=== PATIENT | male | born 1965 | race Hispanic/Latino ===

== ENCOUNTER 2017-12-30 08:04 | Inpatient (IN) | payer BC ==
--- NOTE | 2017-12-30 08:30 | ED PDOC ---
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 had mild tongue bite but otherwise no head injury and has been drowsy since. no sob/chest pain/abdomen pain/limb pain/dysuria. 12/30/17 08:27 Past Medical History - Provider Review Nursing Documentation Reviewed: Yes - Travel History Have you recently traveled outside US w/in the past 3 mons?: No If Yes, travel location?: [place] - Infectious Disease Hx of Infectious Diseases: None - Cardiac Hx Hypertension: Yes Other/Comment: IN unkown - Pulmonary Hx Respiratory Disorders: No - Neurological Hx Seizures: Yes Other/Comment: cva unknown - Psychiatric Hx Substance Use: No - Anesthesia Hx Anesthesia Reactions: No Family/Social History - Physician Review Nursing Documentation Reviewed: Yes Family/Social History: No Known Family HX Smoking Status: Unknown If Ever Smoked Hx Alcohol Use: Yes Frequency of alcohol use: Socially Hx Substance Use: No Allergies/Home Meds Allergies/Adverse Reactions: Allergies Penicillins Allergy (Verified 12/30/17 08:18) RASH lorazepam [From Ativan] Adverse Reaction (Verified 12/30/17 08:18) FATIGUE Home Medications: Home Meds Medication Instructions Recorded Confirmed Carvedilol [Coreg] 12.5 mg PO DAILY 12/30/17 12/30/17 Digoxin [Lanoxin] 0.25 mg PO DAILY 12/30/17 12/30/17 Folic Acid [Folic Acid] 1 gm PO DAILY 12/30/17 12/30/17 Magnesium Sulfate [Magnesium 250 mg PO DAILY 12/30/17 12/30/17 Sulfate] Pantoprazole Sodium [Protonix] 40 mg PO DAILY 12/30/17 12/30/17 Sodium Chloride [Sodium Chloride 2 gm PO TID 12/30/17 12/30/17 Tab] Spironolactone [Aldactone] 50 mg PO DAILY 12/30/17 12/30/17 Suvorexant [Belsomra] 10 mg PO HS 12/30/17 12/30/17 traZODone [Desyrel] 100 mg PO HS 12/30/17 12/30/17 Review of Systems - Review of Systems Constitutional: Normal Eyes: Normal ENT: Normal Respiratory: Normal Cardiovascular: Orthopnea Gastrointestinal: Normal Genitourinary Male: Normal Musculoskeletal: Normal Skin: Normal Neurological: Normal, Seizure Endocrine: Normal Hemo/Lymphatic: Normal Psychiatric: Normal Physical Exam Vital Signs Reviewed: Yes Vital Signs Temp Pulse Resp BP Pulse Ox 12/30/17 12:25 98 F 133 H 22 115/81 100 12/30/17 11:51 97 F L 142 H 19 122/75 99 12/30/17 09:59 98 F 139 H 20 108/72 98 12/30/17 08:21 98.0 F 133 H 16 107/76 95 Temperature: Afebrile Blood Pressure: Hypertensive Pulse: Tachycardic Respiratory Rate: Normal Appearance: Positive for: Well-Appearing, Non-Toxic, Comfortable Pain Distress: None Mental Status: Positive for: Lethargic - Systems Exam Head: Present: Atraumatic, Normocephalic Pupils: Present: PERRL, Other (left slighly enlarged pupil vs left b/l reactive) Extroacular Muscles: Present: EOMI Conjunctiva: Present: Normal Ears: Present: Normal Mouth: Present: Moist Mucous Membranes Pharnyx: Present: Normal Nose (External): Present: Atraumatic Nose (Internal): Present: Normal Inspection Neck: Present: Normal Range of Motion, Other (no ctl spinal or paraspinal tenderness) Respiratory/Chest: Present: Clear to Auscultation, Good Air Exchange Cardiovascular: Present: Regular Rate and Rhythm Abdomen: No: Tenderness, Distention, Normal Bowel Sounds, Peritoneal Signs, Rebound, Guarding, McBurney's Point Tender, Rovsing's Sign Present, Hernias, Feeding Tubes, Ostomy Tubes, Mass/Organomegaly, Scars, Other Back: Present: Normal Inspection Upper Extremity: Present: Normal Inspection Lower Extremity: Present: Normal Inspection Neurological: Present: Other (lethargy) Skin: Present: Warm, Normal Color Psychiatric: Present: Lethargic Medical Decision Making ED Course and Treatment: 52yoM, w hx of EF 25%, HTN, SIADH on replacement which states pt isn't the best with compliance, drinks 18 mcbride lites per day - alcohol withdrawal seizure 8yrs ago, CAD?/[place], CVA?, with longstanding left pupil enlargement vs right and now [place] by EMS from [place], has been drinking alcohol about 8-9 beers per day, and now having noted seizure generalized last night and since had x 8 with last 230am, sodium 119 and improved to 125, hb 12, potassium 3.1, anion gap 26, glucose 118, with valium given and then phenytoin 1gm/drip, thiamine 200mg iv/protonix 40mg/5% dextrose/0.9nacl/2gm magnesium. had mild tongue bite but otherwise no head injury and has been drowsy since. no sob/ chest pain/abdomen pain/limb pain/dysuria. ECG: sinus tachycardia wbc 9 hb 11 plts 337 CXR with atelectasis/infiltrate. granuloma. IV levaquin/vancomycin, ivf hydation bundle. 12/30/17 09:56 CT head: no acut intracranial with white matter changes. 12/30/17 09:58 BIPAP as pt sat 80s. 12/30/17 10:13 UA moderate blood/protein. 12/30/17 10:41 patient on bipap 97% - 100% o2sat. opens eyes, moving extremities. 12/30/17 10:45 Na 119 lactic acid 3.1 code sepsis called. IV levaquin/vancomycin, ivf hydation bundle na 75cc/hr due to seizure related to hyponatremia, pt stated EF 25% thus will hydrate gently. 12/30/17 11:28 K 4.4 etoh less than 10 12/30/17 11:56 pt recurrent lethargy, and having additional subtle seizures in the ED. will give keppra iv d/w Dr. West who stated will accept, ICU, neurolgy Jose White who was paged, nephrology Esteban Wells. d/w Dr. West, Dr. Grady and who agreed and will intubate for protection. Dr. Grady accepted to the ICU. 12/30/17 11:57 d/w Dr. Grady ICU who will evaluate patient. 12/30/17 12:36 procedure: patient consented from , etomidate/suchynyl coholine, glidescope visualized cords, ett 7.5 placed, yellow capnography, b/l bs, sat 98%. versed gtt and d/w who stated pt has fatigue but no allergic type symptoms with benzo's use. Reassessment Condition: Re-examined, Improved - Lab Interpretations Lab Results: 12/30/17 09:17 12/30/17 10:25 Lab Results 12/30/17 10:25: Troponin I 0.02 12/30/17 10:25: Sodium 120 L, Chloride 84 L, Potassium 4.4, Carbon Dioxide 25, Anion Gap 15, BUN < 2 L, Creatinine 0.4 L, Est GFR ( Amer) > 60, Est GFR (Non-Af Amer) > 60, Random Glucose 154 H, Calcium 7.3 L, Total Bilirubin 1.0, AST 103 H, ALT 24, Alkaline Phosphatase 176 H, Total Protein 6.6, Albumin 3.0, Globulin 3.5, Albumin/Globulin Ratio 0.9 L 12/30/17 10:25: APTT 35.9 12/30/17 10:25: pO2 69 H, VBG pH 7.29 L, VBG pCO2 60.0, VBG HCO3 28.9 H, VBG Total CO2 30.7 H, VBG O2 Sat (Calc) 94.2 H, VBG Base Excess 0.9, VBG Potassium 4.7, Sodium 119.0 L*, Chloride 83.0 L, Glucose 164 H, Lactate 3.1 H, FiO2 21.0, Venous Blood Potassium 4.7 12/30/17 10:25: Alcohol, Quantitative < 10 12/30/17 10:10: Urine Opiates Screen Negative, Urine Methadone Screen Negative, Ur Barbiturates Screen Negative, Ur Phencyclidine Scrn Negative, Ur Amphetamines Screen Negative, U Benzodiazepines Scrn Negative, U Oth Cocaine Metabols Negative, U Cannabinoids Screen Negative 12/30/17 09:41: Urine Color Light yellow, Urine Appearance Slight-cloudy, Urine pH 6.5, Ur Specific Golden 1.010, Urine Protein 30 H, Urine Glucose (UA) Negative, Urine Ketones Negative, Urine Blood Moderate H, Urine Nitrate Negative , Urine Bilirubin Negative, Urine Urobilinogen 0.2, Ur Leukocyte Esterase Negative, Urine RBC 0 - 2, Urine WBC 0 - 2, Ur Epithelial Cells None 12/30/17 09:17: WBC 9.0, RBC 3.11 L, Hgb 11.3 L, Hct 30.9 L, MCV 99.4, MCH 36.3 H, MCHC 36.6, RDW 15.8 H, Plt Count 337, MPV 9.1, Gran % 81.2 H, Lymph % (Auto) 5.2 L, Cherry % (Auto) 13.5 H, Eos % (Auto) 0.0 L, Baso % (Auto) 0.1, Gran # 7.31 H, Lymph # (Auto) 0.5 L, Cherry # (Auto) 1.2 H, Eos # (Auto) 0.0, Baso # (Auto) 0.01 I have reviewed the lab results: Yes - RAD Interpretation Radiology Orders: 12/30/17 08:26 HEAD W/O CONTRAST [CT] Stat CHEST PORTABLE [RAD] Stat 12/30/17 12:23 CHEST PORTABLE [RAD] Stat Head Of History: Radiologist (see mdm) - EKG Interpretation Interpreted by ED Physician: Yes (sinus tachycardia) Type: 12 lead EKG - Medication Orders Current Medication Orders: Folic Acid 1 mg/ Thiamine HCl 100 mg/ Multivitamins/Vitamin C 10 ml/ Dextrose 1 ,011.2 mls @ 100 mls/hr IV .Q10H7M SHERRIE Levofloxacin/Dextrose (Levaquin 750mg) 750 mg in 150 mls @ 100 mls/hr IVPB DAILY SHERRIE PRN Reason: Protocol Midazolam 100 mg/100ml in NS (Midazolam 100 Mg/100ml In Ns) 100 mg in 100 mls @ 1 mls/hr IV .Q24H PRN; Protocol; 1 MG/HR PRN Reason: Agitation Discontinued Medications Etomidate (Amidate) 20 mg IVP STAT STA Stop: 12/30/17 12:31 Sodium Chloride (Sodium Chloride 0.9%) 1,000 mls @ 100 mls/hr IV .Q10H SHERRIE Last Admin: 12/30/17 10:41 Dose: 100 mls/hr eMAR Start Stop Document 12/30/17 10:41 GMI (Rec: 12/30/17 10:42 [id number]) Intravenous Solution Start Date 12/30/17 Start Time 09:45 Vancomycin HCl (Vancomycin 1gm) 1 gm in 250 mls @ 167 mls/hr IVPB STAT STA PRN Reason: Protocol Stop: 12/30/17 11:10 Last Admin: 12/30/17 11:57 Dose: 167 mls/hr eMAR Start Stop Document 12/30/17 11:57 GMI (Rec: 12/30/17 11:58 [facility]MI [id number]) Intravenous Solution Start Date 12/30/17 Start Time 11:58 End Date 12/30/17 Levetiracetam 1,000 mg/ Sodium (Chloride) 110 mls @ 440 mls/hr IV ONCE ONE Stop: 12/30/17 12:08 Levofloxacin/Dextrose (Levaquin 750mg) 750 mg IVPB STAT STA PRN Reason: Protocol Stop: 12/30/17 09:42 Last Admin: 12/30/17 10:45 Dose: 750 mg eMAR Start Stop Document 12/30/17 10:45 GMI (Rec: 12/30/17 10:46 [facility]MI [id number]) Intravenous Solution Start Date 12/30/17 Start Time 10:00 Succinylcholine Chloride (Quelicin) 100 mg IV STAT STA Stop: 12/30/17 12:31 Disposition/Present on Arrival - Present on Arrival Any Indicators Present on Arrival: No History of DVT/PE: No History of Uncontrolled Diabetes: No Urinary Catheter: No History of Decub. Ulcer: No History Surgical Site Infection Following: None - Disposition Have Diagnosis and Disposition been Completed?: Yes Diagnosis: Pneumonia, Seizure, Hyponatremia Disposition: HOSPITALIZED Disposition Time: 12:40 Patient Plan: ICU Patient Problems: Current Active Problems Problem Status Onset Pneumonia Acute Seizure Acute Hyponatremia Acute Condition: CRITICAL Forms: [employer] ([place])
[2017-12-30 09:22] LABS: BASO # 0.01 K/mm3 (0.0-2.0); BASO % 0.1 % (0.0-3.0); GRAN # 7.31 (1.4-6.5); GRAN % 81.2 % (50.0-68.0); HEMOGLOBIN 11.3 g/dL (14.0-18.0); LYMPH # 0.5 (1.2-3.4); LYMPH % 5.2 % (22.0-35.0); MEAN CELL VOLUME 99.4 fl (80.0-105.0); MEAN CORPUSCULAR HEMOGLOBIN 36.3 pg (25.0-35.0); MEAN CORPUSCULAR HGB CONC 36.6 g/dl (31.0-37.0); MEAN PLATELET VOLUME 9.1 fl (7.0-11.0); MONO # 1.2 (0.1-0.6); MONO % 13.5 % (1.0-6.0); RBC 3.11 10^6/uL (3.5-6.1); RED CELL DISTRIBUTION WIDTH 15.8 % (11.5-14.5)
--- NOTE | 2017-12-30 09:25 | RAD ---
HISTORY: 52 yoM, seizure COMPARISON: No prior. FINDINGS: Note that the left lung apex is partially obscured by overlying mandible and facial soft tissue artifact. LUNGS: Bibasilar opacities may represent areas of atelectasis and or developing infiltrates. . Small calcified granuloma right lung apex. PLEURA: No significant pleural effusion identified, no pneumothorax apparent. CARDIOVASCULAR: Heart size is of borderline/mildly enlarged. OSSEOUS STRUCTURES: No significant abnormalities. VISUALIZED UPPER ABDOMEN: Normal. OTHER FINDINGS: Bilateral posterior fixation hardware seen overlying the lower cervical upper thoracic spine IMPRESSION: Bibasilar opacities may represent atelectasis and/or infiltrates.
[2017-12-30] MEDS ORDERED: Vancomycin 1gm in NS 250ml 1 GM/250 ML BAG IVPB STA (09:41)
[2017-12-30] MEDS ORDERED: levoFLOXacin 750 mg in D5W 150 ML BAG IVPB STA (09:41)
[2017-12-30] MEDS ORDERED: Sodium Chloride 0.9% 1,000 ML IV SCH (09:45)
--- NOTE | 2017-12-30 09:53 | CT ---
PROCEDURE: CT HEAD WITHOUT CONTRAST. HISTORY: 52yoM, with multiple seizures COMPARISON: None available. TECHNIQUE: Axial computed tomography images were obtained through the head/brain without intravenous contrast. Radiation dose: Total exam DLP = 987.08 mGy-cm. This CT exam was performed using one or more of the following dose reduction techniques: Automated exposure control, adjustment of the mA and/or kV according to patient size, and/or use of iterative reconstruction technique. FINDINGS: HEMORRHAGE: No acute parenchymal, subarachnoid nor extra-axial hemorrhage. BRAIN: Mild -moderate diffuse confluent chronic white matter ischemic changes seen extending peripherally into the deep and subcortical white matter both cerebral hemispheres. . In addition, more discrete chronic appearing superior basal ganglia/coronal radiata junction infarct also present. There may also be a few small faint small chronic left basal ganglia lacunar type infarcts as well. No obvious parenchymal nor extra-axial mass or collection seen on this noncontrast study. Moderate generalized volume loss. Vascular calcifications both carotid siphons and vertebral arteries. VENTRICLES: No obstructive hydrocephalus. CALVARIUM: Calvarium appears intact. PARANASAL SINUSES: Unremarkable as visualized. No significant inflammatory changes. MASTOID AIR CELLS: Unremarkable as visualized. No inflammatory changes. OTHER FINDINGS: None. IMPRESSION: No acute intracranial hemorrhage. Moderate chronic white matter ischemic changes as above.There may also be a few small faint small chronic left basal ganglia lacunar type infarcts as well.
[2017-12-30 09:54] LABS: PH,URINE 6.5 (4.7-8.0); URINE BILIRUBIN NEGATIVE (NEGATIVE); URINE BLOOD MODERATE (NEGATIVE); URINE GLUCOSE (UA) NEGATIVE (NEGATIVE); URINE LEUKOCYTE ESTERASE NEGATIVE Leu/uL (NEGATIVE); URINE PROTEIN 30 mg/dL (<30 mg/dL); URINE UROBILINOGEN 0.2 E.U./dL (<1 E.U./dL)
[2017-12-30 09:59] LABS: URINE APPEARANCE SLIGHT-CLOUDY (CLEAR); URINE COLOR LIGHT YELLOW (YELLOW)
[2017-12-30 10:29] LABS: URINE RBC 0 - 2 /hpf (0-2); URINE WBC 0 - 2 /hpf (0-6)
[2017-12-30 10:40] LABS: VENOUS BLOOD GAS BASE EXCESS 0.9 mmol/L (0.0-2.0); VENOUS BLOOD GAS PO2 69 mm/Hg (30-55); VENOUS BLOOD PH 7.29 (7.32-7.43)
[2017-12-30 11:10] LABS: CALCIUM 7.3 mg/dL (8.4-10.5); GFR AFRICAN-AMERICAN > 60; GFR NON-AFRICAN AMERICAN > 60
[2017-12-30 11:11] LABS: ALB/GLOB RATIO 0.9 (1.1-1.8); ALT/SGPT 24 U/L (7-56); AST/SGOT 103 U/L (17-59); BLOOD UREA NITROGEN < 2 mg/dL (7-21)
[2017-12-30 11:12] LABS: BARBITURATES, UR NEGATIVE (NEGATIVE); BENZODIAZEPINES, UR NEGATIVE (NEGATIVE)
[2017-12-30 11:13] LABS: OPIATES, UR NEGATIVE (NEGATIVE); PHENCYCLIDINE, UR NEGATIVE (NEGATIVE)
[2017-12-30] MEDS ORDERED: levETIRAcetam 1,000 MG in Sodium Chloride 0.9% 100 ML IV ONE (11:54)
[2017-12-30] MEDS ORDERED: Folic Acid 1 MG, Thiamine 100 MG, Multivitamin (MVI) 10 ML in Dextrose 5% In Water 1,00... IV SCH (12:00)
[2017-12-30] MEDS ORDERED: Etomidate 20 mg/10ml Inj IV ONE (12:13)
[2017-12-30] MEDS ORDERED: Succinylcholine 200 mg/10 ml Inj IV ONE (12:13)
[2017-12-30] MEDS ORDERED: Etomidate 20 mg/10ml Inj IVP STA (12:30)
[2017-12-30] MEDS ORDERED: Succinylcholine 200 mg/10 ml Inj IV STA (12:30)
--- NOTE | 2017-12-30 12:39 | RAD ---
HISTORY: Intubated COMPARISON: Comparison made with prior chest radiograph 12/30/2017 at 922 hours FINDINGS: Interval placement ETT, the tip of which lies approximately 6.4 cm above flor. LUNGS: Bibasilar opacities right greater than left which may represent atelectasis. Developing infiltrates could be excluded with followup radiographs. . PLEURA: No significant pleural effusion identified, no pneumothorax apparent. CARDIOVASCULAR: Normal. OSSEOUS STRUCTURES: No change. VISUALIZED UPPER ABDOMEN: Normal. OTHER FINDINGS: None. IMPRESSION: Interval placement ETT as above. Otherwise, no significant interval change in the appearance of what probably represents mild bibasilar atelectasis
--- NOTE | 2017-12-30 13:07 | CARD ---
APPROVED REPORT EKG Measurement Heart [id number] <Conclusion> Sinus tachycardia Possible Left atrial enlargement Rightward axis Inferior infarct, age undetermined Anterior infarct, age undetermined Abnormal ECG
[2017-12-30] MEDS ORDERED: Dexmedetomidine 400mcg/100mL 400 MCG/100 ML BOTTLE IV PRN (13:31)
[2017-12-30 13:55] LABS: VENOUS BLOOD GAS BASE EXCESS 4.7 mmol/L (0.0-2.0); VENOUS BLOOD GAS PO2 84 mm/Hg (30-55); VENOUS BLOOD PH 7.45 (7.32-7.43)
[2017-12-30 13:59] LABS: ARTERIAL BLOOD GAS HCO3 26.5 mmol/L (21-28); ARTERIAL BLOOD GAS O2 CAPACITY 14.8 mL/dl (16-24); ARTERIAL BLOOD GAS O2 CONTENT 14.8 ML/dl (15-23); ARTERIAL BLOOD GAS O2 SAT 100.1 % (95-98); ARTERIAL BLOOD GAS PCO2 39 mm/Hg (35-45); ARTERIAL BLOOD GAS PH 7.44 (7.35-7.45); ARTERIAL BLOOD GAS TCO2 27.7 mmol.L (22-28)
[2017-12-30 14:02] LABS: ALB/GLOB RATIO 0.9 (1.1-1.8); ALT/SGPT 27 U/L (7-56); AST/SGOT 83 U/L (17-59); BLOOD UREA NITROGEN < 2 mg/dL (7-21); GFR AFRICAN-AMERICAN > 60; GFR NON-AFRICAN AMERICAN > 60
[2017-12-30] MEDS ORDERED: Multivitamin (MVI) 10 ML, Thiamine 100 MG, Folic Acid 1 MG in Sodium Chloride 0.9% 1,00... IV ONE ×2 (14:04→17:10)
[2017-12-30 14:13] LABS: BASO # 0.01 K/mm3 (0.0-2.0); BASO % 0.1 % (0.0-3.0); GRAN # 9.02 (1.4-6.5); GRAN % 87.1 % (50.0-68.0); LYMPH # 0.4 (1.2-3.4); LYMPH % 3.9 % (22.0-35.0); MEAN CELL VOLUME 100.6 fl (80.0-105.0); MEAN CORPUSCULAR HEMOGLOBIN 35.5 pg (25.0-35.0); MEAN CORPUSCULAR HGB CONC 35.3 g/dl (31.0-37.0); MEAN PLATELET VOLUME 8.6 fl (7.0-11.0); MONO # 0.9 (0.1-0.6); MONO % 8.9 % (1.0-6.0); PLATELET COUNT 276 10^3/uL (120.0-450.0); RED CELL DISTRIBUTION WIDTH 15.7 % (11.5-14.5); WHITE BLOOD COUNT 10.4 10^3/ul (4.5-11.0)
[2017-12-30] MEDS ORDERED: Metoprolol 1 mg/ml Inj IVP STA (14:23)
[2017-12-30 14:42] LABS: LYMPHOCYTE 5 % (22.0-35.0); MONOCYTE 7 % (1.0-6.0); NEUTROPHIL 88 % (50.0-70.0)
[2017-12-30] MEDS: levoFLOXacin 500 mg in D5W 500 MG/100 ML BAG IVPB SCH (17:07)
[2017-12-30] MEDS: Vancomycin 1gm in NS 250ml 1 GM/250 ML BAG IVPB SCH (17:27)
[2017-12-30] MEDS ORDERED: Sodium Chloride 0.9% 500 ML IV STA (17:29)
[2017-12-30] MEDS: Meropenem IV 1 gm in NS 50 ML IVPB SCH ×2 (17:38→21:15)
[2017-12-30] MEDS: levETIRAcetam 500mg IVPB 500 MG/100 ML BAG IV SCH (21:15)
--- NOTE | 2017-12-30 21:23 | CON ---
DATE: 12/30/2017 HAIR OR BEAUTY SALON ASSISTANT NOTE REQUESTING PHYSICIAN: Julian West DO CHIEF COMPLAINT: Patient had multiple seizures, DTs, hyponatremia. HISTORY OF PRESENT ILLNESS: Mr. Chopra is a 52-year-old male that [place] cruise [place], noted to have been drinking over the week and started having seizures approximately 24 hours ago. The patient has had approximately 10 seizures. At this time, he is admitted to the intensive care unit and is intubated with FiO2 of 100%. Patient has felt that maybe related DTs are occurring and Precedex as well as banana bag has been started. May be a component of pneumonia and sepsis with ID consult called and antibiotics started. Patient is noted to be tachycardic at this time. He has a past history of alcohol abuse and DTs in the past. The patient had been drinking during his vacation on the cruise and has a history of alcohol withdrawal seizures approximately 8 years ago. He has a past history of coronary artery disease, myocardial infarction as well as CVA and a cervical neck fusion several months ago. Also, the patient has a history of SIADH and he presents with hyponatremia. PAST MEDICAL HISTORY: As above. ALLERGIES: HE HAS ALLERGIES TO PENICILLIN AND ATIVAN. MEDICATIONS: Can be evaluated as per the nurse's intake form. SOCIAL HISTORY: Patient has a past history of drug abuse. He is a present EtOH abuser and not sure if he has a history of smoking. FAMILY HISTORY: Noncontributory. REVIEW OF SYSTEMS: Unable to assess because the patient is intubated on the ventilator. PHYSICAL EXAMINATION: VITAL SIGNS: His temperature is 98, his pulse is 135, respirations are 20, and his BP is 134/87. SKIN: Warm and dry. HEENT: Head: Atraumatic, normocephalic. Eyes: Reactive to light. Ear, Nose, and Throat: Seemed to be within normal limits. NECK: Supple. No JVD. No thyroid enlargement. No lymph nodes. HEART: Regular rate and rhythm. Normal S1, S2, but tachycardic. LUNGS: His lungs reveal mild rhonchi bilaterally. ABDOMEN: Soft. Decreased bowel sounds. No organomegaly noted. GENITALIA AND RECTAL: Deferred. MUSCULOSKELETAL: No joint deformities. EXTREMITIES: Reveal no edema. NEUROLOGICAL: Patient is moving all extremities at this time. LABORATORY DATA: Reveal a white count of 9, hemoglobin of 11.3, hematocrit 30.9 with platelets of 337,000. His PTT is 35.9. VBG prior to intubation revealed a pH of 7.29, pO2 of 69, pCO2 of 60. Patient's sodium is 120, potassium 4.4, chloride 84 with a CO2 of 25, BUN of less than 2 and a creatinine of 0.4, glucose of 157, and mild elevation in his AST and alkaline phosphatase. Patient's lactate is 3.1. As far as the patient's chest x-ray, chest x-ray reveals that there is probable bibasilar atelectasis with possible infiltrates. CT of the head reveals no acute intracranial hemorrhage, moderate chronic white matter ischemic changes, small chronic left basal ganglia lacunar-type infarct as well. IMPRESSION: As far as my impression is concerned, this patient has lower lobe pneumonia/atelectasis. He has respiratory failure requiring ventilator support. Patient has ethyl alcohol seizures, multiple over the last 24 hours with altered mental status. 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 Patient is tachycardic as well. He has a past history of coronary artery disease, myocardial infarction, cerebrovascular accident, hypertension, and C4 to T1 spinal fusion. PLAN: As far as our plan, patient is on the ventilator and we will decrease the FiO2 as tolerated. Patient is getting banana bag and Precedex. We will continue with the antibiotics as per ID. Note, consults have been called with ID, Renal, and Neurology. The patient has gotten Keppra and the antibiotics so far is vancomycin and Levaquin. We will follow his electrolytes closely and correct as needed. Patient is scheduled for arterial blood gas and we will continue to treat aggressively along with the other consultants and the primary care doctor. Rodolfo Echavarria MD
[2017-12-30 21:55] LABS: INR 1.34 (0.93-1.08); PROTHROMBIN TIME 15.4 SECONDS (9.4-12.5)
[2017-12-30 22:02] LABS: ALB/GLOB RATIO 0.9 (1.1-1.8); ALBUMIN 2.6 g/dL (3.0-4.8); ALT/SGPT 34 U/L (7-56); AST/SGOT 62 U/L (17-59); BLOOD UREA NITROGEN < 2 mg/dL (7-21); CALCIUM 6.8 mg/dL (8.4-10.5); GFR AFRICAN-AMERICAN > 60; GFR NON-AFRICAN AMERICAN > 60
[2017-12-30] MEDS ORDERED: NOREPINEPHRINE BIT/0.9 % NACL 4 MG/250 ML BAG IV PRN (23:18)
--- NOTE | 2017-12-30 23:29 | HP ---
DATE OF EXAM: 12/30/2017 HISTORY OF PRESENT ILLNESS: I saw Tino in the emergency room. I was called down by the ER doctor. He comes from the cruise ship. He is not doing well. He is having seizures on the cruise ship. He normally drinks 18 beers a day. He only drank 8 or 9 yesterday. It could be alcohol withdrawal. He is out of it now and BiPAP in the bed. He is also seizing right in front of me. We are going to put him on a Keppra drip and try to get him to the Intensive Care Unit and will probably need to be intubated because he is on BiPAP right now. He is a 52-year-old male with his , who is a nurse practitioner, states he is an alcoholic who drinks 18 beers a day. He has been drinking this way for 8 years. She cannot get him to stop. PAST MEDICAL HISTORY: He has a past medical history of CAD, [place], CVA. He had a longstanding left pupil enlargement from old stroke. He is having seizures since this morning. They are from [place], [place]. He was given Valium and Dilantin on the cruise ship. He had mild tongue biting. Otherwise, no head injury. He is very drowsy, not waking up at this time. He is actively seizing in front of me. He was just in [place]. He has a history of hypertension, myocardial infarction, seizures, CVA. FAMILY HISTORY: No known family history. SOCIAL HISTORY: He is an alcoholic. Drinks daily. No apparent substance abuse. Not sure if he has ever smoked. ALLERGIES: PENICILLIN AND ATIVAN. MEDICATIONS: He is currently on Coreg, Lanoxin, folic acid, magnesium sulfate, Protonix, sodium chloride. He has low sodium chronically. Aldactone, Belsomra, Desyrel. REVIEW OF SYSTEMS: Difficult to get any kind of review of systems. He is unresponsive in the bed in the ER. states that he has not really woken up for about 10 hours now. PHYSICAL EXAMINATION: VITAL SIGNS: He has a 97 temperature, 142 pulse, 19 respiratory rate, 122/75 blood pressure, 99% O2 sat on oxygen. GENERAL: He is lethargic. He is out of bed, unresponsive. HEENT: Head is atraumatic, normocephalic. Left enlarged pupil secondary to old stroke. No apparent trauma to the head that I could tell. He said he beat his tongue on the cruise ship. HEART: Regular rate and tachy. LUNGS: Decreased breath sounds. Poor inspiration, on BiPAP. ABDOMEN: Soft. Positive bowel sounds. No apparent guarding or rebound. EXTREMITIES: No edema. SKIN: For what I could tell is intact. Warm and dry. LABORATORY DATA: He has a negative urine drug screen. Alcohol less than 10, this could be alcohol withdrawal. Urine has moderate blood, negative. He has 120 sodium, 4.4 potassium, BUN less than 2, creatinine 0.4, GFR is greater than 60, sugar is 154, calcium is 7.3. Total bili is 1, AST is 103, ALT is 45, alk phos 176, total protein 6.6. He might need to be on 3% saline. Blood gas showed 119 sodium. White count is 9, hemoglobin 11.3, hematocrit 30.9, platelets of 337. Chest x-ray showed possible pneumonia and head CT showed chronic strokes in the past. He will have consults with renal, neuro, high school assistant principal, gravity prospecting operator, and veterinary technician instructor. He is in serious condition and he is to go to the intensive care unit. Probably, he will be intubated shortly. He has seizures, active; alcohol withdrawal; infiltrates; low sodium. Julian West DO
[2017-12-31] MEDS: Midazolam 100 mg/100ml in NS 100 MG/100 ML SOL IV PRN ×2 (00:44→16:03)
[2017-12-31] MEDS ORDERED: Magnesium Sulfate 2 GM in Sodium Chloride 0.9% 100 ML IVPB ONE ×2 (02:11→03:00)
--- NOTE | 2017-12-31 02:15 | PCM.PROC ---
Procedures Attestation:: I certify that I have explained the specified Operation(s) or Procedure(s), risks, benefits and reasonable alternatives to the Patient and/or other person responsible. The opportunity was given to ask questions and all questions answered - Central Line Placement Right Internal Jugular Triple Lumen Catheter Aseptic technique was employed throughout the procedure: Hand Hygiene done prior to procedure, Full sterile barriers (mask, hair cover, sterile gown, sterile gloves), Full body sterile drape, Chloraprep Antiseptic: 30 second prep for IJ or SC sites CVP Time Out Performed: Yes Pt. Placed on Pulse Ox Monitor: Yes Central Line Prep: Chlorhexidine-Alcohol Combination Ultrasound Used for Placement: Yes Central Line Lumen Inserted: triple Central Line Length: 16 cm Post Procedure: Sutured in Place, Good Blood Return, All Ports Aspirated, Flushed, Capped, Sterile Dressing Applied Secured by: Suture Post procedure dressing: Chlorhexidine disc (Biopatch) Post Procedure X-Ray: Yes Patient Tolerated Procedure: Well Immediate Complications: None
[2017-12-31 02:17] LABS: VENOUS BLOOD GAS BASE EXCESS 5.8 mmol/L (0.0-2.0); VENOUS BLOOD GAS PO2 40 mm/Hg (30-55); VENOUS BLOOD PH 7.43 (7.32-7.43)
[2017-12-31] MEDS ORDERED: MULTIVITAMIN IV SCH (03:15)
[2017-12-31] MEDS ORDERED: [UNRECOGNIZED DRUG - OTHER] IV SCH (03:15)
[2017-12-31] MEDS ORDERED: FOLIC ACID IV SCH (03:15)
[2017-12-31] MEDS ORDERED: THIAMINE IV SCH (03:15)
--- NOTE | 2017-12-31 04:43 | CON ---
DATE: 12/30/2017 The patient was seen in the emergency room earlier. CHIEF COMPLAINT: Respiratory failure times one day. HISTORY OF PRESENT ILLNESS: This is a 52-year-old male with a history of SIADH, on replacement who is an alcoholic, significant alcohol use and history of withdrawal seizures, questionable coronary artery disease and myocardial infarction, cerebrovascular accident, brought in from the cruise ship and drinking significant amount of alcohol on the ship. Noted to have seizures and was given Valium and with a history of hypertension and seizures. The patient was seen in the emergency room, unable to communicate and intubated on a ventilator. Infectious Disease consultation requested. PAST MEDICAL HISTORY: Significant for alcoholism, hypertension, pancreatitis, kidney stones, chronic obstructive lung disease. PAST SURGICAL HISTORY: Significant for cardiac catheterization. ALLERGIES: THE PATIENT IS ALLERGIC TO PENICILLIN AND LORAZEPAM. MEDICATIONS AT HOME: Reveals the patient is on Aldactone, Protonix, Lanoxin, Coreg, magnesium, folic acid, sodium chloride tablets, Belsomra, Desyrel. PHYSICAL EXAMINATION GENERAL: The patient is in bed, intubated on a ventilator. VITAL SIGNS: Temperature of 98, blood pressure is 123/70, respiratory rate of 22, heart rate of 119. HEENT: Unremarkable. NECK: Supple. LUNGS: Have decreased breath sounds. HEART: Normal S1, S2. ABDOMEN: Soft, nontender. LABORATORY DATA: Reveals a white count of 9, hemoglobin of 11, platelets of 337. The patient has 88% polys and coag is 35 and oxygenation is reviewed. Blood gases are reviewed. BUN of 2, creatinine of 0.4. AST is 103, alkaline phosphatase is 173. Sodium is 120. Urinalysis is noted, 0-2 wbc's. The patient had a chest x-ray read by Dr. Calvin Amaro, atelectasis, can exclude infiltrates, placement of a G-tube. The patient also had a CAT scan of the head. No acute hemorrhage in earlier x-ray. Chest x-ray dated 03/30 are basilar infiltrates may represent atelectasis or developing infiltrates, also read by Dr. Calvin Amaro. EKG is noted, QTc of 442. Review of orders revealed blood cultures, urine cultures have been ordered. MRSA screen has been ordered. We will order sputum cultures. We will order an HIV because of his age of 52 and the hepatitis profile. We will also order a procalcitonin and we will start the patient on vancomycin, meropenem, although HE IS ALLERGIC TO PENICILLIN AND LEVAQUIN. We will also order a urine for Legionella antigen and we will make further recommendations pending pancultures, initial workup and clinical response. We will give each antibiotic first dose now to assure adequate antibiotic coverage for today pending blood cultures, urine cultures, sputum cultures, serology, imaging results and we will follow closely with you. Kumar Garvin MD
[2017-12-31 04:44] LABS: MEAN CELL VOLUME 101.3 fl (80.0-105.0); MEAN CORPUSCULAR HEMOGLOBIN 35.7 pg (25.0-35.0); MEAN CORPUSCULAR HGB CONC 35.2 g/dl (31.0-37.0); MEAN PLATELET VOLUME 8.8 fl (7.0-11.0); RBC 2.3 10^6/uL (3.5-6.1); WHITE BLOOD COUNT 8.3 10^3/ul (4.5-11.0)
[2017-12-31 04:54] LABS: INR 1.26 (0.93-1.08); PARTIAL THROMBOPLASTIN TIME 38.1 Seconds (25.1-36.5); PROTHROMBIN TIME 14.4 SECONDS (9.4-12.5)
[2017-12-31] MEDS: Meropenem IV 1 gm in NS 50 ML IVPB SCH ×3 (05:14→23:19)
[2017-12-31 05:29] LABS: ALB/GLOB RATIO 0.8 (1.1-1.8); ALBUMIN 2.2 g/dL (3.0-4.8); ALT/SGPT 23 U/L (7-56); AST/SGOT 48 U/L (17-59); BLOOD UREA NITROGEN 2 mg/dL (7-21); CALCIUM 7.1 mg/dL (8.4-10.5); GFR AFRICAN-AMERICAN > 60; GFR NON-AFRICAN AMERICAN > 60
[2017-12-31 05:43] LABS: HEMOGLOBIN 8.2 g/dL (14.0-18.0)
[2017-12-31] MEDS: Vancomycin 1gm in NS 250ml 1 GM/250 ML BAG IVPB SCH (06:02)
--- NOTE | 2017-12-31 06:32 | CP.PCM.PCO ---
Additional Comments - Additional Comments Additional Comments: Overnight Events: -SBP ranging in 80s yesterday evening -Intermittent seizure-like activity noted by RN -Therefore, Versed drip started as a result (and Precedex discontinued) -After starting Versed drip, seizure-like activity appears to have resolved -To avoid hypotension as side effect of Versed, low-dose Levophed drip also started -As a result, TLC (RIJ) placed (without any complications) -Also, on AM labs, Hgb=8.2 (down from 11.0 yesterday) -No overt bleeding noted -Therefore, stat repeat CBC ordered (result pending) -Will sign-out above events to daytime boxing and pressing supervisor (Dr. Echavarria)
[2017-12-31 06:59] LABS: ARTERIAL BLOOD GAS HCO3 27.9 mmol/L (21-28); ARTERIAL BLOOD GAS HEMOGLOBIN 7.9 g/dL (11.7-17.4); ARTERIAL BLOOD GAS O2 CONTENT 10.9 ML/dl (15-23); ARTERIAL BLOOD GAS O2 SAT 99.1 % (95-98); ARTERIAL BLOOD GAS PCO2 35 mm/Hg (35-45); ARTERIAL BLOOD GAS PH 7.51 (7.35-7.45)
[2017-12-31 07:15] LABS: HEMOGLOBIN 8.1 g/dL (14.0-18.0); MEAN CELL VOLUME 101.3 fl (80.0-105.0); MEAN CORPUSCULAR HEMOGLOBIN 35.7 pg (25.0-35.0); MEAN CORPUSCULAR HGB CONC 35.2 g/dl (31.0-37.0); MEAN PLATELET VOLUME 8.6 fl (7.0-11.0); RBC 2.27 10^6/uL (3.5-6.1); RED CELL DISTRIBUTION WIDTH 16.2 % (11.5-14.5); WHITE BLOOD COUNT 7.9 10^3/ul (4.5-11.0)
[2017-12-31] MEDS: levoFLOXacin 500 mg in D5W 500 MG/100 ML BAG IVPB SCH (09:03)
[2017-12-31] MEDS: levETIRAcetam 500mg IVPB 500 MG/100 ML BAG IV SCH ×2 (09:06→21:47)
[2017-12-31] MEDS: Multivitamin (MVI) 10 ML, Folic Acid 1 MG, Thiamine 100 MG in Sodium Chloride 0.9% 1,00... IV SCH (09:07)
[2017-12-31] MEDS ORDERED: Sodium Chloride 3% 500 ML IV SCH (09:30)
--- NOTE | 2017-12-31 09:34 | RAD ---
HISTORY: Status post TLC placement. COMPARISON: No prior. FINDINGS: Interval placement right IJ triple-lumen catheter with tip in the SVC. Status post TLC placement. No change in situ endotracheal tube the tip of which lies approximately 5.6 cm above flor. LUNGS: Mild bibasilar atelectasis and/or infiltrate right lung base. Minimal atelectasis left lung base PLEURA: No significant pleural effusion identified, no pneumothorax apparent. CARDIOVASCULAR: Normal. OSSEOUS STRUCTURES: No change multilevel posterior fixation hardware lower cervical/ upper thoracic spine VISUALIZED UPPER ABDOMEN: Normal. OTHER FINDINGS: None. IMPRESSION: Support lines and tubes as above Mild bibasilar atelectasis and/or infiltrate right lung base. Minimal atelectasis left lung base
--- NOTE | 2017-12-31 09:58 | RAD ---
HISTORY: Intubation COMPARISON: Comparison made with prior study 12/30/2017 at 2316 hours FINDINGS: In situ ETT, tip of which lies approximately 4.0 cm above flor. . No change right IJ triple-lumen catheter tip in the SVC. LUNGS: Mild central pulmonary vascular congestive changes with what appears represent early bilateral lower lobe alveolar-type infiltrates. PLEURA: No significant pleural effusion identified, no pneumothorax apparent. CARDIOVASCULAR: Cardiac silhouette unchanged OSSEOUS STRUCTURES: Posterior fixation hardware lower cervical upper thoracic region remains unchanged VISUALIZED UPPER ABDOMEN: Normal. OTHER FINDINGS: None. IMPRESSION: Support lines and tubes as above. Mild central pulmonary vascular congestive changes with what appears represent early bilateral lower lobe alveolar-type infiltrates.
[2017-12-31] MEDS ORDERED: levoFLOXacin 750 mg in D5W 750 MG/150 ML BAG IVPB SCH (10:00)
[2017-12-31] MEDS ORDERED: levETIRAcetam 1,000 MG in Sodium Chloride 0.9% 100 ML IV STA (11:30)
--- NOTE | 2017-12-31 11:37 | PN ---
DATE: 12/31/2017 SUBJECTIVE: The patient is in bed. No acute distress. Nontoxic; however, remains intubated on the ventilator. Appears comfortable. Was seen very early this morning. PHYSICAL EXAMINATION: VITAL SIGNS: Temperature is 99.6, blood pressure is 84/50, respiratory rate on the vent, heart rate of 116. HEENT: Examination of HEENT is ET tube in place. NECK: Supple. LUNGS: Have decreased breath sounds. HEART: Normal S1 and S2. ABDOMEN: Soft, nontender. No rebound. No guarding. LABORATORY DATA: Laboratory examination reveals a white count of 7.9, hemoglobin of 8 and the patient has 87% granulocytes and 3% lymphocytes. Coagulation is INR is 1.26. Blood gases are reviewed. The patient's sodium is 123 with a BUN of 2, creatinine of 0.4 and random glucose is 145 and procalcitonin 0.23 with normal alk phos at this point and normal LFTs. Urinalysis is unremarkable. Toxicology is noted and HIV is nonreactive. Microbiology reveals the blood cultures are negative. Urine cultures are negative. Imaging reveals the patient's chest x-ray from today read by Dr. Calvin Amaro, vascular congestion, early alveolar-type infiltrates cannot be excluded. Dr. Rueda's report is reviewed. ASSESSMENT AND PLAN: A 52-year-old male with a history of syndrome of inappropriate antidiuretic hormone, which is on replacement, alcoholic, significant alcohol use and withdrawal seizures and coronary artery disease, myocardial infarction, cerebrovascular accident. Brought in from the cruise ship after having significant alcohol consumption. The patient with seizures and history of hypertension and seizures and kidney stones and chronic obstructive lung disease, history of pancreatitis, now with respiratory failure, intubated on the ventilator with systemic inflammatory response syndrome with negative blood cultures, negative urine cultures, negative procalcitonin. Currently on Levaquin and meropenem, vancomycin. The patient is afebrile. Dr. Echavarria's consultation from yesterday is reviewed and he feels the patient has lower lobe atelectasis/pneumonia, alcoholic seizures, syndrome of inappropriate antidiuretic hormone, antidiuretic hormone with the negative blood cultures. We will discontinue the vancomycin. Urine Legionella antigen is pending. We will continue Levaquin and we will also add acyclovir. We will discuss with Neurology regarding need for spinal tap as the patient continues to have seizures. Kumar Garvin MD
[2017-12-31 12:01] LABS: BLOOD UREA NITROGEN 3 mg/dL (7-21); CALCIUM 7.3 mg/dL (8.4-10.5); GFR AFRICAN-AMERICAN > 60; GFR NON-AFRICAN AMERICAN > 60
[2017-12-31] MEDS: Propofol 10 mg/ml 1,000 MG/100 ML VIAL IV PRN (12:18)
--- NOTE | 2017-12-31 12:26 | PN ---
DATE: 12/31/2017 PHOTO CHECKER AND ASSEMBLER NOTE LOCATION: [facility]. SUBJECTIVE: The patient is on ventilator, FiO2 of 30%, oxygenating well. He continues to require Levophed to support his blood pressure and is on Versed for sedation. The patient also continues to have left arm twitching, occasionally question whether these are episodes of seizure or the fact that he is having DTs. Patient has been given Ativan, which helps with the left arm tremors. Chart does state that THE PATIENT IS ALLERGIC TO ATIVAN, but in talking with his , HE IS NOT ALLERGIC TO ATIVAN and he has not had any adverse effects since we have been giving it here in the hospital. PHYSICAL EXAMINATION: VITAL SIGNS: Patient's temperature is 99.6, his pulse is 116, BP is 105/50 and respirations are 20 and O2 saturation is 100%. HEENT: Head is atraumatic, normocephalic. Eyes: Reactive to light. Ear, nose, and throat: Seemed to be within normal limits. NECK: Supple. No JVD. No thyroid enlargement. No lymph nodes. HEART: Has regular rate and rhythm. Normal S1, S2, but tachycardic. LUNGS: Reveal good breath sounds bilaterally. ABDOMEN: Soft. Decreased bowel sounds. GENITALIA: Deferred. RECTAL: Deferred. MUSCULOSKELETAL: No joint deformities. EXTREMITIES: Reveal no edema. NEUROLOGICAL: He is sedated on the ventilator. LABORATORY DATA: As far as his laboratories, his sodium is 123, potassium 3.3, chloride 89, CO2 of 29 with a BUN of 2, creatinine of 0.4 and a glucose of 145. His white blood count is 7.9, hemoglobin is 8.1, hematocrit 23 with platelets of 250,000. Arterial blood gas reveals a pH of 7.51, pCO2 of 35, pO2 of 122. Chest x-ray is pending. IMPRESSION: As far as my impression, patient has lower lobe pneumonia and atelectasis with respiratory failure requiring ventilator support. He has ethyl alcohol seizures, and history of alcohol abuse and seems to be in DTs at this time. Patient has hyponatremia with a history of syndrome of inappropriate antidiuretic hormone secretion and at this time is tachycardic with hypotension that requires Levophed. The patient has a history of coronary artery disease, myocardial infarction, cerebrovascular accident, hypertension, and C4-T1 spinal fusion. PLAN: As far as our plan, we will continue with ventilator support and decrease the FiO2 as tolerated. The patient is getting Levophed to support his blood pressure and is on Versed for sedation. It is noted that laboratories were repeated to evaluate his hemoglobin and it is noted that is 8.1 at this time. Patient is getting periodic Ativan for seizures and Keppra. He is being followed with chest x-ray and arterial blood gas. He is on antibiotics of vanco and Levaquin and we will continue to treat aggressively along with the other consultants and the primary care doctor. Rodolfo Echavarria MD
--- NOTE | 2017-12-31 14:18 | CP.PCM.CON ---
History of Present Illness - History of Present Illness History of Present Illness: renal consult note 52 yr old currently intubated and sedated on pressor, and anti seizure meds is admitted after having seziure on cruise. hx is obtained from . pateint has long standing hx of alcohol dependence, htn, siadh on salt tabs daily heavy drinker is admitted after having seizure on ship. he has been drinking beer daily on [place] ship last admission was in october 2017 in [place], when the sodium was 132 on dc. one episode of hx of seizure 8 years ago when he was in alcohol withdrawl. f/h; negative for kidney disease social hx; lives in [place], drinks alcohol 8-10 beer daily medical hx: alcohol dep, htn complete ros is unable to obtain as intubated pe: vitals reviewed intubated sedated heent normal op moist ett + s1s2 present, tachycardia no resp distress, vent dep no edema abd soft non distended skin normal ao times 0 psy unable to assess A&P: acute on chronic hyponatremia/alcohol dependence/seizure disorder/acute resp failure sodium on admission was 120 and now 123, still having active seizure i have ordered urine studies and urine osm and serum osm recommend 3% saline @ 10 cc per hour with no bolus monitor BMP q6 monitor I&Os vent and pressor support per icu d/w marble cutter Past Patient History - Infectious Disease Hx of Infectious Diseases: None - Past Social History Smoking Status: Current Some Days Smoker - CARDIAC Hx Cardiac Disorders: Yes Hx Angina: Yes Hx Cardia Arrhythmia: Yes Hx Circulatory Problems: No Hx Congestive Heart Failure: Yes Hx Heart Murmur: No Hx Heart Transplant: No Hx Hypercholesterolemia: No Hx Hypertension: Yes Hx Internal Defibrillator: No Hx Mitral Valve Prolapse: No Hx Pacemaker: No Hx Peripheral Edema: No Hx Peripheral Vascular Disease: No Other/Comment: Echo - 25 % Ef - PULMONARY Hx Respiratory Disorders: Yes Hx Asthma: No Hx Bronchitis: No Hx Chronic Obstructive Pulmonary Disease (COPD): Yes Hx Emphysema: No Hx Pneumonia: No Hx Respiratory Aspiration: No Hx Respiratory Tract Infection: No Hx Sleep Apnea: No Hx Tuberculosis: No - NEUROLOGICAL Hx Neurological Disorder: Yes Hx Alzheimer's Disease: No HX Cerebrovascular Accident: Yes Hx Dementia: No Hx Dizziness: No Hx Meningitis: No Hx Migraine: No Hx Parkinson's Disease: No Hx Seizures: Yes Hx Transient Ischemic Attacks (TIA): No - HEENT Hx HEENT Problems: No - RENAL Hx Chronic Kidney Disease: No Hx Dialysis: No Hx Kidney Stones: Yes Hx Neurogenic Bladder: No Hx Pyelonephritis: No Hx Renal (Kidney) Cancer: No Hx Renal Failure: No Other/Comment: SIADH - ENDOCRINE/METABOLIC Hx Endocrine Disorders: No - HEMATOLOGICAL/ONCOLOGICAL Hx Blood Disorders: No - INTEGUMENTARY Hx Dermatological Problems: No - MUSCULOSKELETAL/RHEUMATOLOGICAL Hx Falls: No - GASTROINTESTINAL Hx Gastrointestinal Disorders: No Hx Colostomy: No Hx Crohn's Disease: No Hx Diverticulitis: No Hx Gall Bladder Disease: No Hx Gastroesophageal Reflux: No Hx Ileostomy: No Hx Liver Failure: No Hx Pancreatitis: Yes HX Swallowing Problems: Yes Hx Ulcer: No - GENITOURINARY/GYNECOLOGICAL Hx Genitourinary Disorders: No Hx Hematuria: No Hx Incontinence: No Hx Prostate Problems: No Hx Sexually Transmitted Disorders: No Hx Urinary Tract Infection: No - PSYCHIATRIC Hx Substance Use: Yes - SURGICAL HISTORY Hx Surgeries: Yes Hx Cardiac Catheterization: Yes Hx Coronary Stent: No Other/Comment: Orthoscopic sx on knee. Right arm SX. Cervical fusion - ANESTHESIA Hx Anesthesia Reactions: No Meds Allergies/Adverse Reactions: Allergies Allergy/AdvReac Type Severity Reaction Status Date / Time Penicillins Allergy RASH Verified 12/30/17 08:18 - Medications Medications: Current Medications Digoxin (Lanoxin) 0.25 mg IVP 1400 SHERRIE Midazolam 100 mg/100ml in NS (Midazolam 100 Mg/100ml In Ns) 100 mg in 100 mls @ 1 mls/hr IV .Q24H PRN; Protocol; 1 MG/HR PRN Reason: Agitation Last Titration: 12/31/17 02:30 Dose: 5 mg/hr, 5 mls/hr Levetiracetam (Keppra 500mg Ivpb) 500 mg in 100 mls @ 400 mls/hr IV Q12 SHERRIE Last Admin: 12/31/17 09:06 Dose: 400 mls/hr Levofloxacin/Dextrose (Levaquin 500mg) 500 mg in 100 mls @ 100 mls/hr IVPB DAILY SHERRIE PRN Reason: Protocol Stop: 01/08/18 16:33 Last Admin: 12/31/17 09:03 Dose: 100 mls/hr Meropenem (Merrem Iv 1 Gm Premix) 50 mls @ 100 mls/hr IVPB Q8 SHERRIE PRN Reason: Protocol Stop: 01/07/18 16:34 Last Admin: 12/31/17 05:14 Dose: 100 mls/hr NOREPINEPHRINE BIT/0.9 % NACL (Levophed 4 Mg/ 250 Ml Ns Premixed) 4 mg in 250 mls @ 15 mls/hr IV .[id number] PRN; Protocol; 4 MCG/MIN PRN Reason: TITRATE PER MD ORDER Last Titration: 12/31/17 06:45 Dose: 4 mcg/min, 15 mls/hr Multivitamins/Vitamin C 10 ml/Folic Acid 1 mg/ Thiamine HCl 100 mg/ Sodium Chloride 1,011.2 mls @ 50 mls/hr IV .[id number] [facility] Last Admin: 12/31/17 09:07 Dose: 50 mls/hr Sodium Chloride (Hypertonic Saline 3%) 500 mls @ 10 mls/hr IV .Q24H [facility] Stop: 12/31/17 23:00 Last Admin: 12/31/17 10:30 Dose: 10 mls/hr Acyclovir 750 mg/ Sodium (Chloride) 100 mls @ 100 mls/hr IV Q8 SHERRIE PRN Reason: Protocol Stop: 01/09/18 11:01 Last Admin: 12/31/17 12:23 Dose: 100 mls/hr Propofol (Diprivan) 1,000 mg in 100 mls @ 1.56 mls/hr IV .Q24H PRN; Protocol; 5 MCG/KG/MIN PRN Reason: TITRATE PER MD ORDER Last Admin: 12/31/17 12:18 Dose: 5 mcg/kg/min, 1.56 mls/hr Lorazepam (Ativan) 2 mg IVP Q6H PRN; Protocol PRN Reason: Anxiety Last Admin: 12/31/17 08:59 Dose: 2 mg Pantoprazole Sodium (Protonix Inj) 40 mg IVP DAILY [facility] Last Admin: 12/31/17 09:08 Dose: 40 mg Results - Vital Signs Recent Vital Signs: Last Vital Signs Temp 99.6 F 12/31/17 04:00 Pulse 116 H 12/31/17 06:00 Resp 106 H 12/30/17 23:49 BP 84/54 L 12/31/17 03:00 Pulse Ox 100 12/31/17 03:00 - Labs Result Diagrams: 12/31/17 07:00 12/31/17 10:30 Labs: Laboratory Results - last 24 hr 12/30/17 12/30/17 12/30/17 14:00 14:00 16:40 WBC 10.4 RBC 3.10 L Hgb 11.0 L Hct 31.2 L MCV 100.6 MCH 35.5 H MCHC 35.3 RDW 15.7 H Plt Count 276 MPV 8.6 Gran % 87.1 H Lymph % (Auto) 3.9 L [place] % (Auto) 8.9 H Eos % (Auto) 0.0 L Baso % (Auto) 0.1 Gran # 9.02 H Lymph # (Auto) 0.4 L [place] # (Auto) 0.9 H Eos # (Auto) 0.0 Baso # (Auto) 0.01 Neutrophils % (Manual) 88 H Lymphocytes % (Manual) 5 L Monocytes % (Manual) 7 H PT INR APTT pCO2 pO2 HCO3 ABG pH ABG Total CO2 ABG O2 Saturation ABG O2 Content ABG Base Excess ABG Hemoglobin ABG Carboxyhemoglobin POC ABG HHb (Measured) ABG Methemoglobin ABG O2 Capacity VBG pH VBG pCO2 VBG HCO3 VBG Total CO2 VBG O2 Sat (Calc) VBG Base Excess VBG Potassium Hgb O2 Saturation Glucose Lactate FiO2 Sodium Potassium Chloride Carbon Dioxide Anion Gap BUN Creatinine Est GFR ( Amer) Est GFR (Non-Af Amer) Random Glucose Serum Osmolality Calcium Phosphorus Magnesium Total Bilirubin AST ALT Alkaline Phosphatase Total Protein Albumin Globulin Albumin/Globulin Ratio Procalcitonin 0.23 Venous Blood Potassium Digoxin < 0.4 L HIV 1&2 Ag/Ab, 4th Gen 12/30/17 12/30/17 12/30/17 16:59 21:30 21:30 WBC RBC Hgb Hct MCV MCH MCHC RDW Plt Count MPV Gran % Lymph % (Auto) [place] % (Auto) Eos % (Auto) Baso % (Auto) Gran # Lymph # (Auto) [place] # (Auto) Eos # (Auto) Baso # (Auto) Neutrophils % (Manual) Lymphocytes % (Manual) Monocytes % (Manual) PT 15.4 H INR 1.34 H APTT pCO2 pO2 HCO3 ABG pH ABG Total CO2 ABG O2 Saturation ABG O2 Content ABG Base Excess ABG Hemoglobin ABG Carboxyhemoglobin POC ABG HHb (Measured) ABG Methemoglobin ABG O2 Capacity VBG pH VBG pCO2 VBG HCO3 VBG Total CO2 VBG O2 Sat (Calc) VBG Base Excess VBG Potassium Hgb O2 Saturation Glucose Lactate FiO2 Sodium 122 L Potassium 3.4 L Chloride 85 L Carbon Dioxide 27 Anion Gap 14 BUN < 2 L Creatinine 0.4 L Est GFR ( Amer) > 60 Est GFR (Non-Af Amer) > 60 Random Glucose 148 H Serum Osmolality Calcium 6.8 L* Phosphorus Magnesium Total Bilirubin 1.0 AST 62 H D ALT 34 Alkaline Phosphatase 121 Total Protein 5.5 L Albumin 2.6 L Globulin 2.9 Albumin/Globulin Ratio 0.9 L Procalcitonin Venous Blood Potassium Digoxin HIV 1&2 Ag/Ab, 4th Gen Nonreactive 12/30/17 12/30/17 12/31/17 22:00 22:00 02:00 WBC RBC Hgb Hct MCV MCH MCHC RDW Plt Count MPV Gran % Lymph % (Auto) [place] % (Auto) Eos % (Auto) Baso % (Auto) Gran # Lymph # (Auto) [place] # (Auto) Eos # (Auto) Baso # (Auto) Neutrophils % (Manual) Lymphocytes % (Manual) Monocytes % (Manual) PT INR APTT 37.3 H pCO2 pO2 40 HCO3 ABG pH ABG Total CO2 ABG O2 Saturation ABG O2 Content ABG Base Excess ABG Hemoglobin ABG Carboxyhemoglobin POC ABG HHb (Measured) ABG Methemoglobin ABG O2 Capacity VBG pH 7.43 VBG pCO2 47.0 VBG HCO3 31.2 H VBG Total CO2 32.6 H VBG O2 Sat (Calc) 80.1 H VBG Base Excess 5.8 H VBG Potassium 3.2 L Hgb O2 Saturation Glucose 162 H Lactate 1.5 FiO2 21.0 Sodium 123.0 L Potassium Chloride 91.0 L Carbon Dioxide Anion Gap BUN Creatinine Est GFR ( Amer) Est GFR (Non-Af Amer) Random Glucose Serum Osmolality Calcium Phosphorus Magnesium 1.1 L Total Bilirubin AST ALT Alkaline Phosphatase Total Protein Albumin Globulin Albumin/Globulin Ratio Procalcitonin Venous Blood Potassium 3.2 L Digoxin HIV 1&2 Ag/Ab, 4th Gen 12/31/17 12/31/17 12/31/17 04:00 04:20 04:26 WBC 8.3 D RBC 2.30 L Hgb 8.2 L D Hct 23.3 L MCV 101.3 MCH 35.7 H MCHC 35.2 RDW 16.0 H Plt Count 252 MPV 8.8 Gran % Lymph % (Auto) [place] % (Auto) Eos % (Auto) Baso % (Auto) Gran # Lymph # (Auto) [place] # (Auto) Eos # (Auto) Baso # (Auto) Neutrophils % (Manual) Lymphocytes % (Manual) Monocytes % (Manual) PT 14.4 H INR 1.26 H APTT 38.1 H pCO2 pO2 HCO3 ABG pH ABG Total CO2 ABG O2 Saturation ABG O2 Content ABG Base Excess ABG Hemoglobin ABG Carboxyhemoglobin POC ABG HHb (Measured) ABG Methemoglobin ABG O2 Capacity VBG pH VBG pCO2 VBG HCO3 VBG Total CO2 VBG O2 Sat (Calc) VBG Base Excess VBG Potassium Hgb O2 Saturation Glucose Lactate FiO2 Sodium 123 L Potassium 3.3 L Chloride 89 L Carbon Dioxide 29 Anion Gap 8 L BUN 2 L Creatinine 0.4 L Est GFR ( Amer) > 60 Est GFR (Non-Af Amer) > 60 Random Glucose 145 H Serum Osmolality Calcium 7.1 L Phosphorus Magnesium 2.0 Total Bilirubin 0.7 AST 48 ALT 23 Alkaline Phosphatase 111 Total Protein 4.9 L Albumin 2.2 L Globulin 2.8 Albumin/Globulin Ratio 0.8 L Procalcitonin Venous Blood Potassium Digoxin HIV 1&2 Ag/Ab, 4th Gen 12/31/17 12/31/17 12/31/17 06:50 07:00 10:30 WBC 7.9 RBC 2.27 L Hgb 8.1 L Hct 23.0 L MCV 101.3 MCH 35.7 H MCHC 35.2 RDW 16.2 H Plt Count 250 MPV 8.6 Gran % Lymph % (Auto) [place] % (Auto) Eos % (Auto) Baso % (Auto) Gran # Lymph # (Auto) [place] # (Auto) Eos # (Auto) Baso # (Auto) Neutrophils % (Manual) Lymphocytes % (Manual) Monocytes % (Manual) PT INR APTT pCO2 35 pO2 122.0 H HCO3 27.9 ABG pH 7.51 H ABG Total CO2 29.0 H ABG O2 Saturation 99.1 H ABG O2 Content 10.9 L ABG Base Excess 4.6 H ABG Hemoglobin 7.9 L ABG Carboxyhemoglobin 1.6 H POC ABG HHb (Measured) 0.9 ABG Methemoglobin 1.3 ABG O2 Capacity 11.0 L VBG pH VBG pCO2 VBG HCO3 VBG Total CO2 VBG O2 Sat (Calc) VBG Base Excess VBG Potassium Hgb O2 Saturation 96.2 Glucose Lactate FiO2 35.0 Sodium 125 L Potassium 3.4 L Chloride 90 L Carbon Dioxide 28 Anion Gap 10 BUN 3 L Creatinine 0.4 L Est GFR ( Amer) > 60 Est GFR (Non-Af Amer) > 60 Random Glucose 133 H Serum Osmolality Calcium 7.3 L Phosphorus 2.5 Magnesium Total Bilirubin AST ALT Alkaline Phosphatase Total Protein Albumin Globulin Albumin/Globulin Ratio Procalcitonin Venous Blood Potassium Digoxin HIV 1&2 Ag/Ab, 4th Gen 12/31/17 10:30 WBC RBC Hgb Hct MCV MCH MCHC RDW Plt Count MPV Gran % Lymph % (Auto) [place] % (Auto) Eos % (Auto) Baso % (Auto) Gran # Lymph # (Auto) [place] # (Auto) Eos # (Auto) Baso # (Auto) Neutrophils % (Manual) Lymphocytes % (Manual) Monocytes % (Manual) PT INR APTT pCO2 pO2 HCO3 ABG pH ABG Total CO2 ABG O2 Saturation ABG O2 Content ABG Base Excess ABG Hemoglobin ABG Carboxyhemoglobin POC ABG HHb (Measured) ABG Methemoglobin ABG O2 Capacity VBG pH VBG pCO2 VBG HCO3 VBG Total CO2 VBG O2 Sat (Calc) VBG Base Excess VBG Potassium Hgb O2 Saturation Glucose Lactate FiO2 Sodium Potassium Chloride Carbon Dioxide Anion Gap BUN Creatinine Est GFR ( Amer) Est GFR (Non-Af Amer) Random Glucose Serum Osmolality 256 L Calcium Phosphorus Magnesium Total Bilirubin AST ALT Alkaline Phosphatase Total Protein Albumin Globulin Albumin/Globulin Ratio Procalcitonin Venous Blood Potassium Digoxin HIV 1&2 Ag/Ab, 4th Gen
[2017-12-31] MEDS: Digoxin 500 mcg/2ml (0.5 mg/2ml) Inj IVP SCH (14:19)
--- NOTE | 2017-12-31 15:10 | PN ---
DATE: 12/31/2017 SUBJECTIVE: I saw Tino in the intensive care unit. He is on ventilator. He is intubated. He is very very critically ill. He has many problems. PHYSICAL EXAMINATION: GENERAL: He is not alert. He is sedated. VITAL SIGNS: He has a 99.6 temp, 116 pulse, 100% O2 sat on mechanical ventilator, 84/54 blood pressure. HEART: Regular rate. LUNGS: Decreased breath sounds. EXTREMITIES: No edema. MEDICATIONS: He is on Ativan, 3% normal saline, Keppra 500 IV every 12 hours, Levaquin, Levophed, Merrem IV, banana bag, Protonix, vancomycin IV. LABORATORY DATA: He has 7.9 white count, 8.2 hemoglobin, which drops in to 7, I will transfuse him, 23 hematocrit, 250 platelets. He had a sodium of 119, sodium is up to 123 right now, his lactate was 3.1, then it went to 3.5. He has a 123 sodium, slowly coming up, potassium is low at 3.3, he needs potassium, BUN is 2, creatinine 0.4, GFR is greater than 60, sugar is 145, he is on coverage, calcium is up to 7.1, magnesium 2, total bili is 0.7, AST is 48, ALT is 23, alkaline phosphatase is 111, now improved, total protein is 4.9. Toxicology was okay. Digoxin level is low, has been HIV is nonreactive. ASSESSMENT AND PLAN: He has multiple doctors seeing him at this time for multiple problems on the cruise ship. He has got Renal for his hyponatremia. Neurology for his persistent seizing. Pulmonary for the ventilator. Infectious Disease for his most probable infection. Cardiology for his congestive heart failure picture. He had a chest x-ray done today and it shows mild central pulmonary vascular congestion changes, fairly bilateral lower lobe infiltrates. We put him on intravenous antibiotics already. He is seizing, alcohol withdrawal. He is an alcoholic, hyponatremia, probable diabetes with elevated blood sugars and we will replace his potassium. Check his labs tomorrow. We will continue rest of treatment and care. He is a very critically ill young man. Julian West DO MTDD
[2017-12-31 15:37] LABS: BLOOD UREA NITROGEN 3 mg/dL (7-21); CALCIUM 7.4 mg/dL (8.4-10.5); GFR AFRICAN-AMERICAN > 60; GFR NON-AFRICAN AMERICAN > 60
[2017-12-31 16:05] LABS: OSMOLALITY,URINE 354 mosm/kg (300-1000)
[2017-12-31 20:24] LABS: BLOOD UREA NITROGEN 4 mg/dL (7-21); CALCIUM 7.4 mg/dL (8.4-10.5); GFR AFRICAN-AMERICAN > 60; GFR NON-AFRICAN AMERICAN > 60
[2017-12-31] MEDS ORDERED: Digoxin 500 mcg/2ml (0.5 mg/2ml) Inj IVP ONE (20:53)
[2018-01-01 00:23] LABS: BLOOD UREA NITROGEN 4 mg/dL (7-21); CALCIUM 7.5 mg/dL (8.4-10.5); GFR AFRICAN-AMERICAN > 60; GFR NON-AFRICAN AMERICAN > 60
--- NOTE | 2018-01-01 01:00 | CON ---
DATE: 12/31/2017 LOCATION: Patient in CCU 129, bed 7. This consult is being done on behalf of Dr. Bassett whom I am covering. REASON FOR CONSULTATION: Rapid heart rate, respiratory failure, seizures, history of cardiomyopathy, alcohol abuse. HISTORY OF PRESENT ILLNESS: Patient is a 52-year-old male, known case of alcohol abuse. He was told to have weak heart. He was put on digoxin with other medications, but patient stopped. The and , both were on cruise, where he drank heavy also. He usually drinks 9 cans of 16 ounce of each beer every day. Patient did not take his medicines for the last few days because he is a very poorly compliant patient and does not want to take medications. His medications were digoxin 0.25 daily, Aldactone 25 daily, Coreg 3.125 b.i.d., but he stopped all the 3 medications on his own. There is no history of chest pain or earlier shortness of breath or palpitation. Patient was on [place], started getting seizure, was taken to the [facility] and treatment was started. Then, when the ship came to [place], patient was transferred to [facility], where patient found to be in respiratory distress and patient needed intubation. Consult has been thus called because of sinus tachycardia, 140 to 150 per minute. As per his , patient has history of cardiomyopathy. His EKG is abnormal, suggesting inferior and anteroseptal SD. states that they were told before that EKG is abnormal. There is a question of scar on the EKG. PAST MEDICAL HISTORY: Positive for alcohol abuse, cardiomyopathy, seizures. He had one seizure 8 years ago while he was drinking with withdrawal. Patient has, in the past, history of hypertension, but later on he was told blood pressure is normal, history of pancreatitis, COPD. There is also history of CVA in the past. Patient is also known to have inappropriate ADH and patient often gets low sodium according to that. PERSONAL HISTORY: Denies smoking, but drinks heavy. Takes 9 cans of beer a day of 16 ounces each. Prior to getting seizures on the ship, patient did not have any cardiac complaints, chest pain, shortness of breath, or palpitation on exertion. ALLERGIES: PATIENT IS ALLERGIC TO PENICILLIN AND LORAZEPAM. MEDICATIONS: Patient was on digoxin 0.25 daily, Aldactone 25 daily, Coreg 3.125 b.i.d. FAMILY HISTORY: Not significant. PHYSICAL EXAMINATION: HEENT: Head: Normocephalic. Eyes: Pupils normal. Conjunctivae slightly pale. NECK: JVP low. Carotids equal. THORAX: AP diameter normal. LUNGS: No rales. CARDIOVASCULAR: S1 and S2. Rate around 110 per minute. ABDOMEN: Soft. No tenderness. No organomegaly. Bowel sound normal. EXTREMITIES: No clubbing. No cyanosis. LABORATORY DATA: WBC 7.9, hemoglobin 8.1, hematocrit 23, and platelets 250. Sodium on admission was 122, now it is 125; potassium is 3.4; BUN 3; creatinine 0.4; random sugar 256; calcium 6.8, but albumin is also low 2.2. Patient's EKG showed sinus tachycardia with Q in II, III, aVF suggestive of old inferior wall SD. Q in V1 to V4 suggestive of old anteroseptal SD. Chest x-ray showed basal infiltrates, more prominent on the right base. DIAGNOSES: Seizure disorder; heavy alcohol abuse; cardiomyopathy, probably nonischemic; history of chronic obstructive pulmonary disease; respiratory failure; respiratory infection, probably aspiration, probably pneumonia. PLAN: Yesterday, we gave Lopressor 5 mg IV to control the heart rate, with which heart rate came down from 150 to 110 to 106. We will digitalize the patient. He was possibly on digoxin. Patient on respirator, so we will not be able to give Coreg at this point. Patient is on Ativan IV. Patient is also on Keppra 500 mg IV every12 hour. Patient is on Protonix 40 IV daily, sodium chloride IV solution for low sodium, acyclovir 750 mg IV every 8 hours. Patient is on propofol, potassium 20 mEq IV piggyback has been already given. Patient is also on norepinephrine and meropenem IV every 8 hour, magnesium sulfate IV 2 g has been already ordered. We will repeat labs in the morning. We will follow with you. Denzel Berrios MD ZHEN
[2018-01-01 04:23] LABS: MEAN CELL VOLUME 103.2 fl (80.0-105.0); MEAN CORPUSCULAR HGB CONC 34.9 g/dl (31.0-37.0); MEAN PLATELET VOLUME 8.4 fl (7.0-11.0); RBC 2.22 10^6/uL (3.5-6.1); RED CELL DISTRIBUTION WIDTH 16.7 % (11.5-14.5); WHITE BLOOD COUNT 6.6 10^3/ul (4.5-11.0)
[2018-01-01 04:36] LABS: ALB/GLOB RATIO 0.8 (1.1-1.8); ALBUMIN 2.2 g/dL (3.0-4.8); ALT/SGPT 30 U/L (7-56); AST/SGOT 62 U/L (17-59); BLOOD UREA NITROGEN 3 mg/dL (7-21); CALCIUM 7.6 mg/dL (8.4-10.5); GFR AFRICAN-AMERICAN > 60; GFR NON-AFRICAN AMERICAN > 60
[2018-01-01] MEDS ORDERED: Magnesium Sulfate 2 GM in Sodium Chloride 0.9% 100 ML IVPB ONE ×2 (04:41→10:30)
[2018-01-01] MEDS: Meropenem IV 1 gm in NS 50 ML IVPB SCH (05:50)
[2018-01-01 06:15] LABS: ARTERIAL BLOOD GAS HEMOGLOBIN 7.2 g/dL (11.7-17.4); ARTERIAL BLOOD GAS O2 CAPACITY 9.7 mL/dl (16-24); ARTERIAL BLOOD GAS O2 CONTENT 9.8 ML/dl (15-23); ARTERIAL BLOOD GAS O2 SAT 100.6 % (95-98); ARTERIAL BLOOD GAS PCO2 38 mm/Hg (35-45); ARTERIAL BLOOD GAS PH 7.49 (7.35-7.45); ARTERIAL BLOOD GAS TCO2 30.2 mmol.L (22-28)
[2018-01-01] MEDS: Midazolam 100 mg/100ml in NS 100 MG/100 ML SOL IV PRN (07:01)
[2018-01-01] MEDS: Propofol 10 mg/ml 1,000 MG/100 ML VIAL IV PRN (07:20)
[2018-01-01 08:23] LABS: HEPATITIS B SURFACE AG Negative (NEGATIVE)
[2018-01-01 08:29] LABS: HEPATITIS A IGM NEGATIVE (NEGATIVE); HEPATITIS B CORE AB NEGATIVE (NEGATIVE)
[2018-01-01 08:40] LABS: HEPATITIS C ANTIBODY NEGATIVE (NEGATIVE)
--- NOTE | 2018-01-01 09:40 | RAD ---
HISTORY: intubation COMPARISON: No prior. FINDINGS: In situ ETT, tip of which lies approximately 7 cm above flor. No change right IJ central venous line with tip in the SVC. Interval placement right sided subclavian line along with tip in the SVC LUNGS: No active pulmonary disease. PLEURA: No significant pleural effusion identified, no pneumothorax apparent. CARDIOVASCULAR: Normal. OSSEOUS STRUCTURES: No significant abnormalities. VISUALIZED UPPER ABDOMEN: Normal. OTHER FINDINGS: None. IMPRESSION: Support lines and tubes as above. No active disease.
[2018-01-01] MEDS: levETIRAcetam 500mg IVPB 500 MG/100 ML BAG IV SCH (09:41)
[2018-01-01] MEDS: Multivitamin (MVI) 10 ML, Folic Acid 1 MG, Thiamine 100 MG in Sodium Chloride 0.9% 1,00... IV SCH (09:43)
--- NOTE | 2018-01-01 10:22 | CP.CCUPN ---
<Hood Mathews - Last Filed: 01/01/18 11:49> CCU Subjective - Physician Review Subjective (Free Text): 01/01/18 11:49 Patient seen and examined at bedside in ICU. Remains sedated and intubated. Will stop sedation for sedation-vacation, then will attempt pressure-support trial to assess for viability to wean off ventilator. No active seizure like- activity appreciated at time of initial exam, but when on sedation vacation, started having diffuse twitching L>R, concerning for possible DTs vs seizure. CCU Objective - Vital Signs / Intake & Output Vital Signs (Last 4 hours): Vital Signs Temp Pulse Resp BP Pulse Ox 01/01/18 08:27 98 H 16 98 01/01/18 08:26 98 H 17 98 01/01/18 08:25 96 H 16 99 01/01/18 08:24 96 H 16 99 01/01/18 08:23 96 H 18 99 01/01/18 08:22 98 H 16 99 01/01/18 08:21 103 H 15 99 01/01/18 08:20 95 H 16 99 01/01/18 08:19 96 H 16 99 01/01/18 08:18 95 H 17 99 01/01/18 08:17 102 H 15 99 01/01/18 08:16 98 H 17 99 01/01/18 08:15 96 H 15 100 01/01/18 08:14 97 H 15 100 01/01/18 08:13 93 H 16 100 01/01/18 08:12 96 H 15 100 01/01/18 08:11 95 H 15 100 01/01/18 08:10 95 H 16 100 01/01/18 08:09 95 H 15 100 01/01/18 08:08 105 H 20 100 01/01/18 08:07 98 H 17 100 01/01/18 08:06 101 H 16 100 01/01/18 08:05 104 H 18 100 01/01/18 08:04 108 H 15 100 01/01/18 08:03 107 H 24 100 01/01/18 08:02 107 H 22 100 01/01/18 08:01 96 H 26 H 99 01/01/18 08:00 97.8 F 129/79 01/01/18 07:59 99 H 15 99 01/01/18 07:58 94 H 15 99 05/28/18 07:57 98 H 15 01/01/18 07:56 93 H 15 01/01/18 07:55 95 H 15 01/01/18 07:54 98 H 15 01/01/18 07:53 101 H 15 01/01/18 07:52 94 H 15 01/01/18 07:51 95 H 15 01/01/18 07:50 98 H 15 01/01/18 07:49 94 H 15 01/01/18 07:48 91 H 15 01/01/18 07:47 92 H 15 01/01/18 07:46 88 15 01/01/18 07:45 89 15 01/01/18 07:44 88 15 01/01/18 07:43 89 15 01/01/18 07:42 88 15 01/01/18 07:41 88 15 01/01/18 07:40 89 15 01/01/18 07:39 89 15 01/01/18 07:38 89 15 100 Intake and Output (Last 8hrs): Intake & Output 12/31/17 01/01/18 01/01/18 22:59 06:59 14:59 Intake Total 1915 1440 160 Output Total 600 1100 Balance 1315 340 160 Weight 52.305 kg Intake: IV 1915 840 160 Right Internal Jugular 1700 755 Oral 0 Other 600 Output: Urine 600 1100 Urethral (Terrell) 600 1100 Emesis 0 Other: # Bowel Movements 0 0 - Physical Exam Physical Exam Limitations: Positive for: Altered Mental Status Head: Positive for: Atraumatic, Normocephalic Pupils: Positive for: Other (left slighly enlarged pupil vs left b/l reactive). Negative for: Non-Reactive, Pinpoint Extroacular Muscles: Positive for: Other (not following commands to assess, but lateral movement and jerks of eyes (in time with global twitches)). Negative for: EOMI Conjunctiva: Positive for: Normal. Negative for: Injected, Icteric Mouth: Positive for: Moist Mucous Membranes, Other (ETT in place) Nose (External): Positive for: Atraumatic. Negative for: Abrasion, Laceration, Lesions Nose (Internal): Positive for: Normal Inspection, No Active Bleeding. Negative for: Epistaxis Neck: Positive for: Other (sedated/AMS, no appreciate spontaneous movement of neck appreciated, but passive ROM intact, no rigidity or abnormal barriers to movement appreciated) Respiratory/Chest: Positive for: Clear to Auscultation, Good Air Exchange, Other (on ventilator, then on pressure support, tolerating well). Negative for : Respiratory Distress, Accessory Muscle Use, Wheezes, Rales, Retracting, Rhonchi Cardiovascular: Positive for: Regular Rate and Rhythm, Normal S1, S2, Peripheal Pulses Present (+1-2 radial and dorsalis pedis bilaterally). Negative for: Murmurs, Irregular Rhythm, Tachycardic, Bradycardic Abdomen: Positive for: Normal Bowel Sounds, Other (unable to assess tenderness due to sedation/AMS, but no gross reaction or guarding on palpation). Negative for: Distention, Peritoneal Signs, Rebound, Feeding Tubes, Mass/Organomegaly Upper Extremity: Positive for: Normal Inspection, NORMAL PULSES, Other (unable to fully assess ROM due to restraints). Negative for: Cyanosis, Edema, Swelling , Erythema, Deformity Lower Extremity: Positive for: Normal Inspection, NORMAL PULSES. Negative for: Edema, Cyanosis, Tenderness, Swelling, Erythema, Deformity Neurological: Positive for: Other (sedated/AMS, minimal spontaneous movements appreciated, but gross twitches (L>R) appreciated intermittently). Negative for : GCS=15 (GCS 7 (E2 V1t M4)) Skin: Positive for: Warm, Dry, Normal Color. Negative for: Rashes Psychiatric: Positive for: Other (Sedated/AMS, intubated, so unable to assess) - Medications Active Medications: Active Medications Generic Name Dose Route Start Last Admin Trade Name Freq PRN Reason Stop Dose Admin Digoxin 0.25 mg 12/31/17 14:00 12/31/17 14:19 Lanoxin IVP 0.25 mg 1400 SHERRIE Administration Midazolam 100 mg/100ml in NS 100 mg in 100 mls @ 1 mls/hr 12/30/17 12:28 07:01 Midazolam 100 Mg/100ml In Ns IV 7 mg/hr .Q24H PRN 7 mls/hr Agitation Administration Protocol 1 MG/HR Levetiracetam 500 mg in 100 mls @ 400 mls/hr 12/30/17 22:00 05/28/18 09:41 Keppra 500mg Ivpb IV 400 mls/hr Q12 SHERRIE Administration NOREPINEPHRINE BIT/0.9 % NACL 4 mg in 250 mls @ 15 mls/hr 12/30/17 23:18 00:00 Levophed 4 Mg/ 250 Ml Ns Premixed IV 0 mcg/min .[id number] PRN 0 mls/hr TITRATE PER MD ORDER Titration Protocol 4 MCG/MIN Multivitamins/Vitamin C 10 ml/ 1,011.2 mls @ 50 mls/hr 12/31/17 03:17 09:43 Folic Acid 1 mg/ Thiamine HCl IV 50 mls/hr 100 mg/ Sodium Chloride .[id number] SHERRIE Administration Acyclovir 750 mg/ Sodium 100 mls @ 100 mls/hr 12/31/17 11:00 01/01/18 06:05 Chloride IV 01/09/18 11:01 100 mls/hr Q8 SHERRIE Administration Protocol Propofol 1,000 mg in 100 mls @ 1.56 mls/hr 12/31/17 11:53 01/01/18 07:20 Diprivan IV 5 mcg/kg/min .Q24H PRN 1.56 mls/hr TITRATE PER MD ORDER Administration Protocol 5 MCG/KG/MIN Potassium Chloride 10 meq in 100 mls @ 50 mls/hr 01/01/18 08:30 01/01/18 08: 34 Potassium Chloride 10 Meq/100 Ml IVPB 01/01/18 14:29 50 mls/hr Q2H SHERRIE Administration Sodium Chloride 1,000 mls @ 100 mls/hr 01/01/18 10:00 Sodium Chloride 0.9% IV .Q10H SHERRIE Lorazepam 2 mg 12/31/17 08:28 01/01/18 10:16 Ativan IVP 2 mg Q6H PRN Administration Anxiety Protocol Pantoprazole Sodium 40 mg 12/31/17 10:00 01/01/18 09:44 Protonix Inj IVP 40 mg DAILY SHERRIE Administration - Patient Studies Lab Studies: Microbiology Studies 12/30/17 18:20 Gram Stain - Final Sputum Induced Sputum Culture - Preliminary No growth. 12/30/17 13:05 MRSA Culture (Admit) - Final Naris MRSA NOT DETECTED Lab Studies 01/01/18 01/01/18 01/01/18 Range/Units 06:00 04:15 04:15 WBC 6.6 (4.5-11.0) 10^3/ul RBC 2.22 L (3.5-6.1) 10^6/uL Hgb 8.0 L (14.0-18.0) g/dL Hct 22.9 L (42.0-52.0) % MCV 103.2 (80.0-105.0) fl MCH 36.0 H (25.0-35.0) pg MCHC 34.9 (31.0-37.0) g/dl RDW 16.7 H (11.5-14.5) % Plt Count 247 (120.0-450.0) 10^3/uL MPV 8.4 (7.0-11.0) fl pCO2 38 (35-45) mm/Hg pO2 58.0 L (80-100) mm/Hg HCO3 29.0 H (21-28) mmol/L ABG pH 7.49 H (7.35-7.45) ABG Total CO2 30.2 H (22-28) mmol.L ABG O2 Saturation 100.6 H (95-98) % ABG O2 Content 9.8 L (15-23) ML/dl ABG Base Excess 5.2 H (-2.0-3.0) mmol/L ABG Hemoglobin 7.2 L (11.7-17.4) g/dL ABG Carboxyhemoglobin 3.7 H (0.5-1.5) % POC ABG HHb (Measured) -0.6 L (0-5) % ABG Methemoglobin 1.0 (0.0-3.0) % ABG O2 Capacity 9.7 L (16-24) mL/dl Hgb O2 Saturation 96.0 (95.0-98.0) % FiO2 35.0 % Sodium 132 (132-148) mmol/L Potassium 3.3 L (3.6-5.0) mmol/L Chloride 96 L (98-107) mmol/L Carbon Dioxide 30 (21-33) mmol/L Anion Gap 9 L (10-20) BUN 3 L (7-21) mg/dL Creatinine 0.5 L (0.8-1.5) mg/dl Est GFR ( Amer) > 60 Est GFR (Non-Af Amer) > 60 Random Glucose 87 (70-110) mg/dL Serum Osmolality (272-300) mosm/kg Calcium 7.6 L (8.4-10.5) mg/dL Phosphorus (2.5-4.5) mg/dL Magnesium 1.4 L (1.7-2.2) mg/dL Total Bilirubin 0.9 (0.2-1.3) mg/dL AST 62 H D (17-59) U/L ALT 30 (7-56) U/L Alkaline Phosphatase 160 H D (38-126) U/L Total Protein 4.9 L (5.8-8.3) g/dL Albumin 2.2 L (3.0-4.8) g/dL Globulin 2.7 gm/dL Albumin/Globulin Ratio 0.8 L (1.1-1.8) Urine Osmolality (300-1000) mosm/kg Ur Random Sodium meq/L Hepatitis A IgM Ab (NEGATIVE) Hep Bs Antigen (NEGATIVE) Hep B Core IgM Ab (NEGATIVE) Hepatitis C Antibody (NEGATIVE) Ur L.pneumophila Ag (NEGATIVE) 01/01/18 12/31/17 12/31/17 Range/Units 00:00 19:59 15:15 WBC (4.5-11.0) 10^3/ul RBC (3.5-6.1) 10^6/uL Hgb (14.0-18.0) g/dL Hct (42.0-52.0) % MCV (80.0-105.0) fl MCH (25.0-35.0) pg MCHC (31.0-37.0) g/dl RDW (11.5-14.5) % Plt Count (120.0-450.0) 10^3/uL MPV (7.0-11.0) fl pCO2 (35-45) mm/Hg pO2 (80-100) mm/Hg HCO3 (21-28) mmol/L ABG pH (7.35-7.45) ABG Total CO2 (22-28) mmol.L ABG O2 Saturation (95-98) % ABG O2 Content (15-23) ML/dl ABG Base Excess (-2.0-3.0) mmol/L ABG Hemoglobin (11.7-17.4) g/dL ABG Carboxyhemoglobin (0.5-1.5) % POC ABG HHb (Measured) (0-5) % ABG Methemoglobin (0.0-3.0) % ABG O2 Capacity (16-24) mL/dl Hgb O2 Saturation (95.0-98.0) % FiO2 % Sodium 130 L 128 L 127 L (132-148) mmol/L Potassium 3.1 L 3.4 L 3.2 L (3.6-5.0) mmol/L Chloride 95 L 93 L 92 L (98-107) mmol/L Carbon Dioxide 30 29 30 (21-33) mmol/L Anion Gap 8 L 10 9 L (10-20) BUN 4 L 4 L 3 L (7-21) mg/dL Creatinine 0.5 L 0.5 L 0.5 L (0.8-1.5) mg/dl Est GFR ( Amer) > 60 > 60 > 60 Est GFR (Non-Af Amer) > 60 > 60 > 60 Random Glucose 109 110 110 (70-110) mg/dL Serum Osmolality (272-300) mosm/kg Calcium 7.5 L 7.4 L 7.4 L (8.4-10.5) mg/dL Phosphorus (2.5-4.5) mg/dL Magnesium (1.7-2.2) mg/dL Total Bilirubin (0.2-1.3) mg/dL AST (17-59) U/L ALT (7-56) U/L Alkaline Phosphatase (38-126) U/L Total Protein (5.8-8.3) g/dL Albumin (3.0-4.8) g/dL Globulin gm/dL Albumin/Globulin Ratio (1.1-1.8) Urine Osmolality (300-1000) mosm/kg Ur Random Sodium meq/L Hepatitis A IgM Ab (NEGATIVE) Hep Bs Antigen (NEGATIVE) Hep B Core IgM Ab (NEGATIVE) Hepatitis C Antibody (NEGATIVE) Ur L.pneumophila Ag (NEGATIVE) 12/31/17 12/31/17 12/31/17 Range/Units 15:00 10:30 10:30 WBC (4.5-11.0) 10^3/ul RBC (3.5-6.1) 10^6/uL Hgb (14.0-18.0) g/dL Hct (42.0-52.0) % MCV (80.0-105.0) fl MCH (25.0-35.0) pg MCHC (31.0-37.0) g/dl RDW (11.5-14.5) % Plt Count (120.0-450.0) 10^3/uL MPV (7.0-11.0) fl pCO2 (35-45) mm/Hg pO2 (80-100) mm/Hg HCO3 (21-28) mmol/L ABG pH (7.35-7.45) ABG Total CO2 (22-28) mmol.L ABG O2 Saturation (95-98) % ABG O2 Content (15-23) ML/dl ABG Base Excess (-2.0-3.0) mmol/L ABG Hemoglobin (11.7-17.4) g/dL ABG Carboxyhemoglobin (0.5-1.5) % POC ABG HHb (Measured) (0-5) % ABG Methemoglobin (0.0-3.0) % ABG O2 Capacity (16-24) mL/dl Hgb O2 Saturation (95.0-98.0) % FiO2 % Sodium 125 L (132-148) mmol/L Potassium 3.4 L (3.6-5.0) mmol/L Chloride 90 L (98-107) mmol/L Carbon Dioxide 28 (21-33) mmol/L Anion Gap 10 (10-20) BUN 3 L (7-21) mg/dL Creatinine 0.4 L (0.8-1.5) mg/dl Est GFR ( Amer) > 60 Est GFR (Non-Af Amer) > 60 Random Glucose 133 H (70-110) mg/dL Serum Osmolality 256 L (272-300) mosm/kg Calcium 7.3 L (8.4-10.5) mg/dL Phosphorus 2.5 (2.5-4.5) mg/dL Magnesium (1.7-2.2) mg/dL Total Bilirubin (0.2-1.3) mg/dL AST (17-59) U/L ALT (7-56) U/L Alkaline Phosphatase (38-126) U/L Total Protein (5.8-8.3) g/dL Albumin (3.0-4.8) g/dL Globulin gm/dL Albumin/Globulin Ratio (1.1-1.8) Urine Osmolality 354 (300-1000) mosm/kg Ur Random Sodium 64 meq/L Hepatitis A IgM Ab (NEGATIVE) Hep Bs Antigen (NEGATIVE) Hep B Core IgM Ab (NEGATIVE) Hepatitis C Antibody (NEGATIVE) Ur L.pneumophila Ag (NEGATIVE) 12/30/17 12/30/17 Range/Units 18:20 16:40 WBC (4.5-11.0) 10^3/ul RBC (3.5-6.1) 10^6/uL Hgb (14.0-18.0) g/dL Hct (42.0-52.0) % MCV (80.0-105.0) fl MCH (25.0-35.0) pg MCHC (31.0-37.0) g/dl RDW (11.5-14.5) % Plt Count (120.0-450.0) 10^3/uL MPV (7.0-11.0) fl pCO2 (35-45) mm/Hg pO2 (80-100) mm/Hg HCO3 (21-28) mmol/L ABG pH (7.35-7.45) ABG Total CO2 (22-28) mmol.L ABG O2 Saturation (95-98) % ABG O2 Content (15-23) ML/dl ABG Base Excess (-2.0-3.0) mmol/L ABG Hemoglobin (11.7-17.4) g/dL ABG Carboxyhemoglobin (0.5-1.5) % POC ABG HHb (Measured) (0-5) % ABG Methemoglobin (0.0-3.0) % ABG O2 Capacity (16-24) mL/dl Hgb O2 Saturation (95.0-98.0) % FiO2 % Sodium (132-148) mmol/L Potassium (3.6-5.0) mmol/L Chloride (98-107) mmol/L Carbon Dioxide (21-33) mmol/L Anion Gap (10-20) BUN (7-21) mg/dL Creatinine (0.8-1.5) mg/dl Est GFR ( Amer) Est GFR (Non-Af Amer) Random Glucose (70-110) mg/dL Serum Osmolality (272-300) mosm/kg Calcium (8.4-10.5) mg/dL Phosphorus (2.5-4.5) mg/dL Magnesium (1.7-2.2) mg/dL Total Bilirubin (0.2-1.3) mg/dL AST (17-59) U/L ALT (7-56) U/L Alkaline Phosphatase (38-126) U/L Total Protein (5.8-8.3) g/dL Albumin (3.0-4.8) g/dL Globulin gm/dL Albumin/Globulin Ratio (1.1-1.8) Urine Osmolality (300-1000) mosm/kg Ur Random Sodium meq/L Hepatitis A IgM Ab Negative (NEGATIVE) Hep Bs Antigen Negative (NEGATIVE) Hep B Core IgM Ab Negative (NEGATIVE) Hepatitis C Antibody Negative (NEGATIVE) Ur L.pneumophila Ag Negative (NEGATIVE) Laboratory Results - last 24 hr 12/30/17 12/30/17 12/31/17 16:40 18:20 10:30 WBC RBC Hgb Hct MCV MCH MCHC RDW Plt Count MPV pCO2 pO2 HCO3 ABG pH ABG Total CO2 ABG O2 Saturation ABG O2 Content ABG Base Excess ABG Hemoglobin ABG Carboxyhemoglobin POC ABG HHb (Measured) ABG Methemoglobin ABG O2 Capacity Hgb O2 Saturation FiO2 Sodium 125 L Potassium 3.4 L Chloride 90 L Carbon Dioxide 28 Anion Gap 10 BUN 3 L Creatinine 0.4 L Est GFR ( Amer) > 60 Est GFR (Non-Af Amer) > 60 Random Glucose 133 H Serum Osmolality Calcium 7.3 L Phosphorus 2.5 Magnesium Total Bilirubin AST ALT Alkaline Phosphatase Total Protein Albumin Globulin Albumin/Globulin Ratio Urine Osmolality Ur Random Sodium Hepatitis A IgM Ab Negative Hep Bs Antigen Negative Hep B Core IgM Ab Negative Hepatitis C Antibody Negative Ur L.pneumophila Ag Negative 12/31/17 12/31/17 12/31/17 10:30 15:00 15:15 WBC RBC Hgb Hct MCV MCH MCHC RDW Plt Count MPV pCO2 pO2 HCO3 ABG pH ABG Total CO2 ABG O2 Saturation ABG O2 Content ABG Base Excess ABG Hemoglobin ABG Carboxyhemoglobin POC ABG HHb (Measured) ABG Methemoglobin ABG O2 Capacity Hgb O2 Saturation FiO2 Sodium 127 L Potassium 3.2 L Chloride 92 L Carbon Dioxide 30 Anion Gap 9 L BUN 3 L Creatinine 0.5 L Est GFR ( Amer) > 60 Est GFR (Non-Af Amer) > 60 Random Glucose 110 Serum Osmolality 256 L Calcium 7.4 L Phosphorus Magnesium Total Bilirubin AST ALT Alkaline Phosphatase Total Protein Albumin Globulin Albumin/Globulin Ratio Urine Osmolality 354 Ur Random Sodium 64 Hepatitis A IgM Ab Hep Bs Antigen Hep B Core IgM Ab Hepatitis C Antibody Ur L.pneumophila Ag 12/31/17 01/01/18 01/01/18 19:59 00:00 04:15 WBC RBC Hgb Hct MCV MCH MCHC RDW Plt Count MPV pCO2 pO2 HCO3 ABG pH ABG Total CO2 ABG O2 Saturation ABG O2 Content ABG Base Excess ABG Hemoglobin ABG Carboxyhemoglobin POC ABG HHb (Measured) ABG Methemoglobin ABG O2 Capacity Hgb O2 Saturation FiO2 Sodium 128 L 130 L 132 Potassium 3.4 L 3.1 L 3.3 L Chloride 93 L 95 L 96 L Carbon Dioxide 29 30 30 Anion Gap 10 8 L 9 L BUN 4 L 4 L 3 L Creatinine 0.5 L 0.5 L 0.5 L Est GFR ( Amer) > 60 > 60 > 60 Est GFR (Non-Af Amer) > 60 > 60 > 60 Random Glucose 110 109 87 Serum Osmolality Calcium 7.4 L 7.5 L 7.6 L Phosphorus Magnesium 1.4 L Total Bilirubin 0.9 AST 62 H D ALT 30 Alkaline Phosphatase 160 H D Total Protein 4.9 L Albumin 2.2 L Globulin 2.7 Albumin/Globulin Ratio 0.8 L Urine Osmolality Ur Random Sodium Hepatitis A IgM Ab Hep Bs Antigen Hep B Core IgM Ab Hepatitis C Antibody Ur L.pneumophila Ag 01/01/18 01/01/18 04:15 06:00 WBC 6.6 RBC 2.22 L Hgb 8.0 L Hct 22.9 L MCV 103.2 MCH 36.0 H MCHC 34.9 RDW 16.7 H Plt Count 247 MPV 8.4 pCO2 38 pO2 58.0 L HCO3 29.0 H ABG pH 7.49 H ABG Total CO2 30.2 H ABG O2 Saturation 100.6 H ABG O2 Content 9.8 L ABG Base Excess 5.2 H ABG Hemoglobin 7.2 L ABG Carboxyhemoglobin 3.7 H POC ABG HHb (Measured) -0.6 L ABG Methemoglobin 1.0 ABG O2 Capacity 9.7 L Hgb O2 Saturation 96.0 FiO2 35.0 Sodium Potassium Chloride Carbon Dioxide Anion Gap BUN Creatinine Est GFR ( Amer) Est GFR (Non-Af Amer) Random Glucose Serum Osmolality Calcium Phosphorus Magnesium Total Bilirubin AST ALT Alkaline Phosphatase Total Protein Albumin Globulin Albumin/Globulin Ratio Urine Osmolality Ur Random Sodium Hepatitis A IgM Ab Hep Bs Antigen Hep B Core IgM Ab Hepatitis C Antibody Ur L.pneumophila Ag Review of Systems - Review of Systems Systems not reviewed;Unavailable: Intubated Critical Care Progress Note - Nutrition Nutrition: Nutrition Category Date Time Status NPO Diet [DIET] Diets 12/30/17 Dinner Ordered Assessment/Plan - Assessment and Plan (Free Text) Assessment: This is a 52 yo M with 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 Patient was intubated for airway protection and sedated, and is now on sedation vacation and pressure support to assess viability of extubation today. Due to his frequent twitching after sedation withdrawal, concerning for DTs, he was started on Precedex drip and his Ativan was increased. Plan: Neuro: -previously sedation on Propofol/Versed, then on sedation vacation for pressure support trial, now started on Precedex drip -maintain normothermia -empircally covered with Acyclovir as per ID, ID to discuss with Neuro possibility of needing spinal tap -Neuro following, appreciate all recs; likely severe DTs from alcohol withdrawal , MRI brain ordered, increased Keppra to 750mg IV q12 -Ativan increased to 1q3 IV sherrie and 2q4 IV prn Cardio: -hx CAD and cardiomyopathy with EF 25% -cardiomyopathy likely 2/2 chronic alcohol abuse -Cardio following, appreciate all recs; started on digoxin, echo ordered, repleting Mag/K Pulm: -intubated and sedated, now on sedation vacation and pressure support trial (40% /5 PEEP/10 PS), tolerating well with SBI consistently < 50 -ABG this AM reviewed -CXR this AM reviewed, will advance ETT 3 cm -if tolerated PS and wakes up further from sedation, may be able to extubate, will monitor and f/u -continue PRN suction due to secretions -maintain SaO2 > 90% and paO2 > 60 -VAP bundle, aspiration precautions -Pulm following, appreciate all recs GI: -NPO due to intubation -Protonix for GI ppx Renal: -making good urine output -monitor and replete electrolytes as needed -Cr stable at 0.5 -Hx SIADH noncompliant with salt tab therapy; Na improved from 120 on admit to 132 this AM (over 48 hrs) -Nephro consulted, appreciate all recs Heme: -no signs of acute bleeding -no AC due to risk of bleed, SCDs for DVT ppx -Hgb stable at 8.0 (was 8.1) ID: -no leukocytosis and afebrile -empirically on acyclovir as per ID -as per ID, if continues to seize, will discuss with Neuro possibility of needing spinal tap Dispo: In ICU, intubated, on sedation vacation and pressure support trial to assess viability of possible extubation; started on Precedex and increased Keppra and Ativan for likely severe DTs vs seizure activity 2/2 alcohol abuse and withdrawal FEN: NPO; Banana Bag 50cc/hr, NS 100cc/hr, Mag/K supplements as needed Access: peripheral IVs, TLC Consults: Neuro, Cardio, ID, Nephro, Pulm Ppx: Protonix for GI, SCDs for DVT Patient seen, reviewed, and discussed with Attending, Dr. Riley <Steve Riley - Last Filed: 01/01/18 12:35> CCU Objective - Vital Signs / Intake & Output Vital Signs (Last 4 hours): Vital Signs Pulse Resp BP Pulse Ox 01/01/18 11:02 102 H 18 100 01/01/18 11:01 143/86 01/01/18 11:00 108 H 17 100 01/01/18 10:59 111 H 21 100 01/01/18 10:58 107 H 19 100 01/01/18 10:57 111 H 29 H 98 01/01/18 10:56 109 H 26 H 100 01/01/18 10:55 111 H 37 H 100 01/01/18 10:54 109 H 26 H 100 01/01/18 10:53 113 H 40 H 100 01/01/18 10:52 110 H 30 H 100 0518 10:51 111 H 27 H 99 05//18 10:50 111 H 46 H 99 05 10:49 114 H 31 H 99 01/01/18 10:48 111 H 22 98 01/01/18 10:47 116 H 14 97 01/01/18 10:46 114 H 90 L 01/01/18 10:45 106 H 21 89 L 01/01/18 10:44 101 H 21 91 L 01/01/18 10:43 102 H 24 94 L 01/01/18 10:42 105 H 25 H 95 01/01/18 10:41 103 H 17 94 L 01/01/18 10:40 104 H 20 94 L 01/01/18 10:39 104 H 22 95 01/01/18 10:38 102 H 19 94 L 01/01/18 10:37 108 H 27 H 92 L 01/01/18 10:36 104 H 22 95 01/01/18 10:35 107 H 17 96 01/01/18 10:34 110 H 20 96 01/01/18 10:33 107 H 27 H 97 01/01/18 10:32 104 H 22 98 01/01/18 10:31 106 H 21 99 01/01/18 10:30 99 H 25 H 100 0518 10:29 105 H 20 100 05 10:28 99 H 19 100 01/01/18 10:27 105 H 23 100 05 10:26 101 H 19 100 18 10:25 101 H 19 100 01/01/18 10:24 99 H 17 100 05 10:23 104 H 21 100 0518 10:22 103 H 22 100 0518 10:21 96 H 19 100 05/18 10:20 102 H 31 H 100 0518 10:19 112 H 18 100 0518 10:18 105 H 28 H 100 0518 10:17 103 H 36 H 100 0518 10:16 99 H 19 100 0518 10:15 105 H 16 100 0518 10:14 105 H 16 100 0518 10:13 103 H 18 100 Intake and Output (Last 8hrs): Intake & Output 12/31/17 01/01/18 01/01/18 22:59 06:59 14:59 Intake Total 1915 1440 160 Output Total 600 1100 Balance 1315 340 160 Weight 115 lb 5 oz Intake: IV 1915 840 160 Right Internal Jugular 1700 755 Oral 0 Other 600 Output: Urine 600 1100 Urethral (Terrell) 600 1100 Emesis 0 Other: # Bowel Movements 0 0 - Medications Active Medications: Active Medications Generic Name Dose Route Start Last Admin Trade Name Freq PRN Reason Stop Dose Admin Digoxin 0.25 mg 12/31/17 14:00 12/31/17 14:19 Lanoxin IVP 0.25 mg 1400 SHERRIE Administration Midazolam 100 mg/100ml in NS 100 mg in 100 mls @ 1 mls/hr 12/30/17 12:28 07:01 Midazolam 100 Mg/100ml In Ns IV 7 mg/hr .Q24H PRN 7 mls/hr Agitation Administration Protocol 1 MG/HR NOREPINEPHRINE BIT/0.9 % NACL 4 mg in 250 mls @ 15 mls/hr 12/30/17 23:18 00:00 Levophed 4 Mg/ 250 Ml Ns Premixed IV 0 mcg/min .[id number] PRN 0 mls/hr TITRATE PER MD ORDER Titration Protocol 4 MCG/MIN Multivitamins/Vitamin C 10 ml/ 1,011.2 mls @ 50 mls/hr 12/31/17 03:17 09:43 Folic Acid 1 mg/ Thiamine HCl IV 50 mls/hr 100 mg/ Sodium Chloride .[id number] SHERRIE Administration Acyclovir 750 mg/ Sodium 100 mls @ 100 mls/hr 12/31/17 11:00 01/01/18 06:05 Chloride IV 01/09/18 11:01 100 mls/hr Q8 SHERRIE Administration Protocol Propofol 1,000 mg in 100 mls @ 1.56 mls/hr 12/31/17 11:53 01/01/18 07:20 Diprivan IV 5 mcg/kg/min .Q24H PRN 1.56 mls/hr TITRATE PER MD ORDER Administration Protocol 5 MCG/KG/MIN Potassium Chloride 10 meq in 100 mls @ 50 mls/hr 01/01/18 08:30 01/01/18 10: 21 Potassium Chloride 10 Meq/100 Ml IVPB 01/01/18 14:29 50 mls/hr Q2H SHERRIE Administration Sodium Chloride 1,000 mls @ 100 mls/hr 01/01/18 10:00 01/01/18 10:31 Sodium Chloride 0.9% IV 100 mls/hr .Q10H SHERRIE Administration Dexmedetomidine HCl 400 mcg in 100 mls @ 2.615 mls/hr 01/01/18 11:24 11:41 Precedex 400mcg/100ml IV 0.2 mcg/kg/hr .Q24H PRN 2.615 mls/hr Delirium Tremens Administration Protocol 0.2 MCG/KG/HR Levetiracetam 750 mg/ Sodium 107.5 mls @ 460 mls/hr 01/01/18 22:00 Chloride IV Q12 SHERRIE Lorazepam 1 mg 01/01/18 11:30 01/01/18 11:43 Ativan IVP 1 mg Q3H SHERRIE Administration Protocol Lorazepam 2 mg 01/01/18 11:25 Ativan IVP Q4H PRN Anxiety Protocol Pantoprazole Sodium 40 mg 12/31/17 10:00 01/01/18 09:44 Protonix Inj IVP 40 mg DAILY SHERRIE Administration - Patient Studies Lab Studies: Microbiology Studies 12/30/17 18:20 Gram Stain - Final Sputum Induced Sputum Culture - Preliminary No growth. 12/30/17 13:05 MRSA Culture (Admit) - Final Naris MRSA NOT DETECTED Lab Studies 01/01/18 01/01/18 01/01/18 Range/Units 06:00 04:15 04:15 WBC 6.6 (4.5-11.0) 10^3/ul RBC 2.22 L (3.5-6.1) 10^6/uL Hgb 8.0 L (14.0-18.0) g/dL Hct 22.9 L (42.0-52.0) % MCV 103.2 (80.0-105.0) fl MCH 36.0 H (25.0-35.0) pg MCHC 34.9 (31.0-37.0) g/dl RDW 16.7 H (11.5-14.5) % Plt Count 247 (120.0-450.0) 10^3/uL MPV 8.4 (7.0-11.0) fl pCO2 38 (35-45) mm/Hg pO2 58.0 L (80-100) mm/Hg HCO3 29.0 H (21-28) mmol/L ABG pH 7.49 H (7.35-7.45) ABG Total CO2 30.2 H (22-28) mmol.L ABG O2 Saturation 100.6 H (95-98) % ABG O2 Content 9.8 L (15-23) ML/dl ABG Base Excess 5.2 H (-2.0-3.0) mmol/L ABG Hemoglobin 7.2 L (11.7-17.4) g/dL ABG Carboxyhemoglobin 3.7 H (0.5-1.5) % POC ABG HHb (Measured) -0.6 L (0-5) % ABG Methemoglobin 1.0 (0.0-3.0) % ABG O2 Capacity 9.7 L (16-24) mL/dl Hgb O2 Saturation 96.0 (95.0-98.0) % FiO2 35.0 % Sodium 132 (132-148) mmol/L Potassium 3.3 L (3.6-5.0) mmol/L Chloride 96 L (98-107) mmol/L Carbon Dioxide 30 (21-33) mmol/L Anion Gap 9 L (10-20) BUN 3 L (7-21) mg/dL Creatinine 0.5 L (0.8-1.5) mg/dl Est GFR ( Amer) > 60 Est GFR (Non-Af Amer) > 60 Random Glucose 87 (70-110) mg/dL Calcium 7.6 L (8.4-10.5) mg/dL Magnesium 1.4 L (1.7-2.2) mg/dL Total Bilirubin 0.9 (0.2-1.3) mg/dL AST 62 H D (17-59) U/L ALT 30 (7-56) U/L Alkaline Phosphatase 160 H D (38-126) U/L Total Protein 4.9 L (5.8-8.3) g/dL Albumin 2.2 L (3.0-4.8) g/dL Globulin 2.7 gm/dL Albumin/Globulin Ratio 0.8 L (1.1-1.8) Urine Osmolality (300-1000) mosm/kg Ur Random Sodium meq/L Hepatitis A IgM Ab (NEGATIVE) Hep Bs Antigen (NEGATIVE) Hep B Core IgM Ab (NEGATIVE) Hepatitis C Antibody (NEGATIVE) Ur L.pneumophila Ag (NEGATIVE) 01/01/18 12/31/17 12/31/17 Range/Units 00:00 19:59 15:15 WBC (4.5-11.0) 10^3/ul RBC (3.5-6.1) 10^6/uL Hgb (14.0-18.0) g/dL Hct (42.0-52.0) % MCV (80.0-105.0) fl MCH (25.0-35.0) pg MCHC (31.0-37.0) g/dl RDW (11.5-14.5) % Plt Count (120.0-450.0) 10^3/uL MPV (7.0-11.0) fl pCO2 (35-45) mm/Hg pO2 (80-100) mm/Hg HCO3 (21-28) mmol/L ABG pH (7.35-7.45) ABG Total CO2 (22-28) mmol.L ABG O2 Saturation (95-98) % ABG O2 Content (15-23) ML/dl ABG Base Excess (-2.0-3.0) mmol/L ABG Hemoglobin (11.7-17.4) g/dL ABG Carboxyhemoglobin (0.5-1.5) % POC ABG HHb (Measured) (0-5) % ABG Methemoglobin (0.0-3.0) % ABG O2 Capacity (16-24) mL/dl Hgb O2 Saturation (95.0-98.0) % FiO2 % Sodium 130 L 128 L 127 L (132-148) mmol/L Potassium 3.1 L 3.4 L 3.2 L (3.6-5.0) mmol/L Chloride 95 L 93 L 92 L (98-107) mmol/L Carbon Dioxide 30 29 30 (21-33) mmol/L Anion Gap 8 L 10 9 L (10-20) BUN 4 L 4 L 3 L (7-21) mg/dL Creatinine 0.5 L 0.5 L 0.5 L (0.8-1.5) mg/dl Est GFR ( Amer) > 60 > 60 > 60 Est GFR (Non-Af Amer) > 60 > 60 > 60 Random Glucose 109 110 110 (70-110) mg/dL Calcium 7.5 L 7.4 L 7.4 L (8.4-10.5) mg/dL Magnesium (1.7-2.2) mg/dL Total Bilirubin (0.2-1.3) mg/dL AST (17-59) U/L ALT (7-56) U/L Alkaline Phosphatase (38-126) U/L Total Protein (5.8-8.3) g/dL Albumin (3.0-4.8) g/dL Globulin gm/dL Albumin/Globulin Ratio (1.1-1.8) Urine Osmolality (300-1000) mosm/kg Ur Random Sodium meq/L Hepatitis A IgM Ab (NEGATIVE) Hep Bs Antigen (NEGATIVE) Hep B Core IgM Ab (NEGATIVE) Hepatitis C Antibody (NEGATIVE) Ur L.pneumophila Ag (NEGATIVE) 12/31/17 12/30/17 12/30/17 Range/Units 15:00 18:20 16:40 WBC (4.5-11.0) 10^3/ul RBC (3.5-6.1) 10^6/uL Hgb (14.0-18.0) g/dL Hct (42.0-52.0) % MCV (80.0-105.0) fl MCH (25.0-35.0) pg MCHC (31.0-37.0) g/dl RDW (11.5-14.5) % Plt Count (120.0-450.0) 10^3/uL MPV (7.0-11.0) fl pCO2 (35-45) mm/Hg pO2 (80-100) mm/Hg HCO3 (21-28) mmol/L ABG pH (7.35-7.45) ABG Total CO2 (22-28) mmol.L ABG O2 Saturation (95-98) % ABG O2 Content (15-23) ML/dl ABG Base Excess (-2.0-3.0) mmol/L ABG Hemoglobin (11.7-17.4) g/dL ABG Carboxyhemoglobin (0.5-1.5) % POC ABG HHb (Measured) (0-5) % ABG Methemoglobin (0.0-3.0) % ABG O2 Capacity (16-24) mL/dl Hgb O2 Saturation (95.0-98.0) % FiO2 % Sodium (132-148) mmol/L Potassium (3.6-5.0) mmol/L Chloride (98-107) mmol/L Carbon Dioxide (21-33) mmol/L Anion Gap (10-20) BUN (7-21) mg/dL Creatinine (0.8-1.5) mg/dl Est GFR ( Amer) Est GFR (Non-Af Amer) Random Glucose (70-110) mg/dL Calcium (8.4-10.5) mg/dL Magnesium (1.7-2.2) mg/dL Total Bilirubin (0.2-1.3) mg/dL AST (17-59) U/L ALT (7-56) U/L Alkaline Phosphatase (38-126) U/L Total Protein (5.8-8.3) g/dL Albumin (3.0-4.8) g/dL Globulin gm/dL Albumin/Globulin Ratio (1.1-1.8) Urine Osmolality 354 (300-1000) mosm/kg Ur Random Sodium 64 meq/L Hepatitis A IgM Ab Negative (NEGATIVE) Hep Bs Antigen Negative (NEGATIVE) Hep B Core IgM Ab Negative (NEGATIVE) Hepatitis C Antibody Negative (NEGATIVE) Ur L.pneumophila Ag Negative (NEGATIVE) Laboratory Results - last 24 hr 12/30/17 12/30/17 12/31/17 16:40 18:20 15:00 WBC RBC Hgb Hct MCV MCH MCHC RDW Plt Count MPV pCO2 pO2 HCO3 ABG pH ABG Total CO2 ABG O2 Saturation ABG O2 Content ABG Base Excess ABG Hemoglobin ABG Carboxyhemoglobin POC ABG HHb (Measured) ABG Methemoglobin ABG O2 Capacity Hgb O2 Saturation FiO2 Sodium Potassium Chloride Carbon Dioxide Anion Gap BUN Creatinine Est GFR ( Amer) Est GFR (Non-Af Amer) Random Glucose Calcium Magnesium Total Bilirubin AST ALT Alkaline Phosphatase Total Protein Albumin Globulin Albumin/Globulin Ratio Urine Osmolality 354 Ur Random Sodium 64 Hepatitis A IgM Ab Negative Hep Bs Antigen Negative Hep B Core IgM Ab Negative Hepatitis C Antibody Negative Ur L.pneumophila Ag Negative 12/31/17 12/31/17 01/01/18 15:15 19:59 00:00 WBC RBC Hgb Hct MCV MCH MCHC RDW Plt Count MPV pCO2 pO2 HCO3 ABG pH ABG Total CO2 ABG O2 Saturation ABG O2 Content ABG Base Excess ABG Hemoglobin ABG Carboxyhemoglobin POC ABG HHb (Measured) ABG Methemoglobin ABG O2 Capacity Hgb O2 Saturation FiO2 Sodium 127 L 128 L 130 L Potassium 3.2 L 3.4 L 3.1 L Chloride 92 L 93 L 95 L Carbon Dioxide 30 29 30 Anion Gap 9 L 10 8 L BUN 3 L 4 L 4 L Creatinine 0.5 L 0.5 L 0.5 L Est GFR ( Amer) > 60 > 60 > 60 Est GFR (Non-Af Amer) > 60 > 60 > 60 Random Glucose 110 110 109 Calcium 7.4 L 7.4 L 7.5 L Magnesium Total Bilirubin AST ALT Alkaline Phosphatase Total Protein Albumin Globulin Albumin/Globulin Ratio Urine Osmolality Ur Random Sodium Hepatitis A IgM Ab Hep Bs Antigen Hep B Core IgM Ab Hepatitis C Antibody Ur L.pneumophila Ag 01/01/18 01/01/18 01/01/18 04:15 04:15 06:00 WBC 6.6 RBC 2.22 L Hgb 8.0 L Hct 22.9 L MCV 103.2 MCH 36.0 H MCHC 34.9 RDW 16.7 H Plt Count 247 MPV 8.4 pCO2 38 pO2 58.0 L HCO3 29.0 H ABG pH 7.49 H ABG Total CO2 30.2 H ABG O2 Saturation 100.6 H ABG O2 Content 9.8 L ABG Base Excess 5.2 H ABG Hemoglobin 7.2 L ABG Carboxyhemoglobin 3.7 H POC ABG HHb (Measured) -0.6 L ABG Methemoglobin 1.0 ABG O2 Capacity 9.7 L Hgb O2 Saturation 96.0 FiO2 35.0 Sodium 132 Potassium 3.3 L Chloride 96 L Carbon Dioxide 30 Anion Gap 9 L BUN 3 L Creatinine 0.5 L Est GFR ( Amer) > 60 Est GFR (Non-Af Amer) > 60 Random Glucose 87 Calcium 7.6 L Magnesium 1.4 L Total Bilirubin 0.9 AST 62 H D ALT 30 Alkaline Phosphatase 160 H D Total Protein 4.9 L Albumin 2.2 L Globulin 2.7 Albumin/Globulin Ratio 0.8 L Urine Osmolality Ur Random Sodium Hepatitis A IgM Ab Hep Bs Antigen Hep B Core IgM Ab Hepatitis C Antibody Ur L.pneumophila Ag Critical Care Progress Note - Nutrition Nutrition: Nutrition Category Date Time Status NPO Diet [DIET] Diets 12/30/17 Dinner Ordered Assessment/Plan - Assessment and Plan (Free Text) Plan: Patient seen and examined, on rounds, with resident, agree with note with following additions/exceptions: Patient is 52yo male with 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 Pt is currently intubated, OFF propofol, started on precedex dirp, placed on Pressure support, P 5, doing well, RSBI 20-30. Patients mental status waxes and weanes, cannot fully follow commands. Neurology following. Seizure disorder DTs CAD EtOH abuse Hx of CVA AMS Recommend: - cont with vent support, low tidal vol ventilation, daily sedation vacation, patient not ready to be extubated 2/2 poor mental status - duonebs PRN - Antibiotics as per ID, may need spinal tap with mental status does not improve , will discuss with neurology - AEDs as per neurology - Precedex drip - consider MRI brain - monitor HH - monitor renal function - start NS 80cc/hr - Ativan PRN - if not extubated today, would start feeds - FS control - GI ppx, - DVT ppx, HSQ - Monitor in MICU Critical care time 35 minutes
[2018-01-01] MEDS: Sodium Chloride 0.9% 1,000 ML IV SCH ×2 (10:31→20:00)
[2018-01-01] MEDS ORDERED: Magnesium 2 gm/50 ml NS 2 GM/50 ML BAG IVPB ONE (10:34)
[2018-01-01] MEDS ORDERED: Dexmedetomidine 400mcg/100mL 400 MCG/100 ML BOTTLE IV PRN (11:24)
--- NOTE | 2018-01-01 11:30 | PN ---
DATE: 01/01/2018 CARDIOLOGY FOLLOWUP SUBJECTIVE: The patient remains on a ventilator, is off sedation and seems to have some focal twitching. PHYSICAL EXAMINATION: VITAL SIGNS: Stable, heart rate is in the 90s, sinus rhythm with frequent PVCs. NECK: Negative JVD. LUNGS: Decreased breath sounds. HEART: Reveals S1, S2. EXTREMITIES: Without edema. LABORATORY DATA: Potassium is 3.3, magnesium is 1.4. Hemoglobin is 8. IMPRESSION: 1. Seizures. 2. Alcoholism. 3. Hypomagnesemia. 4. Dilated cardiomyopathy. 5. Premature ventricular contractions. 6. Respiratory failure. PLAN: Given these findings, we will aggressively replace his magnesium and potassium. Echocardiogram has been ordered. We will make an attempt after neuro evaluation to extubate the patient. Hakeem Bassett MD
[2018-01-01] MEDS: Digoxin 500 mcg/2ml (0.5 mg/2ml) Inj IVP SCH (13:33)
[2018-01-01 13:39] VITALS: PULSE 92
--- NOTE | 2018-01-01 13:57 | CP.PCM.PN ---
Subjective - Date & Time of Evaluation Date of Evaluation: 01/01/18 Time of Evaluation: 13:57 - Subjective Subjective: no events overnight pe: vitals reviewed intubated sedated heent normal op moist ett + s1s2 present, tachycardia no resp distress, vent dep no edema abd soft non distended skin normal ao times 0 psy unable to assess A&P: acute on chronic hyponatremia/alcohol dependence/seizure disorder/acute resp failure sodium improved agree with stopping hypertonic saline monitor serum sodium levels vent and pressor support per icu Objective - Vital Signs/Intake and Output Vital Signs (last 24 hours): Temp Pulse Resp BP Pulse Ox 97.8 F 102 H 18 143/86 100 01/01/18 08:00 01/01/18 11:02 01/01/18 11:02 01/01/18 11:01 01/01/18 11:02 Intake and Output: 01/01/18 01/01/18 06:59 18:59 Intake Total 1440 162 Output Total 1100 Balance 340 162 - Medications Medications: Current Medications Digoxin (Lanoxin) 0.25 mg IVP 1400 SHERRIE Last Admin: 01/01/18 13:33 Dose: 0.25 mg Midazolam 100 mg/100ml in NS (Midazolam 100 Mg/100ml In Ns) 100 mg in 100 mls @ 1 mls/hr IV .Q24H PRN; Protocol; 1 MG/HR PRN Reason: Agitation Last Admin: 01/01/18 07:01 Dose: 7 mg/hr, 7 mls/hr NOREPINEPHRINE BIT/0.9 % NACL (Levophed 4 Mg/ 250 Ml Ns Premixed) 4 mg in 250 mls @ 15 mls/hr IV .[id number] PRN; Protocol; 4 MCG/MIN PRN Reason: TITRATE PER MD ORDER Last Titration: 01/01/18 00:00 Dose: 0 mcg/min, 0 mls/hr Multivitamins/Vitamin C 10 ml/Folic Acid 1 mg/ Thiamine HCl 100 mg/ Sodium Chloride 1,011.2 mls @ 50 mls/hr IV .[id number] [facility] Last Admin: 01/01/18 09:43 Dose: 50 mls/hr Acyclovir 750 mg/ Sodium (Chloride) 100 mls @ 100 mls/hr IV Q8 SHERRIE PRN Reason: Protocol Stop: 01/09/18 11:01 Last Admin: 01/01/18 06:05 Dose: 100 mls/hr Propofol (Diprivan) 1,000 mg in 100 mls @ 1.56 mls/hr IV .Q24H PRN; Protocol; 5 MCG/KG/MIN PRN Reason: TITRATE PER MD ORDER Last Titration: 01/01/18 08:00 Dose: 0 mcg/kg/min, 0 mls/hr Potassium Chloride (Potassium Chloride 10 Meq/100 Ml) 10 meq in 100 mls @ 50 mls/hr IVPB Q2H SHERRIE Stop: 01/01/18 14:29 Last Admin: 01/01/18 13:32 Dose: 50 mls/hr Sodium Chloride (Sodium Chloride 0.9%) 1,000 mls @ 100 mls/hr IV .Q10H SHERRIE Last Admin: 01/01/18 10:31 Dose: 100 mls/hr Dexmedetomidine HCl (Precedex 400mcg/100ml) 400 mcg in 100 mls @ 2.615 mls/hr IV .Q24H PRN; Protocol; 0.2 MCG/KG/HR PRN Reason: Delirium Tremens Last Admin: 01/01/18 11:41 Dose: 0.2 mcg/kg/hr, 2.615 mls/hr Levetiracetam 750 mg/ Sodium (Chloride) 107.5 mls @ 460 mls/hr IV Q12 SHERRIE Lorazepam (Ativan) 1 mg IVP Q3H SH[facility]RIE PRN Reason: Protocol Last Admin: 01/01/18 11:43 Dose: 1 mg Lorazepam (Ativan) 2 mg IVP Q4H PRN; Protocol PRN Reason: Anxiety Pantoprazole Sodium (Protonix Inj) 40 mg IVP DAILY [facility] Last Admin: 01/01/18 09:44 Dose: 40 mg - Labs Labs: 01/01/18 04:15 01/01/18 04:15 PT 14.4 SECONDS (9.4-12.5) H 12/31/17 04:26 INR 1.26 (0.93-1.08) H 12/31/17 04:26 APTT 38.1 Seconds (25.1-36.5) H 12/31/17 04:26
--- NOTE | 2018-01-01 14:31 | PN ---
DATE: 01/01/2018 PULMONARY PROGRESS NOTE SUBJECTIVE: The patient was seen and examined at bedside on the ventilator. His is present at the time of examination. He is currently on a CPAP mode for 1 hour, tolerating well. His current FiO2 is 40% and the respiratory rate on CPAP is 12. PHYSICAL EXAMINATION: VITAL SIGNS: His temperature is 97.8, pulse 102, respirations 22, pulse oximetry is 100% on CPAP, blood pressure is 140/86. HEENT: Examination of head, ears, nose, and throat; he is intubated orally. NECK: Supple with no jugular vein distentions. CARDIOVASCULAR: S1, S2. No S3. Regular. PULMONARY: Good bilateral air entry. No rhonchi and no wheezing. GASTROINTESTINAL: Soft, nontender. No organomegaly. EXTREMITIES: No pedal edema. SKIN: No acute skin rash. NEUROLOGIC: The patient continues to have clonic seizures. He is also tremulous. ADDITIONAL LABORATORY DATA: His arterial blood gas shows pH of 7.49, pCO2 of 29, and pO2 of 58 on 40% FiO2. Chemistries reveal reduced potassium at 3.3. His liver function tests have improved. WBC is 6.6 and hemoglobin of 8. ASSESSMENT: 1. Acute respiratory failure. 2. Possible delirium tremens. 3. Moderately severe anemia. 4. Respiratory alkalosis. 5. Improved pulmonary vascular congestion. PLAN: The patient is tolerating CPAP very well. He is much more awake and alert. I have discussed case with the zipper joiner. He would like the patient more awake and alert prior to extubation attempt, but in general he is making good progress. I also reviewed his chest x-ray that is almost clear. The pulmonary vascular congestion present yesterday is no longer present. Reji Mcconnell MD
--- NOTE | 2018-01-01 15:04 | PN ---
DATE: 01/01/2018 SUBJECTIVE: He is in the Intensive Care Unit, still on the ventilator. It is very possible the shakings he is having are DTs from being off of alcohol. That is what his said, she has seen them many times. MEDICATIONS: He is on acyclovir, Ativan, Diprivan, Keppra, Lanoxin, norepinephrine, midazolam, multivitamin, potassium, and Protonix. PHYSICAL EXAMINATION: VITAL SIGNS: He has a 16 respiratory rate, 98% O2 sat. He has a 97.8 temperature and 129/79 blood pressure. HEENT: His head is atraumatic, normocephalic. On the vent. HEART: Regular rate. LUNGS: Decreased breath sounds, but clear. ABDOMEN: Soft. EXTREMITIES: No edema, but he is twitching. It is not like it was before when DT, I agree with the . LABORATORY DATA: He has a 6.6 white count, 8 hemoglobin, 22.9 hematocrit with 247 platelets. 132 sodium; potassium 3.3, we are replacing the potassium; BUN 3; creatinine 0.5; GFR is greater than 60; sugar is 87; calcium is 7.6; magnesium 1.4; total bili is 0.9; AST is 62; ALT is 30; alk phos is 160; total protein is 4.9. ASSESSMENT AND PLAN: He is having a rough go at this time. His human immunodeficiency virus is negative. Legionella is negative. Hepatitis is negative. He is being seen by Cardiology, Infectious Disease, facility mechanic, spotlight operator. He is an alcoholic who comes in with withdrawal seizures, old cerebrovascular accident from the cruise ship. Now, he has acute respiratory distress, on ventilator and hopefully he will improve. Discussed with the at length. Julian West DO MTDD
--- NOTE | 2018-01-02 03:49 | CON ---
DATE: HISTORY OF PRESENT ILLNESS: This is a 52-year-old male with known history of and the patient came from cruise with rapid heart rate and seizure, and history of cardiomyopathy, and both were on a cruise, and , where he drank heavy drinks, 8 to 9 cans of beer daily, and last few days, he has been poorly complaint with the medications, and the patient was in the ship, started getting seizure, was taken to the hospital and transferred to [facility]. PAST MEDICAL HISTORY: Alcohol abuse, cardiomyopathy, seizures, and has also COPD, history of CVA. REVIEW OF SYSTEMS: , the patient still unresponsive. PHYSICAL EXAMINATION: On examination, pupils reactive, the patient is still unresponsive, not following any commands, under sedation. ASSESSMENT AND PLAN: The patient is on seizure medicine, Keppra 500 IV every 12, and at times the patient is tremulous, and no spontaneous movement, I think possibly because of sedation; the patient still intubated, and will follow up seizure precautions and further management after the results of all the above tests. Darío Blanchard MD
[2018-01-02 06:13] LABS: ARTERIAL BLOOD GAS HCO3 21.8 mmol/L (21-28); ARTERIAL BLOOD GAS O2 CAPACITY 11.4 mL/dl (16-24); ARTERIAL BLOOD GAS O2 CONTENT 11.4 ML/dl (15-23); ARTERIAL BLOOD GAS O2 SAT 99.9 % (95-98); ARTERIAL BLOOD GAS PCO2 30 mm/Hg (35-45); ARTERIAL BLOOD GAS PH 7.47 (7.35-7.45); ARTERIAL BLOOD GAS TCO2 22.7 mmol.L (22-28)
[2018-01-02] MEDS: Sodium Chloride 0.9% 1,000 ML IV SCH (06:14)
--- NOTE | 2018-01-02 06:18 | PN ---
DATE: 01/01/2018 SUBJECTIVE: The patient is in bed, in no acute distress, comfortable. He had multiple seizures yesterday. He remains intubated on a vent. As per nurse, the patient is intermittently responsive. The patient's is at the bedside. PHYSICAL EXAMINATION: VITAL SIGNS: Temperature is 98, blood pressure is 130/70, respiratory rate on a vent, heart rate of 107. HEENT: Unremarkable. ET tube is in place. NECK: Supple. LUNGS: Have decreased breath sounds. HEART: Normal S1 and S2. ABDOMEN: Soft, nontender. DATA: Laboratory examination reveals a white count of 6.7, hemoglobin of 8, platelets of 247. Chemistries are noted. The patient's procalcitonin is 0.23. Urinalysis is noted and serology HIV is negative. Urine for Legionella antigen is negative and blood cultures are negative. Nasal MRSA screen is negative. Urine cultures are negative. Review of the imaging reveals the patient's chest x-ray from yesterday, congestion and early bilateral lower lobe alveolar infiltrate. The patient is on meropenem, Levaquin and acyclovir. ASSESSMENT AND PLAN: This is a 52-year-old male whose states that they were on a cruise in the [employer] [place] and the patient was perfectly fine right up to the time when he had seizures. He had not been complaining of headaches. There was no change of mental status. There was no fever, no evidence of herpes encephalitis. Based on the history, the patient has had a long history of alcoholism, has had alcohol withdrawal seizures in the past and she states that on a cruise, she was forcing him to drink less, normally he drinks a lot more at home. At this point, the patient with respiratory failure, intubated on a ventilator with systemic inflammatory response syndrome and I doubt herpes encephalitis, has day #2 of acyclovir. Procalcitonin is negative and cultures are negative. We will discontinue Levaquin and meropenem and at this point, I do not feel he has an infectious process. We will speak to Dr. Blanchard. Continue the acyclovir for now. Although, herpes encephalitis is less likely based on the history that the gives. We will follow closely for development of nosocomial infections in this patient with alcoholic seizures related to alcoholism. Kumar Garvin MD [facility] # [id number]
[2018-01-02 06:51] LABS: BASO # 0.04 K/mm3 (0.0-2.0); BASO % 0.6 % (0.0-3.0); EOS % 0.6 % (1.5-5.0); GRAN # 4.18 (1.4-6.5); GRAN % 65.2 % (50.0-68.0); HEMOGLOBIN 8.3 g/dL (14.0-18.0); LYMPH # 1.5 (1.2-3.4); LYMPH % 23.6 % (22.0-35.0); MEAN CELL VOLUME 103.9 fl (80.0-105.0); MEAN CORPUSCULAR HEMOGLOBIN 35.6 pg (25.0-35.0); MEAN CORPUSCULAR HGB CONC 34.3 g/dl (31.0-37.0); MEAN PLATELET VOLUME 8.4 fl (7.0-11.0); MONO # 0.6 (0.1-0.6); RBC 2.33 10^6/uL (3.5-6.1); RED CELL DISTRIBUTION WIDTH 16.6 % (11.5-14.5); WHITE BLOOD COUNT 6.4 10^3/ul (4.5-11.0)
[2018-01-02 07:25] LABS: ALB/GLOB RATIO 0.8 (1.1-1.8); ALBUMIN 2.4 g/dL (3.0-4.8); ALT/SGPT 37 U/L (7-56); AST/SGOT 67 U/L (17-59); BLOOD UREA NITROGEN 3 mg/dL (7-21); CALCIUM 7.7 mg/dL (8.4-10.5); GFR AFRICAN-AMERICAN > 60; GFR NON-AFRICAN AMERICAN > 60
--- NOTE | 2018-01-02 07:25 | CP.CCUPN ---
<Hood Mathews - Last Filed: 01/02/18 13:12> CCU Subjective - Physician Review Subjective (Free Text): 01/02/18 11:22 Patient seen and examined at bedside in ICU. Remained intubated and on precedex for conscious sedation. Overnight, was reported to be more alert and awake, however this AM patient remains minimally responsive/not following commands. Additionally, reported to have a fever of 100.9F this AM. Increased intermittent twitching observed in AM; EEG obtained and patient noted to be having seizures during EEG. Discussed with Neuro (Dr. Blanchard); increased Keppra to 1000mg IV q12 and ordered 1x Valproic Acid at 15mg/kg (rounded to 800mg) as per their instructions. Precedex was also stopped, and pt was restarted on Versed and Propofol. MRI brain was obtained this AM, and was concerning for possible Encephalitis vs reversible ischemia at the right thalmus. Discussed with ID (Dr. Garvin), who instructed to continue Acyclovir, and recommended obtaining a lumbar puncture for CSF analysis. Discussed with patient's at bedside, who understands and agrees with current plan. CCU Objective - Vital Signs / Intake & Output Vital Signs (Last 4 hours): Vital Signs Temp Pulse BP Pulse Ox 01/02/18 06:00 115 H 142/77 100 01/02/18 05:30 114 H 100 01/02/18 05:00 108 H 146/85 100 01/02/18 04:30 102 H 100 01/02/18 04:00 100.9 F H 108 H 142/80 100 01/02/18 03:42 105 H 01/02/18 03:41 103 H 01/02/18 03:40 102 H 01/02/18 03:39 102 H 01/02/18 03:38 103 H 01/02/18 03:37 106 H 01/02/18 03:36 102 H 01/02/18 03:35 101 H 01/02/18 03:34 102 H 01/02/18 03:33 104 H 01/02/18 03:30 103 H 100 01/02/18 03:26 102 H 01/02/18 03:25 109 H Intake and Output (Last 8hrs): Intake & Output 05/28/18 05/29/18 05/29/18 22:59 06:59 14:59 Intake Total 1561 2100 Output Total 1400 1500 Balance 161 600 Intake: IV 1561 2100 Right Internal Jugular 1500 2100 Output: Urine 1400 1500 Urethral (Terrell) 1400 1500 - Physical Exam Head: Positive for: Atraumatic, Normocephalic Pupils: Positive for: Other (left slighly enlarged pupil vs left b/l reactive). Negative for: Non-Reactive, Pinpoint Extroacular Muscles: Positive for: Other (intermittent, predominantly horizontal , jerks of eyes, but not tracking staff/ in room, witnessed with leftward gaze deviation during 1 notable twitching session, since resolved). Negative for: EOMI Conjunctiva: Positive for: Normal. Negative for: Injected, Icteric Ears: Positive for: Normal Mouth: Positive for: Moist Mucous Membranes, Other (ETT in place) Nose (External): Positive for: Atraumatic. Negative for: Abrasion, Laceration, Lesions Nose (Internal): Positive for: Normal Inspection, No Active Bleeding. Negative for: Epistaxis Neck: Positive for: Other (sedated/AMS, no appreciate spontaneous movement of neck appreciated, but passive ROM intact, no rigidity or abnormal barriers to movement appreciated) Respiratory/Chest: Positive for: Clear to Auscultation, Good Air Exchange, Other (mechanically ventilated, overbreathing ventilator). Negative for: Respiratory Distress, Accessory Muscle Use, Wheezes, Rales, Retracting, Rhonchi Cardiovascular: Positive for: Normal S1, S2, Peripheal Pulses Present (+1-2 radial and dorsalis pedis bilaterally), Tachycardic. Negative for: Regular Rate and Rhythm, Murmurs, Irregular Rhythm, Bradycardic Abdomen: Positive for: Normal Bowel Sounds, Other (unable to assess tenderness due to sedation/AMS, but no gross reaction or guarding on palpation). Negative for: Distention, Peritoneal Signs, Rebound, Feeding Tubes, Mass/Organomegaly Upper Extremity: Positive for: Normal Inspection, NORMAL PULSES, Other (gross twitches of bilateral UE L>R intermittently, otherwise holding limbs flaccidly ) . Negative for: Cyanosis, Edema, Swelling, Erythema, Deformity Lower Extremity: Positive for: Normal Inspection, NORMAL PULSES, Other (gross twitches of bilateral LE L>R intermittently, otherwise holding limbs flaccidly ) . Negative for: Edema, Cyanosis, Tenderness, Swelling, Erythema, Deformity Neurological: Positive for: Other (sedated/AMS, gross twitches (L>R) appreciated intermittently, seizure-like activity with rapidly alternating horizontal eye-movement and diffuse body twiches (L>R) concurrently). Negative for: GCS=15 (GCS 7 (E2 V1t M4)) Skin: Positive for: Warm, Dry, Normal Color. Negative for: Rashes Psychiatric: Positive for: Other (Sedated/AMS, intubated, so unable to assess) - Medications Active Medications: Active Medications Generic Name Dose Route Start Last Admin Trade Name Freq PRN Reason Stop Dose Admin Digoxin 0.25 mg 12/31/17 14:00 01/01/18 13:33 Lanoxin IVP 0.25 mg 1400 SHERRIE Administration Midazolam 100 mg/100ml in NS 100 mg in 100 mls @ 1 mls/hr 12/30/17 12:28 08:00 Midazolam 100 Mg/100ml In Ns IV 0 mg/hr .Q24H PRN 0 mls/hr Agitation Titration Protocol 1 MG/HR NOREPINEPHRINE BIT/0.9 % NACL 4 mg in 250 mls @ 15 mls/hr 12/30/17 23:18 00:00 Levophed 4 Mg/ 250 Ml Ns Premixed IV 0 mcg/min .[id number] PRN 0 mls/hr TITRATE PER MD ORDER Titration Protocol 4 MCG/MIN Multivitamins/Vitamin C 10 ml/ 1,011.2 mls @ 50 mls/hr 12/31/17 03:17 09:43 Folic Acid 1 mg/ Thiamine HCl IV 50 mls/hr 100 mg/ Sodium Chloride .[id number] SHERIRE Administration Acyclovir 750 mg/ Sodium 100 mls @ 100 mls/hr 12/31/17 11:00 01/02/18 05:09 Chloride IV 01/09/18 11:01 100 mls/hr Q8 SHERRIE Administration Protocol Propofol 1,000 mg in 100 mls @ 1.56 mls/hr 12/31/17 11:53 01/01/18 08:00 Diprivan IV 0 mcg/kg/min .Q24H PRN 0 mls/hr TITRATE PER MD ORDER Titration Protocol 5 MCG/KG/MIN Sodium Chloride 1,000 mls @ 100 mls/hr 01/01/18 10:00 01/02/18 06:14 Sodium Chloride 0.9% IV 100 mls/hr .Q10H SHERRIE Administration Dexmedetomidine HCl 400 mcg in 100 mls @ 2.615 mls/hr 01/01/18 11:24 20:45 Precedex 400mcg/100ml IV 1 mcg/kg/hr .Q24H PRN 13.076 mls/hr Delirium Tremens Titration Protocol 0.2 MCG/KG/HR Levetiracetam 750 mg/ Sodium 107.5 mls @ 460 mls/hr 01/01/18 22:00 01/01/18 21:16 Chloride IV 460 mls/hr Q12 SHERRIE Administration Lorazepam 1 mg 01/01/18 16:58 01/01/18 19:56 Ativan IVP 1 mg Q4H PRN Administration Seizures Protocol Pantoprazole Sodium 40 mg 12/31/17 10:00 01/01/18 09:44 Protonix Inj IVP 40 mg DAILY SHERRIE Administration - Patient Studies Lab Studies: Microbiology Studies 12/30/17 18:20 Gram Stain - Final Sputum Induced Sputum Culture - Preliminary No growth. Lab Studies 01/02/18 01/01/18 12/30/17 Range/Units 05:00 18:50 16:40 pCO2 30 L (35-45) mm/Hg pO2 159.0 H (80-100) mm/Hg HCO3 21.8 (21-28) mmol/L ABG pH 7.47 H (7.35-7.45) ABG Total CO2 22.7 (22-28) mmol.L ABG O2 Saturation 99.9 H (95-98) % ABG O2 Content 11.4 L (15-23) ML/dl ABG Base Excess -1.5 (-2.0-3.0) mmol/L ABG Hemoglobin 8.0 L (11.7-17.4) g/dL ABG Carboxyhemoglobin 1.5 (0.5-1.5) % POC ABG HHb (Measured) 0.1 (0-5) % ABG Methemoglobin 0.8 (0.0-3.0) % ABG O2 Capacity 11.4 L (16-24) mL/dl Hgb O2 Saturation 97.6 (95.0-98.0) % FiO2 40.0 % Ur Random Creatinine 26 mg/dL Hepatitis A IgM Ab Negative (NEGATIVE) Hep Bs Antigen Negative (NEGATIVE) Hep B Core IgM Ab Negative (NEGATIVE) Hepatitis C Antibody Negative (NEGATIVE) Laboratory Results - last 24 hr 12/30/17 01/01/18 01/02/18 16:40 18:50 05:00 pCO2 30 L pO2 159.0 H HCO3 21.8 ABG pH 7.47 H ABG Total CO2 22.7 ABG O2 Saturation 99.9 H ABG O2 Content 11.4 L ABG Base Excess -1.5 ABG Hemoglobin 8.0 L ABG Carboxyhemoglobin 1.5 POC ABG HHb (Measured) 0.1 ABG Methemoglobin 0.8 ABG O2 Capacity 11.4 L Hgb O2 Saturation 97.6 FiO2 40.0 Ur Random Creatinine 26 Hepatitis A IgM Ab Negative Hep Bs Antigen Negative Hep B Core IgM Ab Negative Hepatitis C Antibody Negative Review of Systems - Review of Systems Systems not reviewed;Unavailable: Intubated Critical Care Progress Note - Nutrition Nutrition: Nutrition Category Date Time Status NPO Diet [DIET] Diets 12/30/17 Dinner Ordered Assessment/Plan - Assessment and Plan (Free Text) Assessment: This is a 52 yo M with 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 Patient was intubated for airway protection and sedated. He was noted to have seizure-like activity, confirmed seizure on EEG, restarted on Propofol/Versed, increased dosage of anti-epileptics as per Neuro, and is pending lumbar puncture to obtain CSF for further analysis. Plan: Neuro: -previously sedation on Propofol/Versed, then on Precedex drip; now back on Versed/Propofol due to confirmed seizure activity -seizures observed on EEG, Neuro aware, increased Keppra to 1000mg q12 and ordered x1 valproic acid 15mg/kg (800mg dose) -fever this AM of 100.9F, new cultures (blood, urine, sputum) and procal ordered as per ID -continue Acyclovir as per ID but no need for Merrem at this time, obtain lumbar puncture for CSF analysis and culture -Ativan 4mg x1 given for witnessed seizure activity -As per Neuro and ID: will obtain serum and CSF HSV/CMV PCR, Legionella CSF test , and NMDA receptor antibody test -MRI brain obtained, concerning for possible encephalitis vs reversible ischemia at medial aspect right thalmus; as per Neuro also 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, start Thiamine 500mg daily Cardio: -hx CAD and cardiomyopathy with EF 25% -cardiomyopathy likely 2/2 chronic alcohol abuse -Cardio following, appreciate all recs; echo ordered, repleting Mag/K -digoxin d/c due to risk for dig tox in persistent hypoK/hypoMag Pulm: -intubated and sedated, tolerated pressure support well but remains intubated due to mental status/questionable ability to protect airway -ABG this AM reviewed, improved paO2 and pH noted -CXR this AM reviewed, ETT in appropriate position -continue PRN suction due to secretions -maintain SaO2 > 90% and paO2 > 60 -VAP bundle, aspiration precautions -Pulm following, appreciate all recs GI: -NPO due to intubation -NGT placed and confirmed with CXR -Protonix for GI ppx Renal: -making good urine output -monitor and replete electrolytes as needed -Cr stable at 0.5 -Hx SIADH noncompliant with salt tab therapy; Na improved from 120 on admit to 131 this AM (was 132 yesterday) -Nephro consulted, appreciate all recs Heme: -no signs of acute bleeding -holding AC until lumbar puncture complete, can start on daily Lovenox after, SCDs until then -Hgb stable at 8.3 (was 8.0) ID: -no leukocytosis, but developed febrile temp to 100.9F -empirically on acyclovir as per ID, pending repeat culture workup given new temp -pending lumbar puncture for CSF analysis, testing as above as per Neuro and ID Dispo: In ICU, intubated and back on Propofol/Versed sedation due to witnessed ( in person and on EEG) seizure activity, pending lumbar puncture for CSF collection and analysis, remains on empiric Acyclovir pending results, new septic workup (cultures and procal) obtained FEN: NPO; Banana Bag 50cc/hr, NS 100cc/hr, Mag/K supplements as needed, Thiamine 500mg daily Access: peripheral IVs, R-IJ TLC Consults: Neuro, Cardio, ID, Nephro, Pulm Ppx: Protonix for GI, SCDs for DVT pending Lovenox (after lumbar puncture complete) Patient seen, reviewed, and discussed with Attending, Dr. Riley <Steve Riley - Last Filed: 01/02/18 13:35> CCU Objective - Vital Signs / Intake & Output Intake and Output (Last 8hrs): Intake & Output 01/01/18 01/02/18 01/02/18 22:59 06:59 14:59 Intake Total 1561 2100 Output Total 1400 1500 Balance 161 600 Intake: IV 1561 2100 Right Internal Jugular 1500 2100 Output: Urine 1400 1500 Urethral (Terrell) 1400 1500 - Medications Active Medications: Active Medications Generic Name Dose Route Start Last Admin Trade Name Freq PRN Reason Stop Dose Admin Multivitamins/Vitamin C 10 ml/ 1,011.2 mls @ 50 mls/hr 12/31/17 03:17 09:43 Folic Acid 1 mg/ Thiamine HCl IV 50 mls/hr 100 mg/ Sodium Chloride .[id number] SHERRIE Administration Acyclovir 750 mg/ Sodium 100 mls @ 100 mls/hr 12/31/17 11:00 01/02/18 05:09 Chloride IV 01/09/18 11:01 100 mls/hr Q8 SHERRIE Administration Protocol Sodium Chloride 1,000 mls @ 100 mls/hr 01/01/18 10:00 01/02/18 06:14 Sodium Chloride 0.9% IV 100 mls/hr .Q10H SHERRIE Administration Potassium Chloride 10 meq in 100 mls @ 50 mls/hr 01/02/18 09:15 01/02/18 10: 21 Potassium Chloride 10 Meq/100 Ml IVPB 01/02/18 15:14 50 mls/hr Q2H SHERRIE Administration Midazolam 100 mg/100ml in NS 100 mg in 100 mls @ 1 mls/hr 01/02/18 10:24 10:33 Midazolam 100 Mg/100ml In Ns IV 1 mg/hr .Q24H PRN 1 mls/hr Sedation/Seizures Administration Protocol 1 MG/HR Levetiracetam 1,000 mg/ Sodium 110 mls @ 460 mls/hr 01/02/18 10:45 01/02/18 11:21 Chloride IV 460 mls/hr Q12 SHERRIE Administration Propofol 1,000 mg in 100 mls @ 1.569 mls/hr 01/02/18 10:44 Diprivan IV .Q24H PRN TITRATE PER MD ORDER Protocol 5 MCG/KG/MIN Thiamine HCl 500 mg/ Sodium 105 mls @ 202 mls/hr 01/02/18 12:08 Chloride IM DAILY SHERRIE Lorazepam 1 mg 01/01/18 16:58 01/01/18 19:56 Ativan IVP 1 mg Q4H PRN Administration Seizures Protocol Pantoprazole Sodium 40 mg 12/31/17 10:00 01/02/18 10:22 Protonix Inj IVP 40 mg DAILY SHERRIE Administration - Patient Studies Lab Studies: Microbiology Studies 12/30/17 18:20 Gram Stain - Final Sputum Induced Sputum Culture - Final Yeast Species Lab Studies 01/02/18 01/02/18 01/02/18 Range/Units 05:00 05:00 05:00 WBC 6.4 (4.5-11.0) 10^3/ul RBC 2.33 L (3.5-6.1) 10^6/uL Hgb 8.3 L (14.0-18.0) g/dL Hct 24.2 L (42.0-52.0) % MCV 103.9 (80.0-105.0) fl MCH 35.6 H (25.0-35.0) pg MCHC 34.3 (31.0-37.0) g/dl RDW 16.6 H (11.5-14.5) % Plt Count 264 (120.0-450.0) 10^3/uL MPV 8.4 (7.0-11.0) fl Gran % 65.2 (50.0-68.0) % Lymph % (Auto) 23.6 (22.0-35.0) % [place] % (Auto) 10.0 H (1.0-6.0) % Eos % (Auto) 0.6 L (1.5-5.0) % Baso % (Auto) 0.6 (0.0-3.0) % Gran # 4.18 (1.4-6.5) Lymph # (Auto) 1.5 (1.2-3.4) [place] # (Auto) 0.6 (0.1-0.6) Eos # (Auto) 0.0 (0.0-0.7) Baso # (Auto) 0.04 (0.0-2.0) K/mm3 pCO2 30 L (35-45) mm/Hg pO2 159.0 H (80-100) mm/Hg HCO3 21.8 (21-28) mmol/L ABG pH 7.47 H (7.35-7.45) ABG Total CO2 22.7 (22-28) mmol.L ABG O2 Saturation 99.9 H (95-98) % ABG O2 Content 11.4 L (15-23) ML/dl ABG Base Excess -1.5 (-2.0-3.0) mmol/L ABG Hemoglobin 8.0 L (11.7-17.4) g/dL ABG Carboxyhemoglobin 1.5 (0.5-1.5) % POC ABG HHb (Measured) 0.1 (0-5) % ABG Methemoglobin 0.8 (0.0-3.0) % ABG O2 Capacity 11.4 L (16-24) mL/dl Hgb O2 Saturation 97.6 (95.0-98.0) % FiO2 40.0 % Sodium 131 L (132-148) mmol/L Potassium 3.3 L (3.6-5.0) mmol/L Chloride 97 L (98-107) mmol/L Carbon Dioxide 24 (21-33) mmol/L Anion Gap 12 (10-20) BUN 3 L (7-21) mg/dL Creatinine 0.5 L (0.8-1.5) mg/dl Est GFR ( Amer) > 60 Est GFR (Non-Af Amer) > 60 Random Glucose 99 (70-110) mg/dL Calcium 7.7 L (8.4-10.5) mg/dL Phosphorus 3.2 (2.5-4.5) mg/dL Magnesium 1.2 L (1.7-2.2) mg/dL Total Bilirubin 0.8 (0.2-1.3) mg/dL AST 67 H (17-59) U/L ALT 37 (7-56) U/L Alkaline Phosphatase 197 H D (38-126) U/L Total Protein 5.5 L (5.8-8.3) g/dL Albumin 2.4 L (3.0-4.8) g/dL Globulin 3.0 gm/dL Albumin/Globulin Ratio 0.8 L (1.1-1.8) Ur Random Creatinine mg/dL 01/01/18 Range/Units 18:50 WBC (4.5-11.0) 10^3/ul RBC (3.5-6.1) 10^6/uL Hgb (14.0-18.0) g/dL Hct (42.0-52.0) % MCV (80.0-105.0) fl MCH (25.0-35.0) pg MCHC (31.0-37.0) g/dl RDW (11.5-14.5) % Plt Count (120.0-450.0) 10^3/uL MPV (7.0-11.0) fl Gran % (50.0-68.0) % Lymph % (Auto) (22.0-35.0) % [place] % (Auto) (1.0-6.0) % Eos % (Auto) (1.5-5.0) % Baso % (Auto) (0.0-3.0) % Gran # (1.4-6.5) Lymph # (Auto) (1.2-3.4) [place] # (Auto) (0.1-0.6) Eos # (Auto) (0.0-0.7) Baso # (Auto) (0.0-2.0) K/mm3 pCO2 (35-45) mm/Hg pO2 (80-100) mm/Hg HCO3 (21-28) mmol/L ABG pH (7.35-7.45) ABG Total CO2 (22-28) mmol.L ABG O2 Saturation (95-98) % ABG O2 Content (15-23) ML/dl ABG Base Excess (-2.0-3.0) mmol/L ABG Hemoglobin (11.7-17.4) g/dL ABG Carboxyhemoglobin (0.5-1.5) % POC ABG HHb (Measured) (0-5) % ABG Methemoglobin (0.0-3.0) % ABG O2 Capacity (16-24) mL/dl Hgb O2 Saturation (95.0-98.0) % FiO2 % Sodium (132-148) mmol/L Potassium (3.6-5.0) mmol/L Chloride (98-107) mmol/L Carbon Dioxide (21-33) mmol/L Anion Gap (10-20) BUN (7-21) mg/dL Creatinine (0.8-1.5) mg/dl Est GFR ( Amer) Est GFR (Non-Af Amer) Random Glucose (70-110) mg/dL Calcium (8.4-10.5) mg/dL Phosphorus (2.5-4.5) mg/dL Magnesium (1.7-2.2) mg/dL Total Bilirubin (0.2-1.3) mg/dL AST (17-59) U/L ALT (7-56) U/L Alkaline Phosphatase (38-126) U/L Total Protein (5.8-8.3) g/dL Albumin (3.0-4.8) g/dL Globulin gm/dL Albumin/Globulin Ratio (1.1-1.8) Ur Random Creatinine 26 mg/dL Laboratory Results - last 24 hr 01/01/18 01/02/18 01/02/18 18:50 05:00 05:00 WBC 6.4 RBC 2.33 L Hgb 8.3 L Hct 24.2 L MCV 103.9 MCH 35.6 H MCHC 34.3 RDW 16.6 H Plt Count 264 MPV 8.4 Gran % 65.2 Lymph % (Auto) 23.6 [place] % (Auto) 10.0 H Eos % (Auto) 0.6 L Baso % (Auto) 0.6 Gran # 4.18 Lymph # (Auto) 1.5 [place] # (Auto) 0.6 Eos # (Auto) 0.0 Baso # (Auto) 0.04 pCO2 pO2 HCO3 ABG pH ABG Total CO2 ABG O2 Saturation ABG O2 Content ABG Base Excess ABG Hemoglobin ABG Carboxyhemoglobin POC ABG HHb (Measured) ABG Methemoglobin ABG O2 Capacity Hgb O2 Saturation FiO2 Sodium 131 L Potassium 3.3 L Chloride 97 L Carbon Dioxide 24 Anion Gap 12 BUN 3 L Creatinine 0.5 L Est GFR ( Amer) > 60 Est GFR (Non-Af Amer) > 60 Random Glucose 99 Calcium 7.7 L Phosphorus 3.2 Magnesium 1.2 L Total Bilirubin 0.8 AST 67 H ALT 37 Alkaline Phosphatase 197 H D Total Protein 5.5 L Albumin 2.4 L Globulin 3.0 Albumin/Globulin Ratio 0.8 L Ur Random Creatinine 26 01/02/18 05:00 WBC RBC Hgb Hct MCV MCH MCHC RDW Plt Count MPV Gran % Lymph % (Auto) [place] % (Auto) Eos % (Auto) Baso % (Auto) Gran # Lymph # (Auto) [place] # (Auto) Eos # (Auto) Baso # (Auto) pCO2 30 L pO2 159.0 H HCO3 21.8 ABG pH 7.47 H ABG Total CO2 22.7 ABG O2 Saturation 99.9 H ABG O2 Content 11.4 L ABG Base Excess -1.5 ABG Hemoglobin 8.0 L ABG Carboxyhemoglobin 1.5 POC ABG HHb (Measured) 0.1 ABG Methemoglobin 0.8 ABG O2 Capacity 11.4 L Hgb O2 Saturation 97.6 FiO2 40.0 Sodium Potassium Chloride Carbon Dioxide Anion Gap BUN Creatinine Est GFR ( Amer) Est GFR (Non-Af Amer) Random Glucose Calcium Phosphorus Magnesium Total Bilirubin AST ALT Alkaline Phosphatase Total Protein Albumin Globulin Albumin/Globulin Ratio Ur Random Creatinine Critical Care Progress Note - Nutrition Nutrition: Nutrition Category Date Time Status NPO Diet [DIET] Diets 12/30/17 Dinner Ordered Assessment/Plan - Assessment and Plan (Free Text) Plan: Patient seen and examined, on rounds, with resident, agree with note with following additions/exceptions: Patient is 52yo male with PMHx of SIADH on salt replacement (non-compliant as per ), EtOH abuse, CAD/[place], and prior CVA with longstanding left pupil enlargement who presents with witnessed seizure after alcohol withdraw from [place]. Pt is currently intubated, ON propofol, and Versed. Patients mental status waxes and weanes, cannot fully follow commands. Neurology following. EEG done this morning, official read pending ID following Unsuccessful spinal tap attempted this morning, no immediate complications noted. Will obtain IR guided spinal tap MRI brain done, results noted rule out Meningitis/Encephalitis Seizure disorder DTs CAD EtOH abuse Hx of CVA AMS Recommend: - cont with vent support, low tidal vol ventilation - duonebs PRN - Antibiotics as per ID - AEDs as per neurology - Propofol, Versed - monitor HH - monitor renal function - NS 80cc/hr - Ativan PRN - would start feeds - FS control - IR guided spinal tap - GI ppx, - DVT ppx, lovenox - Monitor in MICU Critical care time 35 minutes
--- NOTE | 2018-01-02 08:22 | RAD ---
HISTORY: intubated COMPARISON: 01/01/2018 FINDINGS: LUNGS: No active pulmonary disease. PLEURA: No significant pleural effusion identified, no pneumothorax apparent. CARDIOVASCULAR: Normal. OSSEOUS STRUCTURES: No significant abnormalities. VISUALIZED UPPER ABDOMEN: Normal. OTHER FINDINGS: Endotracheal tube and right internal jugular line in satisfactory position IMPRESSION: No active disease.
--- NOTE | 2018-01-02 08:39 | CON ---
DATE: 12/30/2017 NEUROLOGY CONSULTATION CHIEF COMPLAINT: Seizure. HISTORY OF PRESENT ILLNESS: History is obtained from the spouse who is at bedside. This is a 52-year-old man with past medical history of SIADH, alcoholic and drinks Rosales Lite daily who was on a cruise and has history of SIADH on replacement, which states he is in the best compliant and drinks about 18 Rosales Lite per day and had history of alcohol withdrawal seizure by years ago, history of coronary artery disease, history of chronic left pupil enlargement. He came from the cruise, he was drinking alcohol about 8 to 9 beers per day, was noted to have generalized tonic-clonic seizure multiple times therefore was given valium, was brought to the ER. His CAT scan had showed no intracranial abnormality. He had sodium of 120, which is low and was dehydrated. He was given 1 g of IV Keppra times one dose and he is currently on Precedex. He is on folic acid, thiamine, multivitamins IV. Currently his withdraws to localized noxious stimulus despite him being intubated. He does follow simple commands and is restless. PAST MEDICAL HISTORY: SIADH on replacement, history of alcohol withdrawal seizure years ago, history of chronic alcoholism. SOCIAL HISTORY: He drinks about 18 Rosales Lite per day in terms of beer. No illicit drug use. MEDICATIONS: Reviewed by nurse per reconciliation sheet. REVIEW OF SYSTEMS: Fourteen-point review of systems is negative except in the HPI. ALLERGIES: ALLERGIC TO LORAZEPAM, PENICILLIN. FAMILY HISTORY: Noncontributory. PHYSICAL EXAMINATION: VITAL SIGNS: Temperature 98, pulse rate of 119, blood pressure 123/72, respiratory rate of 22 and oxygen saturation 100% by mechanical ventilation. GENERAL: Patient is intubated, in no acute distress. HEENT: Atraumatic, normocephalic. PERRLA. The left side had large pupil. The pupils are reactive, but the left side is enlarged, seems like pupil, seems chronic in nature. NECK: Supple. No JVD, no adenopathy noted. LUNGS: Clear to auscultation. No adventitious sounds. HEART: S1, S2, normal rate and rhythm. No murmurs, rubs or gallops. ABDOMEN: Soft, nontender, nondistended. Bowel sounds are present. EXTREMITIES: No clubbing, no cyanosis. Peripheral pulses are 2+ felt bilaterally. NEUROLOGICAL: Patient is intubated, lethargic but restless, moves all extremities equally. Cranial nerves II through XII intact. Motor exam: Normal tone in extremities. Moves all extremities spontaneously. Sensory exam: Withdraws to localized noxious stimulus. DTRs are 2+ throughout. Coordination and gait deferred for now. LABORATORY DATA: Sodium is 120, potassium is 3.2, chloride 83, carbon dioxide 28, BUN of less than 2, creatinine of 0.4. Random glucose 185. ASSESSMENT AND PLAN: This is a 52-year-old man who is a chronic alcoholic, drinks about 18 mL of Rosales Lite per day. He has history of ejection fraction of 25%, hypertension, syndrome of inappropriate antidiuretic hormone on replacement, does comply with medications, history of alcohol withdrawals years ago, history of chronic left eye enlarged left pupil compared to the right, had breakthrough seizures, generalized tonic-clonic type. He is currently intubated, was off sedation. He was given Precedex currently right now. His seizures are mostly secondary to metabolic along with hyponatremia of 120 and . At this time we will recommend; 1. Continue with Keppra 1000 mg being given x1 dose. We will give maintenance dose of 500 intravenously every 12 hours. 2. Thiamine, folate and multivitamins daily through banana bag. 3. Gentle hydration recommended. 4. Monitor electrolytes and correct accordingly. 5. Continue with intensive care unit management. Jose Blanchard MD
--- NOTE | 2018-01-02 08:41 | CON ---
DATE: 12/31/2017 PULMONARY CONSULTATION REASON FOR CONSULTATION: We were asked by Dr. West, faith doctor to evaluate and help manage this 52-year-old man who is admitted to Intensive Care Unit at [facility] and intubated with continued seizure activity. HISTORY OF PRESENT ILLNESS: The patient presented [place] cruise ship. He was drinking over a week and started having seizures approximately 24 hours prior to that. He was admitted to Intensive Care Unit and intubated for airway protection. The seizures could be due to delirium. The patient was started on antibiotic for possible aspiration pneumonia and started on alcohol withdrawal protocol as well as intense treatment for seizures. PAST MEDICAL HISTORY: Not known at this time. ALLERGIES: HE IS ALLERGIC TO PENICILLIN AND ATIVAN, LORAZEPAM? SOCIAL HISTORY: The patient has a past history of drug abuse as well as alcohol abuse. The history of smoking is not certain. FAMILY HISTORY: No history of inherited diseases. REVIEW OF SYSTEMS: Unable to obtain at this time. All emergency room as well and the Intensive Care documentation is not containing review of systems since the patient is intubated and sedated. PHYSICAL EXAMINATION: VITAL SIGNS: His temperature is 98, pulse 120, respirations 20, blood pressure 134/87. SKIN: Warm and dry. No acute skin rash. HEENT: Head, ears, nose and throat normocephalic and atraumatic. Pupils reactive to light. NECK: Supple with no jugular vein distentions. CARDIOVASCULAR: S1, S2. Tachycardia. PULMONARY: Few scattered rhonchi. No wheezing. Otherwise, normal exam. GASTROINTESTINAL: Soft, nontender. No organomegaly. EXTREMITIES: No pedal edema. No deformities. NEUROLOGIC: Unable to evaluate at this time. SKIN: Dry; intact LABORATORY DATA: Initial laboratory data revealed WBC count of 9, hemoglobin of 11.3, platelet count is 337,000. VBG prior to intubation revealed slight decrease in pH of 7.29, high pO2 of 69 for VBG and pCO2 of 60. His sodium was reduced to 120. There is mild elevation of liver function test. Chest x-ray demonstrated bilateral basal atelectasis. ASSESSMENT: 1. Ventilator-dependent respiratory failure. 2. Rule out aspiration pneumonia. 3. Alcohol abuse with possible withdrawal. 4. Seizure activity. 5. Hyponatremia. PLAN: The patient is on ventilator. The FiO2 will be weaned gradually. He will continue on intravenous antibiotics. Chest x-ray will be monitored closely for signs of aspiration or any ventilator-related respiratory problems. This was discussed with Intensive Are Unit team. Reji Mcconnell MD ZHEN
[2018-01-02] MEDS ORDERED: Magnesium Sulfate 2 GM in Sodium Chloride 0.9% 100 ML IVPB SCH (09:15)
--- NOTE | 2018-01-02 09:47 | MRI ---
PROCEDURE: MRI BRAIN WITHOUT CONTRAST HISTORY: seizures COMPARISON: None. TECHNIQUE: Multiplanar, multisequence MR images of the brain were obtained without intravenous contrast enhancement. FINDINGS: HEMORRHAGE: None DWI: There is moderate increased signal intensity in the medial aspect of the right thalamus on diffusion imaging and FLAIR imaging. There is no corresponding abnormality seen on the ADC images. The findings are not typical of an acute infarct and may represent reversible ischemia or encephalitis. There are multiple possible viral etiologies. BRAIN PARENCHYMA: Mild chronic microvascular changes are seen in the periventricular white matter VENTRICLES: Unremarkable. No hydrocephalus. CRANIUM: Unremarkable. ORBITS: Grossly unremarkable. PARANASAL SINUSES/MASTOIDS: Clear VASCULAR SYSTEM: Skull base flow voids intact. OTHER FINDINGS: None. IMPRESSION: There is moderate increased signal intensity in the medial aspect of the right thalamus on diffusion imaging and FLAIR imaging. There is no corresponding abnormality seen on the ADC images. The findings are not typical of an acute infarct and may represent reversible ischemia or encephalitis. There are multiple possible viral etiologies. Clinical correlation is suggested
[2018-01-02] MEDS ORDERED: Enoxaparin 40 mg Syringe SC SCH (10:00)
[2018-01-02] MEDS: Midazolam 100 mg/100ml in NS 100 MG/100 ML SOL IV PRN (10:33)
[2018-01-02] MEDS ORDERED: VALPROATE IVPB STA (10:44)
[2018-01-02] MEDS ORDERED: SODIUM CHLORIDE 0.9% IVPB STA (10:44)
[2018-01-02] MEDS ORDERED: SODIUM CHLORIDE 0.9% IVPB SCH (10:45)
[2018-01-02] MEDS ORDERED: VALPROATE IVPB SCH (10:45)
--- NOTE | 2018-01-02 11:10 | PN ---
DATE: 01/02/2018 PULMONARY PROGRESS NOTE LOCATION: 129, bed 7. SUBJECTIVE: The patient remains on ventilator in the critical care unit. He was placed back on the ventilator after being on CPAP. His status is appears to be stable at this time, although I am waiting to discuss this case with the room manager in the unit this morning. PHYSICAL EXAMINATION: VITAL SIGNS: Stable. He is afebrile, pulse of 100, respiratory rate 20, pulse ox 100% on mechanical ventilation. Blood pressure 140/90. HEENT: Normocephalic, atraumatic. Intubated. NECK: Supple. No JVD. No lymphadenopathy. CARDIOVASCULAR: Regular rhythm. S1, S2 without murmur, gallop or rub. LUNGS: Good air entry. No rales, rhonchi or wheezing appreciated. ABDOMEN: Soft. Bowel sounds normoactive without mass, guarding, rebound or organomegaly. EXTREMITIES: No clubbing, cyanosis or edema. NEUROLOGICAL: No focal findings. There were no seizures noted at this time. SKIN: Dry; intact LABORATORY STUDIES: Chest x-ray this morning shows no acute changes. ASSESSMENT: 1. Acute respiratory failure. 2. Severe seizure disorder. 3. Going down delirium tremens? 4. Anemia. 5. Status post pulmonary vascular congestion. PLAN: Continue vigorous respiratory support. There is no intrinsic pulmonary abnormalities that I can see from chest x-ray and physical exam. We will discuss this case with the room manager today and decide on appropriate follow-up. Continue vigorous supportive care at this time. We will follow closely with you. Please feel free to call me if I can be of any further assistance during the day. Thank you for the opportunity to help in the care of Mr. Chopra. Tyrese Tinsley MD MTDD
[2018-01-02] MEDS: levETIRAcetam 1,000 MG in Sodium Chloride 0.9% 100 ML IV SCH ×2 (11:21→22:00)
--- NOTE | 2018-01-02 11:57 | RAD ---
HISTORY: assess NGT placement COMPARISON: 01/02/2018 at 4:59 a.m. FINDINGS: LUNGS: Limited chest radiograph. Lateral at the right lung not included in this examination. Lung apices not included in this examination. No pulmonary infiltrate appreciated. PLEURA: No significant pleural effusion identified, no pneumothorax apparent. CARDIOVASCULAR: Normal heart size. ET tube and right IJ central venous catheter unchanged. NG tube extends to left upper quadrant of abdomen. OSSEOUS STRUCTURES: No significant abnormalities. VISUALIZED UPPER ABDOMEN: Normal. OTHER FINDINGS: None. IMPRESSION: Nasogastric tube extends to left upper quadrant of abdomen. Limited examination.
[2018-01-02] MEDS ORDERED: Thiamine 500 MG in Sodium Chloride 0.9% 100 ML IM SCH (12:08)
[2018-01-02] MEDS ORDERED: Thiamine 100 MG in Sodium Chloride 0.9% 100 ML IM SCH (12:08)
[2018-01-02] MEDS ORDERED: Thiamine 100 mg/ml Inj IV SCH (12:15)
[2018-01-02] MEDS ORDERED: Lidocaine 1% Inj (20ml) IJ STA (12:20)
--- NOTE | 2018-01-02 13:08 | PCM.PROC ---
Procedures Attestation:: I certify that I have explained the specified Operation(s) or Procedure(s), risks, benefits and reasonable alternatives to the Patient and/or other person responsible. The opportunity was given to ask questions and all questions answered - Lumbar Puncture Consent Obtained: Written Consent (from , patient sedated/intubated and unable to consent himself) Time Out Performed: Yes Patient Position: Left Lateral Decubitius Skin Prep: 0.5% Chlorhexidine/Alcohol Local Anesthetic Used: Lidocaine 1% Amount of Anesthesia Used (mls): 5 Spinal Needle Gauge: 20G Interspace Used: L4-L5, L3-L4 Complications: Unable to obtain CSF Additional comments: Consent obtained from , as patient unable to consent himself due to sedation /intubation and AMS. Risks and benefits explained at length to , who expressed understanding and agreed to procedure (consent form witnessed by nursing and placed in chart). Patient placed in left lateral recumbent position , site sterilized with chlorhexidine, and then drapped. Sterile procedure ( including gowning and sterile gloves) emplyed. Access attempted at L4-5 interspace, then at L3-4 interspace; access obtained at both sites, but no CSF was able to be obtained. Procedure unsuccessful.
--- NOTE | 2018-01-02 14:02 | PN ---
DATE: 01/02/2018 SUBJECTIVE: I saw Tino resting comfortably in bed. He is on the ventilator. His is present. He is from the cruise ship. Maybe some of the DTs have lessened. It is not as much as the day before. He has been off alcohol for 3-4 days now. MEDICATIONS: He is on Ativan, Precedex, Keppra, Lanoxin, Lovenox, IV fluids, magnesium replacement, norepinephrine, propofol, Protonix, midazolam and acyclovir. PHYSICAL EXAMINATION: VITAL SIGNS: He has a 100.9 temp, 102 pulse, 142/77 blood pressure, 100% O2 sat on ventilator. HEENT: His head is atraumatic, normocephalic. HEART: Regular rate. LUNGS: Decreased breath sounds, but clear. ABDOMEN: Soft. EXTREMITIES: No edema. Not a tremor this morning, better than yesterday. LABORATORY DATA: He has a 6.4 white count, 8.3 hemoglobin, 24.2 hematocrit with a 264 platelets. Lactate last one was 1.5, better. He has 131 sodium; potassium 3.3, I will replace the potassium; BUN 3; creatinine 0.5; GFR is greater than 60; sugar is 99; calcium is 7.7; phosphorus 3.2; magnesium 1.2; total bili is 0.8. AST is 67, ALT is 37, alkaline phosphatase 197, total protein is 5.5. HIV is negative. Hepatitis is negative. Legionella is negative. ASSESSMENT AND PLAN: He is being seen by the hot tamale man, Neurology, Pulmonary, Cardiology. He has a whole bunch of problems going on. Last chest x-ray showed no active disease. We are trying to extubate him today if possible. He had seizures, low sodium. He is an alcoholic with alcohol abuse. Now, he is going through withdrawal. We will continue with aggressive treatment and care and hopefully, we can extubate. Julian West DO
[2018-01-02] MEDS ORDERED: Acetaminophen 160 mg/5 ml UD PO PRN (14:07)
[2018-01-02] MEDS ORDERED: Thiamine 500 MG in Sodium Chloride 0.9% 100 ML IV ONE (14:30)
--- NOTE | 2018-01-02 15:26 | PN ---
DATE: 01/02/2018 CARDIOLOGY FOLLOWUP SUBJECTIVE: The patient remains on a ventilator. PHYSICAL EXAMINATION: VITAL SIGNS: Blood pressure is 135/84, the heart rate is in the 100s. NECK: Negative JVD. LUNGS: Decreased breath sounds. HEART: Reveal S1, S2 with a 2/6 systolic murmur. EXTREMITIES: Without edema. LABORATORY DATA: Hemoglobin is 8.3. Chemistries: BUN and creatinine unremarkable. Echocardiogram reveals a dilated cardiomyopathy. EF is difficult to determine. Significant mitral regurgitation is noted. IMPRESSION: 1. Respiratory failure. 2. Recurrent seizures. 3. Dilated cardiomyopathy. 4. Mitral regurgitation. 5. Respiratory failure. 6. Alcoholism. PLAN: Given these findings, I have discussed with the family about the compromised left ventricle as well as mitral regurgitation. Apparently, this is old news to them. This was discussed with them at home and is being followed by their own doctors. Hakeem Bassett MD
[2018-01-02] MEDS: Vancomycin 1gm in NS 250ml 1 GM/250 ML BAG IVPB SCH (15:42)
--- NOTE | 2018-01-02 16:45 | CP.PCM.PN ---
Subjective - Date & Time of Evaluation Date of Evaluation: 01/02/18 Time of Evaluation: 16:41 - Subjective Subjective: Nephrology Consultation Note Assessment: Critical Hypokalemia hyponatremia hypomagnesemia Chronic alcohol Abuse with DTs Altered mental status Seizure and? Meningitis/encephalitis Acute respiratory failure Anemia Plan No acute need for renal replacement therapy at this time. BP controlled Monitor Input/Output, daily weights and renal function with basic metabolic panel Supplement Electrolytes as you're doing Avoid correction of serum sodium more than 6-8 meq per 24 hours No need for hypertonic saline at this time Continue with normal saline for fluid resuscitation Dose meds/antibiotics for normal GFR. Glycemic control Further work up for as per primary team Thanks for allowing me to participate in care of your patient. Will follow patient with you. Please call if any Qs. d/w ICU team Dr Graham Reynoso Office: [phone] Subjective: Noted events overnight. Patients remains intubated Physical Examination: General Appearance: Comfortable, Ill-appearing patient is orally intubated and mechanically ventilated Vitals reviewed and noted as below Head; Atraumatic, normocephalic ENT: intubated Neck; supple no lymphadenopathy, no thyromegaly or bruit Lungs: Normal respiratory rate/effort. Breath sounds bilateral equal and clear Heart: Increased rate. s1s2 normal. No rub or gallop. Extremities: no edema. No varicose veins Neurological: Patient is sedated Skin: Warm and dry. Normal turgor. No rash. Palpitation: Normal elasticity for age Abdomen: Abdomen is soft. Bowel sounds +. There is no abdominal tenderness, no guarding/rigidity no organomegaly Psych: unable MSK: no joint tenderness or swelling. Digits and nails normal, no deformity : kidney or bladder not palpable Labs/imaging reviewed. Past medical history, past surgical history, family history, social history, allergy reviewed and noted as below Family hx: no hx of CKD. Rest non-contributory Workup urine sodium 64 urine osmol 354 Objective - Vital Signs/Intake and Output Vital Signs (last 24 hours): Temp Pulse Resp BP Pulse Ox 100.9 F H 111 H 16 135/84 100 01/02/18 04:00 01/02/18 09:18 01/02/18 09:04 01/02/18 09:04 01/02/18 08:00 Intake and Output: 01/02/18 01/02/18 06:59 18:59 Intake Total 2161 Output Total 1500 Balance 661 - Medications Medications: Current Medications Acetaminophen (Tylenol 160mg/5ml Oral Soln) 320 mg PO Q4 PRN PRN Reason: Fever >100.4 F Multivitamins/Vitamin C 10 ml/Folic Acid 1 mg/ Thiamine HCl 100 mg/ Sodium Chloride 1,011.2 mls @ 50 mls/hr IV .[id number] [facility] Last Admin: 01/01/18 09:43 Dose: 50 mls/hr Acyclovir 750 mg/ Sodium (Chloride) 100 mls @ 100 mls/hr IV Q8 [facility] PRN Reason: Protocol Stop: 01/09/18 11:01 Last Admin: 01/02/18 14:03 Dose: 100 mls/hr Sodium Chloride (Sodium Chloride 0.9%) 1,000 mls @ 100 mls/hr IV .Q10H [facility] Last Admin: 01/02/18 06:14 Dose: 100 mls/hr Midazolam 100 mg/100ml in NS (Midazolam 100 Mg/100ml In Ns) 100 mg in 100 mls @ 1 mls/hr IV .Q24H PRN; Protocol; 1 MG/HR PRN Reason: Sedation/Seizures Last Admin: 01/02/18 10:33 Dose: 1 mg/hr, 1 mls/hr Levetiracetam 1,000 mg/ Sodium (Chloride) 110 mls @ 460 mls/hr IV Q12 [facility] Last Admin: 01/02/18 11:21 Dose: 460 mls/hr Propofol (Diprivan) 1,000 mg in 100 mls @ 1.569 mls/hr IV .Q24H PRN; Protocol; 5 MCG/KG/MIN PRN Reason: TITRATE PER MD ORDER Thiamine HCl 500 mg/ Sodium (Chloride) 105 mls @ 202 mls/hr IV DAILY [facility] Vancomycin HCl (Vancomycin 1gm) 1 gm in 250 mls @ 167 mls/hr IVPB Q12H [facility] PRN Reason: Protocol Last Admin: 01/02/18 15:42 Dose: 167 mls/hr Meropenem 1,000 mg/ Sodium (Chloride) 50 mls @ 100 mls/hr IVPB Q8 [facility] PRN Reason: Protocol Stop: 01/02/18 22:29 Last Admin: 01/02/18 15:44 Dose: 100 mls/hr Lorazepam (Ativan) 1 mg IVP Q4H PRN; Protocol PRN Reason: Seizures Last Admin: 01/01/18 19:56 Dose: 1 mg Pantoprazole Sodium (Protonix Inj) 40 mg IVP DAILY [facility] Last Admin: 01/02/18 10:22 Dose: 40 mg - Labs Labs: 01/02/18 05:00 01/02/18 05:00 PT 14.4 SECONDS (9.4-12.5) H 12/31/17 04:26 INR 1.26 (0.93-1.08) H 12/31/17 04:26 APTT 38.1 Seconds (25.1-36.5) H 12/31/17 04:26
[2018-01-02] MEDS: Acetaminophen 650mg/20.3ml solution UD PO PRN (17:07)
[2018-01-02] MEDS: Propofol 10 mg/ml 1,000 MG/100 ML VIAL IV PRN (19:00)
--- NOTE | 2018-01-02 20:30 | PN ---
DATE: 12/30/2017 NEUROLOGY FOLLOWUP CHIEF COMPLAINT: Followup for seizures. SUBJECTIVE: The patient is seen and examined at bedside with attempt to wean off sedation, but the patient started having tremulous activity in the extremities as well as mild seizures. EEG showed paroxysmal activity intermittently with diffuse slowing with underlying seizure-like activity. The patient's sodium today is 131, which is trending upwards from before. MRI of the brain showed no acute intracranial abnormality except for some increased signal in the medial aspect of the right thalamus on diffusion weighted images, which is slightly consistent possibly with acute encephalopathy rather than encephalitis. The patient did have some multiple episodes of increased temperatures in terms of fevers and a lumbar puncture was tried twice at bedside, but difficult to do by the glass washer team; therefore, will be placed under fluoroscopy tomorrow for a lumbar puncture. The patient is on prophylactic antibiotics such as antivirals, meropenem and vancomycin. The patient is currently on levetiracetam, has been increased to 1000 mg IV every 12 hours and one dose of valproic acid per kg was given x1 dose. PAST MEDICAL HISTORY: SIADH, on replacement; history of alcohol withdrawal seizures years ago, history of chronic alcoholism. SOCIAL HISTORY: Drinks about 18 [employer]ite per day in terms of beer. No illicit drug use. Former smoker. MEDICATIONS: Reviewed by nurses' reconciliation sheet. REVIEW OF SYSTEMS: Difficult to obtain due to the patient's underlying altered mental status. ALLERGIES: ALLERGIC TO LORAZEPAM AND PENICILLIN. FAMILY HISTORY: Noncontributory. PHYSICAL EXAMINATION: VITAL SIGNS: Temperature is 100, blood pressure of 135/84, placed on mechanical ventilation, FiO2 of 40. GENERAL: The patient is intubated, on sedation. HEENT: Atraumatic and normocephalic. PERRLA. Extraocular muscles are intact. NECK: Supple. No JVD. No adenopathy noted. LUNGS: Decreased breath sounds bilaterally. HEART: S1 and S2. Normal rate and rhythm. No murmurs, rubs, or gallops. ABDOMEN: Soft, nontender, and nondistended. Bowel sounds present. EXTREMITIES: No clubbing, no cyanosis. Peripheral pulses 2+ felt bilaterally. NEUROLOGIC: The patient is lethargic, intubated, on sedation. When off sedation, gets mildly restless. Cranial nerves II through XII intact. Motor: Normal tone. Moves all extremities spontaneously when off sedation. Sensory: Withdraws to localized and noxious stimulus, on sedation. DTRs are 2+ throughout. Coordination: Gait is deferred for now. LABORATORY DATA: Sodium is 131, potassium 3.2, chloride 97, carbon dioxide 24, BUN of 3, creatinine 0.5 and glucose of 99. ASSESSMENT AND PLAN: This is a 52-year-old man who is chronic alcoholic, drinks about 18 mL of beer per day, has dilated cardiomyopathy from chronic ethanol with ejection fraction of 25%, hypertension, syndrome of inappropriate antidiuretic hormone, noncompliant with replacement, history of alcohol withdrawal seizure years ago, history of chronic enlarged left pupil compared to the right, had breakthrough seizures, generalized tonic-clonic type. He was intubated and was sedated and was given high doses of antiepileptics as well as sedation. We are going to try to wean off and even on Precedex, he had some breakthrough seizures and has tremulous activities, which is consistent with delirium tremens. His seizures are most likely secondary to metabolic derangements such as hyponatremia with chronic ethanol use/withdrawal leading to delirium tremens, which is a risk for mortality superimposed underlying syndrome of inappropriate antidiuretic hormone. He also has dilated cardiomyopathy, Cardiology is on board. At this time, we would recommend, 1. Continue with Keppra, to be increased from 750 to 1000 IV every 12 hours and give one dose of sodium valproate per kg x1 dose. Seizure prophylaxis, switching back to propofol and slowly wean off slowly. 2. IV thiamine 500 mg given his increased diffusion in the right thalamus on MRI of brain. 3. Lumbar puncture under fluoroscopy since it was failed at bedside by intervention team and send off for CSF HSV, CSF NMDA, CSF CMV as well as cell count and differential with protein. 4. Monitor with prophylactic antibiotics of acyclovir, vancomycin, meropenem for questionable encephalitis. 5. Monitor electrolytes and correct accordingly. Continue intensive care management. Jose Blanchard MD
--- NOTE | 2018-01-02 21:02 | PN ---
DATE: 01/02/2018 SUBJECTIVE: The patient is in bed, in no acute distress, nontoxic, remains intubated on the ventilator. He did have low-grade fevers today and several episodes of seizures. PHYSICAL EXAMINATION: VITAL SIGNS: Temperature is 100.9, heart rate of 111, respiratory rate on the vent, blood pressure is 135/80. HEENT: Reveals ET tube in place. NECK: Supple. LUNGS: Have decreased breath sounds. HEART: Normal S1 and S2. ABDOMEN: Soft, nontender. LABORATORY DATA: Reveals a white count of 6.4, hemoglobin of 8, platelets of 264. BUN is 30, creatinine of 0.5. Urinalysis is noted. Serology is negative. Microbiology reveals the blood cultures are negative, urine cultures are negative, nares MRSA is negative. Sputum culture with yeast. The patient's procalcitonin is reported to be at 0.23. The patient had MRI of the brain yesterday, read by Dr. Rice which reveals moderate increased signal intensity in the medial aspect of right thalamus on diffusion imaging or FLAIR imaging, there is no corresponding abnormality on the ADC images. The findings are not typical of an acute infarct and may represent reversible ischemia or encephalitis. Multiple possible viral etiologies. The patient also had a chest x-ray this morning with no active lung disease. ASSESSMENT AND PLAN: This is a 52-year-old male who was seen early this morning. The patient was on a cruise ship. The patient was perfectly fine right up to the time until he had seizures. He has not had any change in mental status, no strange behavior, no headaches, no fevers. He was admitted with alcohol withdrawal seizures. The patient has long history of chronic alcohol use. His states that she was making him drink less alcohol on the cruise ship. Now, with respiratory failure, intubated on the ventilator with systemic inflammatory response syndrome. Today is day #3 of acyclovir and now with a new fever this morning of 100.9. Repeat blood cultures, urine cultures, sputum culture, urinalysis, procalcitonin. Continue acyclovir, day #3. Awaiting for spinal tap results and cerebrospinal fluid for PCR for herpes and we will empirically start vancomycin and meropenem pending repeat culture results and procalcitonin. He does have a new fever and systemic inflammatory response syndrome. We will follow closely with you on this patient who continues to have seizures, most likely alcohol related. MRI results are reviewed. The patient also has dilated cardiomyopathy, most likely from alcoholism, recurrent history of seizures, mitral regurgitation, and alcoholism. Kumar Garvin MD
[2018-01-02] MEDS ORDERED: Aztreonam 1 Gm in NS 100mL 100 ML IVPB SCH (22:00)
[2018-01-03] MEDS: Acetaminophen 650mg/20.3ml solution UD PO PRN
[2018-01-03] MEDS: Vancomycin 1gm in NS 250ml 1 GM/250 ML BAG IVPB SCH ×2 (02:21→15:25)
[2018-01-03] MEDS: Meropenem IV 1 gm in NS 50 ML IVPB SCH ×3 (05:18→21:02)
[2018-01-03 05:22] LABS: ARTERIAL BLOOD GAS HCO3 25.7 mmol/L (21-28); ARTERIAL BLOOD GAS HEMOGLOBIN 7.9 g/dL (11.7-17.4); ARTERIAL BLOOD GAS O2 CAPACITY 11.3 mL/dl (16-24); ARTERIAL BLOOD GAS O2 CONTENT 11.3 ML/dl (15-23); ARTERIAL BLOOD GAS PCO2 33 mm/Hg (35-45); ARTERIAL BLOOD GAS TCO2 26.7 mmol.L (22-28)
[2018-01-03 07:09] LABS: BASO # 0.04 K/mm3 (0.0-2.0); BASO % 0.8 % (0.0-3.0); EOS # 0.1 (0.0-0.7); EOS % 1.9 % (1.5-5.0); GRAN # 2.52 (1.4-6.5); GRAN % 52.4 % (50.0-68.0); HEMOGLOBIN 7.8 g/dL (14.0-18.0); LYMPH # 1.3 (1.2-3.4); MEAN CELL VOLUME 103.2 fl (80.0-105.0); MEAN CORPUSCULAR HEMOGLOBIN 35.3 pg (25.0-35.0); MEAN CORPUSCULAR HGB CONC 34.2 g/dl (31.0-37.0); MEAN PLATELET VOLUME 8.5 fl (7.0-11.0); MONO # 0.9 (0.1-0.6); MONO % 17.9 % (1.0-6.0); RBC 2.21 10^6/uL (3.5-6.1); RED CELL DISTRIBUTION WIDTH 16.5 % (11.5-14.5); WHITE BLOOD COUNT 4.8 10^3/ul (4.5-11.0)
[2018-01-03 07:57] LABS: ALB/GLOB RATIO 0.8 (1.1-1.8); ALBUMIN 2.1 g/dL (3.0-4.8); ALT/SGPT 38 U/L (7-56); AST/SGOT 94 U/L (17-59); BLOOD UREA NITROGEN 2 mg/dL (7-21); CALCIUM 7.3 mg/dL (8.4-10.5); GFR AFRICAN-AMERICAN > 60; GFR NON-AFRICAN AMERICAN > 60
[2018-01-03] MEDS ORDERED: Potassium Chloride 40 mEq/30 ml LIQ UD NG ONE (08:00)
[2018-01-03] MEDS: Sodium Chloride 0.9% 1,000 ML IV SCH (08:23)
[2018-01-03] MEDS ORDERED: Magnesium Sulfate 1 gm in D5W 1 GM/100 ML BAG IVPB ONE (08:25)
[2018-01-03] MEDS: Magnesium 2 gm/50 ml NS 2 GM/50 ML BAG IVPB SCH ×2 (08:27→09:09)
--- NOTE | 2018-01-03 10:03 | EEG ---
DATE: 01/02/2018 ELECTROENCEPHALOGRAM CONDITION OF THE RECORDING: Sleep. DIAGNOSIS: Seizure. MEDICATIONS: Reviewed by nurse per reconciliation sheet. INTERPRETATION: This is a 16-channel international recording. The background activity was composed of 6 to 7 cycles per second. There was small amount of beta activity of 16 to 20 cycles per second seen in this recording. There was increased amount of theta activity of 5 to 7 cycles per second seen during this tracing. Drowsiness was characterized by mixed beta and theta activities. The sleep was characterized by vertex transient waves, sleep spindles and bilateral slowing. Photic stimulation showed no changes in the tracing. There was intermittent episodes of high voltage paroxysmal activity associated with diffuse slowing consistent with underlying epileptic changes. There was also some underlying muscle artifact throughout the recording. CONCLUSION: This is an abnormal EEG due to presence of paroxysmal activity followed by periods of slow waves consistent with some epileptogenic activity of moderate bilateral cerebral dysfunction. Please clinically correlate. Jose Blanchard MD
[2018-01-03] MEDS: levETIRAcetam 1,000 MG in Sodium Chloride 0.9% 100 ML IV SCH ×2 (10:35→22:10)
[2018-01-03] MEDS: Thiamine 500 MG in Sodium Chloride 0.9% 100 ML IV SCH (10:36)
--- NOTE | 2018-01-03 11:17 | PN ---
DATE: 01/03/2018 PULMONARY PROGRESS NOTE SUBJECTIVE: The patient was seen and examined in the Intensive Care Unit on a ventilator. Events of last 24 hours reviewed. The patient remains ventilator dependent. There is no apparent seizure activity. PHYSICAL EXAMINATION: VITAL SIGNS: His temperature is 99, pulse is 92, respirations 20-24, blood pressure is 111/63, the oxygen saturation is between 96 and 100. The highest temperature in the last 24 hours was 100.9. HEENT: Examination of head normocephalic and atraumatic. NECK: Supple with no jugular vein distentions. CHEST: Symmetrical. CARDIOVASCULAR: S1, S2. No S3. Regular. PULMONARY: Intubated on 40% FiO2 with current oxygen saturation of 100. GASTROINTESTINAL: Soft, nontender. No organomegaly. EXTREMITIES: No pedal edema. SKIN: Clear with no skin rashes, no cyanosis. NEUROLOGIC: No focal deficits. ASSESSMENT: 1. Acute respiratory failure. 2. Possible delirium tremens. 3. Aspiration pneumonia, resolving. 4. Continuing fevers. PLAN: I have reviewed the patient's arterial blood gas, currently shows pH of 7.5 with pCO2 of 33 and pO2 of 183. The rest of laboratory data reveals low potassium level of 2.7, which is being corrected. His liver function tests came back to close to normal levels. Creatinine is 0.4. WBC is 4.8, hemoglobin is 7.8. Await improvement in neurologic status prior to another extubation attempt. This was discussed with the ICU team. Reji Mcconnell MD
--- NOTE | 2018-01-03 11:48 | PN ---
DATE: 01/03/2018 SUBJECTIVE: I saw him in the Intensive Care Unit. He is still on the ventilator. He is having a very rough time. He is still having seizure activity yesterday. He is on acyclovir, Ativan, Diprivan, levetiracetam IV, magnesium replacement, Merrem IV, midazolam, potassium, Protonix, IV fluids, thiamine, acetaminophen and vancomycin. PHYSICAL EXAMINATION: VITAL SIGNS: He has a 99 temp, 92 pulse, 111/63 blood pressure, 100% O2 sat on ventilator. HEENT: Head is atraumatic, normocephalic. HEART: Regular rate. LUNGS: Decreased breath sounds, but clear. ABDOMEN: Soft. EXTREMITIES: No edema. LABORATORY DATA: He has a 4.8 white count, 7.8 hemoglobin, 22.8 hematocrit with 252 platelets. He has a 134 sodium; potassium is down to 2.7, he has got potassium replacement; BUN 2; creatinine 0.4; GFR is greater than 60; sugar is 96; calcium is 7.3; phosphorous 2.9; magnesium 1.4, it has been replaced; AST is 94, ALT is 38, alk phos is 190 and total protein is 4.9. ASSESSMENT AND PLAN: He is very ill. He is in the Intensive Care Unit on the ventilator. He has seizures, low sodium, diabetes, alcoholic withdrawal, acute respiratory failure, electrolyte imbalance and now he is anemic to the point where he might need to be transfused. I will call and talk with the gear shaper set up operator. Julian West DO
--- NOTE | 2018-01-03 12:13 | CP.CCUPN ---
<Hood Mathews - Last Filed: 01/03/18 12:32> CCU Subjective - Physician Review Subjective (Free Text): 01/02/18 11:22 Patient seen and examined at bedside in ICU. Back on propofol and versed for sedation due to witnessed seizures during EEG. Propofol increased to 40 due to witnessed twitching concerning for more seizure activity. Neuro aware, started on maintenance valproic acid tx. Pending Fluoro-guided lumbar puncture today. CCU Objective - Vital Signs / Intake & Output Vital Signs (Last 4 hours): Vital Signs Temp Pulse BP Pulse Ox 01/03/18 11:00 98.4 F 97 H 108/76 100 01/03/18 10:30 98.2 F 92 H 100 01/03/18 10:00 98.2 F 95 H 105/71 100 01/03/18 09:30 98.2 F 100 H 100 01/03/18 09:00 98.4 F 102 H 113/78 100 01/03/18 08:30 98.6 F 91 H 100 Intake and Output (Last 8hrs): Intake & Output 01/02/18 01/03/18 01/03/18 22:59 06:59 14:59 Intake Total 2118 2328 51 Output Total 1250 1025 Balance 868 1303 51 Intake: IV 1268 2018 51 Right Internal Jugular 1200 2018 Tube Feeding 310 Other 850 Output: Urine 1250 1025 Urethral (Terrell) 1250 1025 - Physical Exam Head: Positive for: Atraumatic, Normocephalic Pupils: Positive for: Other (pinpoint bilaterally) Extroacular Muscles: Positive for: Other (not moving, not avoiding direct light challenge). Negative for: EOMI Conjunctiva: Positive for: Normal. Negative for: Injected, Icteric Ears: Positive for: Normal Mouth: Positive for: Moist Mucous Membranes, Other (ETT in place) Pharnyx: Positive for: Normal Nose (External): Positive for: Atraumatic. Negative for: Abrasion, Laceration, Lesions Nose (Internal): Positive for: Normal Inspection, No Active Bleeding. Negative for: Epistaxis Neck: Positive for: Other (sedated/AMS, no appreciate spontaneous movement of neck appreciated, but passive ROM intact, no rigidity or abnormal barriers to movement appreciated) Respiratory/Chest: Positive for: Clear to Auscultation, Good Air Exchange, Other (mechanically ventilated, overbreathing ventilator). Negative for: Respiratory Distress, Accessory Muscle Use, Wheezes, Rales, Retracting, Rhonchi Cardiovascular: Positive for: Normal S1, S2, Peripheal Pulses Present (+1-2 radial and dorsalis pedis bilaterally), Tachycardic. Negative for: Regular Rate and Rhythm, Murmurs, Irregular Rhythm, Bradycardic Abdomen: Positive for: Normal Bowel Sounds, Other (unable to assess tenderness due to sedation/AMS, but no gross reaction or guarding on palpation). Negative for: Distention, Peritoneal Signs, Rebound, Feeding Tubes, Mass/Organomegaly Back: Positive for: Normal Inspection Upper Extremity: Positive for: Normal Inspection, NORMAL PULSES, Other (gross twitches of bilateral UE L>R intermittently, otherwise holding limbs flaccidly ) . Negative for: Cyanosis, Edema, Swelling, Erythema, Deformity Lower Extremity: Positive for: Normal Inspection, NORMAL PULSES, Other (gross twitches of bilateral LE L>R intermittently, otherwise holding limbs flaccidly ) . Negative for: Edema, Cyanosis, Tenderness, Swelling, Erythema, Deformity Neurological: Positive for: Other (sedated/AMS, gross twitches (L>R) appreciated intermittently, seizure-like activity with rapidly alternating horizontal eye-movement and diffuse body twiches (L>R) concurrently). Negative for: GCS=15 (GCS 7 (E2 V1t M4)) Skin: Positive for: Warm, Dry, Normal Color. Negative for: Rashes Psychiatric: Positive for: Other (Sedated/AMS, intubated, so unable to assess) - Medications Active Medications: Active Medications Generic Name Dose Route Start Last Admin Trade Name Freq PRN Reason Stop Dose Admin Acetaminophen 650 mg 01/02/18 16:48 01/03/18 00:00 Tylenol 650mg/20.3ml Solution Ud PO 650 mg Q6H PRN Administration Fever Acyclovir 750 mg/ Sodium 100 mls @ 100 mls/hr 12/31/17 11:00 01/03/18 05:19 Chloride IV 01/09/18 11:01 100 mls/hr Q8 SHERRIE Administration Protocol Sodium Chloride 1,000 mls @ 100 mls/hr 01/01/18 10:00 01/03/18 08:23 Sodium Chloride 0.9% IV 100 mls/hr .Q10H SHERRIE Administration Midazolam 100 mg/100ml in NS 100 mg in 100 mls @ 1 mls/hr 01/02/18 10:24 19:15 Midazolam 100 Mg/100ml In Ns IV 7 mg/hr .Q24H PRN 7 mls/hr Sedation/Seizures Titration Protocol 1 MG/HR Levetiracetam 1,000 mg/ Sodium 110 mls @ 460 mls/hr 01/02/18 10:45 01/03/18 10:35 Chloride IV 460 mls/hr Q12 SHERRIE Administration Propofol 1,000 mg in 100 mls @ 1.569 mls/hr 01/02/18 10:44 01/03/18 08:15 Diprivan IV 40 mcg/kg/min .Q24H PRN 12.553 mls/hr TITRATE PER MD ORDER Titration Protocol 5 MCG/KG/MIN Thiamine HCl 500 mg/ Sodium 105 mls @ 202 mls/hr 01/02/18 14:16 01/03/18 10: 36 Chloride IV 202 mls/hr DAILY SHERRIE Administration Vancomycin HCl 1 gm in 250 mls @ 167 mls/hr 01/02/18 14:15 01/03/18 02:21 Vancomycin 1gm IVPB 167 mls/hr Q12H SHERRIE Administration Protocol Meropenem 50 mls @ 100 mls/hr 01/03/18 06:00 01/03/18 05:18 Merrem Iv 1 Gm Premix IVPB 01/12/18 06:01 100 mls/hr Q8 SHERRIE Administration Protocol Potassium Chloride 20 meq in 100 mls @ 50 mls/hr 01/03/18 08:00 01/03/18 10: 17 Potassium Chloride 20 Meq/100 Ml IVPB 01/03/18 13:59 50 mls/hr Q2H SHERRIE Administration Valproate Sodium 400 mg/ 104 mls @ 100 mls/hr 01/03/18 11:33 Sodium Chloride IVPB Q12 SHERRIE Lorazepam 1 mg 01/01/18 16:58 01/02/18 19:19 Ativan IVP 1 mg Q4H PRN Administration Seizures Protocol Pantoprazole Sodium 40 mg 12/31/17 10:00 01/03/18 09:21 Protonix Inj IVP 40 mg DAILY SHERRIE Administration - Patient Studies Lab Studies: Microbiology Studies 01/02/18 18:45 Gram Stain - Final Trachasp Sputum Culture - Preliminary No growth. 01/02/18 11:00 Blood Culture - Preliminary Blood NO GROWTH AFTER 24 HOURS 12/30/17 18:20 Gram Stain - Final Sputum Induced Sputum Culture - Final Yeast Species Lab Studies 01/03/18 01/03/18 01/03/18 Range/Units 06:00 06:00 05:15 WBC 4.8 D (4.5-11.0) 10^3/ul RBC 2.21 L (3.5-6.1) 10^6/uL Hgb 7.8 L (14.0-18.0) g/dL Hct 22.8 L (42.0-52.0) % MCV 103.2 (80.0-105.0) fl MCH 35.3 H (25.0-35.0) pg MCHC 34.2 (31.0-37.0) g/dl RDW 16.5 H (11.5-14.5) % Plt Count 252 (120.0-450.0) 10^3/uL MPV 8.5 (7.0-11.0) fl Gran % 52.4 (50.0-68.0) % Lymph % (Auto) 27.0 (22.0-35.0) % Jones % (Auto) 17.9 H (1.0-6.0) % Eos % (Auto) 1.9 (1.5-5.0) % Baso % (Auto) 0.8 (0.0-3.0) % Gran # 2.52 (1.4-6.5) Lymph # (Auto) 1.3 (1.2-3.4) Jones # (Auto) 0.9 H (0.1-0.6) Eos # (Auto) 0.1 (0.0-0.7) Baso # (Auto) 0.04 (0.0-2.0) K/mm3 pCO2 33 L (35-45) mm/Hg pO2 183.0 H (80-100) mm/Hg HCO3 25.7 (21-28) mmol/L ABG pH 7.50 H (7.35-7.45) ABG Total CO2 26.7 (22-28) mmol.L ABG O2 Saturation 100.0 H (95-98) % ABG O2 Content 11.3 L (15-23) ML/dl ABG Base Excess 2.5 (-2.0-3.0) mmol/L ABG Hemoglobin 7.9 L (11.7-17.4) g/dL ABG Carboxyhemoglobin 1.5 (0.5-1.5) % POC ABG HHb (Measured) 0 (0-5) % ABG Methemoglobin 0.9 (0.0-3.0) % ABG O2 Capacity 11.3 L (16-24) mL/dl Hgb O2 Saturation 97.5 (95.0-98.0) % FiO2 40.0 % Sodium 134 (132-148) mmol/L Potassium 2.7 L* (3.6-5.0) mmol/L Chloride 99 (98-107) mmol/L Carbon Dioxide 27 (21-33) mmol/L Anion Gap 11 (10-20) BUN 2 L (7-21) mg/dL Creatinine 0.4 L (0.8-1.5) mg/dl Est GFR ( Amer) > 60 Est GFR (Non-Af Amer) > 60 Random Glucose 96 (70-110) mg/dL Calcium 7.3 L (8.4-10.5) mg/dL Phosphorus 2.9 (2.5-4.5) mg/dL Magnesium 1.4 L (1.7-2.2) mg/dL Total Bilirubin 0.5 (0.2-1.3) mg/dL AST 94 H D (17-59) U/L ALT 38 (7-56) U/L Alkaline Phosphatase 190 H (38-126) U/L Total Protein 4.9 L (5.8-8.3) g/dL Albumin 2.1 L (3.0-4.8) g/dL Globulin 2.8 gm/dL Albumin/Globulin Ratio 0.8 L (1.1-1.8) Procalcitonin (0.19-0.49) NG/ML 01/02/18 01/02/18 Range/Units 13:57 11:00 WBC (4.5-11.0) 10^3/ul RBC (3.5-6.1) 10^6/uL Hgb (14.0-18.0) g/dL Hct (42.0-52.0) % MCV (80.0-105.0) fl MCH (25.0-35.0) pg MCHC (31.0-37.0) g/dl RDW (11.5-14.5) % Plt Count (120.0-450.0) 10^3/uL MPV (7.0-11.0) fl Gran % (50.0-68.0) % Lymph % (Auto) (22.0-35.0) % Jones % (Auto) (1.0-6.0) % Eos % (Auto) (1.5-5.0) % Baso % (Auto) (0.0-3.0) % Gran # (1.4-6.5) Lymph # (Auto) (1.2-3.4) Jones # (Auto) (0.1-0.6) Eos # (Auto) (0.0-0.7) Baso # (Auto) (0.0-2.0) K/mm3 pCO2 (35-45) mm/Hg pO2 (80-100) mm/Hg HCO3 (21-28) mmol/L ABG pH (7.35-7.45) ABG Total CO2 (22-28) mmol.L ABG O2 Saturation (95-98) % ABG O2 Content (15-23) ML/dl ABG Base Excess (-2.0-3.0) mmol/L ABG Hemoglobin (11.7-17.4) g/dL ABG Carboxyhemoglobin (0.5-1.5) % POC ABG HHb (Measured) (0-5) % ABG Methemoglobin (0.0-3.0) % ABG O2 Capacity (16-24) mL/dl Hgb O2 Saturation (95.0-98.0) % FiO2 % Sodium (132-148) mmol/L Potassium (3.6-5.0) mmol/L Chloride (98-107) mmol/L Carbon Dioxide (21-33) mmol/L Anion Gap (10-20) BUN (7-21) mg/dL Creatinine (0.8-1.5) mg/dl Est GFR ( Amer) Est GFR (Non-Af Amer) Random Glucose (70-110) mg/dL Calcium (8.4-10.5) mg/dL Phosphorus 3.4 (2.5-4.5) mg/dL Magnesium 2.0 (1.7-2.2) mg/dL Total Bilirubin (0.2-1.3) mg/dL AST (17-59) U/L ALT (7-56) U/L Alkaline Phosphatase (38-126) U/L Total Protein (5.8-8.3) g/dL Albumin (3.0-4.8) g/dL Globulin gm/dL Albumin/Globulin Ratio (1.1-1.8) Procalcitonin 0.32 (0.19-0.49) NG/ML Laboratory Results - last 24 hr 01/02/18 01/02/18 01/03/18 11:00 13:57 05:15 WBC RBC Hgb Hct MCV MCH MCHC RDW Plt Count MPV Gran % Lymph % (Auto) Jones % (Auto) Eos % (Auto) Baso % (Auto) Gran # Lymph # (Auto) Jones # (Auto) Eos # (Auto) Baso # (Auto) pCO2 33 L pO2 183.0 H HCO3 25.7 ABG pH 7.50 H ABG Total CO2 26.7 ABG O2 Saturation 100.0 H ABG O2 Content 11.3 L ABG Base Excess 2.5 ABG Hemoglobin 7.9 L ABG Carboxyhemoglobin 1.5 POC ABG HHb (Measured) 0 ABG Methemoglobin 0.9 ABG O2 Capacity 11.3 L Hgb O2 Saturation 97.5 FiO2 40.0 Sodium Potassium Chloride Carbon Dioxide Anion Gap BUN Creatinine Est GFR ( Amer) Est GFR (Non-Af Amer) Random Glucose Calcium Phosphorus 3.4 Magnesium 2.0 Total Bilirubin AST ALT Alkaline Phosphatase Total Protein Albumin Globulin Albumin/Globulin Ratio Procalcitonin 0.32 01/03/18 01/03/18 06:00 06:00 WBC 4.8 D RBC 2.21 L Hgb 7.8 L Hct 22.8 L MCV 103.2 MCH 35.3 H MCHC 34.2 RDW 16.5 H Plt Count 252 MPV 8.5 Gran % 52.4 Lymph % (Auto) 27.0 Jones % (Auto) 17.9 H Eos % (Auto) 1.9 Baso % (Auto) 0.8 Gran # 2.52 Lymph # (Auto) 1.3 Jones # (Auto) 0.9 H Eos # (Auto) 0.1 Baso # (Auto) 0.04 pCO2 pO2 HCO3 ABG pH ABG Total CO2 ABG O2 Saturation ABG O2 Content ABG Base Excess ABG Hemoglobin ABG Carboxyhemoglobin POC ABG HHb (Measured) ABG Methemoglobin ABG O2 Capacity Hgb O2 Saturation FiO2 Sodium 134 Potassium 2.7 L* Chloride 99 Carbon Dioxide 27 Anion Gap 11 BUN 2 L Creatinine 0.4 L Est GFR ( Amer) > 60 Est GFR (Non-Af Amer) > 60 Random Glucose 96 Calcium 7.3 L Phosphorus 2.9 Magnesium 1.4 L Total Bilirubin 0.5 AST 94 H D ALT 38 Alkaline Phosphatase 190 H Total Protein 4.9 L Albumin 2.1 L Globulin 2.8 Albumin/Globulin Ratio 0.8 L Procalcitonin Review of Systems - Review of Systems Systems not reviewed;Unavailable: Intubated Critical Care Progress Note - Nutrition Nutrition: Nutrition Category Date Time Status NPO Diet [DIET] Diets 12/30/17 Dinner Ordered Assessment/Plan - Assessment and Plan (Free Text) Assessment: This is a 52 yo M with 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 Patient was intubated for airway protection and sedated. He was noted to have seizure-like activity, confirmed seizure on EEG, on Propofol/Versed, increased dosage of anti-epileptics as per Neuro, and is pending lumbar puncture to obtain CSF for further analysis. 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 as per ; pending CSF results and repeat cultures -As per Neuro and ID: will obtain serum and CSF HSV/CMV PCR, Legionella CSF test , and NMDA receptor antibody test -MRI brain obtained, concerning for possible encephalitis vs reversible ischemia at medial aspect right thalmus; as per Neuro also 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; continue Thiamine 500mg daily Cardio: -hx CAD and cardiomyopathy with EF 25% -cardiomyopathy likely 2/2 chronic alcohol abuse -Cardio following, appreciate all recs; echo ordered, repleting Mag/K -digoxin d/c due to risk for dig tox in persistent hypoK/hypoMag Pulm: -intubated and sedated, tolerated pressure support well but remains intubated due to mental status/questionable ability to protect airway -ABG this AM reviewed, improved paO2 and pH noted -CXR this AM reviewed, ETT in appropriate position -continue PRN suction due to secretions -maintain SaO2 > 90% and paO2 > 60 -VAP bundle, aspiration precautions -Pulm following, appreciate all recs GI: -NPO due to intubation -NGT in place -Protonix for GI ppx Renal: -making good urine output -monitor and replete electrolytes as needed; persistently losing K and Mg, aggressively repleting -Cr stable at 0.4 -Hx SIADH noncompliant with salt tab therapy; Na improved from 120 on admit to 131 this AM (was 132 yesterday) -Nephro consulted, appreciate all recs Heme: -no signs of acute bleeding -holding AC until lumbar puncture complete, can start on daily Lovenox after, SCDs until then -Hgb 7.8, no signs of bleeding ID: -no leukocytosis, Tmax overnight 100.6F -empirically on acyclovir/merrem/vanco as per ID, pending repeat culture workup given new temp -today doses 2 & 3 of vanco, will need trough before tomorrow AM dose -pending lumbar puncture for CSF analysis, testing as above as per Neuro and ID Dispo: In ICU, intubated/sedated on Propofol/Versed, pending lumbar puncture for CSF collection and analysis, remains on empiric Acyclovir/Merrem/Vanco pending results, new septic workup (cultures and procal) obtained FEN: NPO; Banana Bag 50cc/hr, NS 100cc/hr, Mag/K supplements as needed, Thiamine 500mg daily Access: peripheral IVs, R-IJ TLC; pending PICC line (will remove TLC after PICC placement) Consults: Neuro, Cardio, ID, Nephro, Pulm Ppx: Protonix for GI, SCDs for DVT pending Lovenox (after lumbar puncture complete) Patient seen, reviewed, and discussed with Attending, Dr. Riley <Steve Riley - Last Filed: 01/03/18 13:08> CCU Objective - Vital Signs / Intake & Output Vital Signs (Last 4 hours): Vital Signs Temp Pulse BP Pulse Ox 01/03/18 11:00 98.4 F 97 H 108/76 100 01/03/18 10:30 98.2 F 92 H 100 01/03/18 10:00 98.2 F 95 H 105/71 100 01/03/18 09:30 98.2 F 100 H 100 Intake and Output (Last 8hrs): Intake & Output 01/02/18 01/03/18 01/03/18 22:59 06:59 14:59 Intake Total 2118 2328 91 Output Total 1250 1025 Balance 868 1303 91 Intake: IV 1268 2018 91 Right Internal Jugular 1200 2018 Tube Feeding 310 Other 850 Output: Urine 1250 1025 Urethral (Terrell) 1250 1025 - Medications Active Medications: Active Medications Generic Name Dose Route Start Last Admin Trade Name Freq PRN Reason Stop Dose Admin Acetaminophen 650 mg 01/02/18 16:48 01/03/18 00:00 Tylenol 650mg/20.3ml Solution Ud PO 650 mg Q6H PRN Administration Fever Acyclovir 750 mg/ Sodium 100 mls @ 100 mls/hr 12/31/17 11:00 01/03/18 05:19 Chloride IV 01/09/18 11:01 100 mls/hr Q8 SHERRIE Administration Protocol Sodium Chloride 1,000 mls @ 100 mls/hr 01/01/18 10:00 01/03/18 08:23 Sodium Chloride 0.9% IV 100 mls/hr .Q10H SHERRIE Administration Midazolam 100 mg/100ml in NS 100 mg in 100 mls @ 1 mls/hr 01/02/18 10:24 19:15 Midazolam 100 Mg/100ml In Ns IV 7 mg/hr .Q24H PRN 7 mls/hr Sedation/Seizures Titration Protocol 1 MG/HR Levetiracetam 1,000 mg/ Sodium 110 mls @ 460 mls/hr 01/02/18 10:45 01/03/18 10:35 Chloride IV 460 mls/hr Q12 SHERRIE Administration Propofol 1,000 mg in 100 mls @ 1.569 mls/hr 01/02/18 10:44 01/03/18 12:26 Diprivan IV 40 mcg/kg/min .Q24H PRN 12.553 mls/hr TITRATE PER MD ORDER Administration Protocol 5 MCG/KG/MIN Thiamine HCl 500 mg/ Sodium 105 mls @ 202 mls/hr 01/02/18 14:16 01/03/18 10: 36 Chloride IV 202 mls/hr DAILY SHERRIE Administration Vancomycin HCl 1 gm in 250 mls @ 167 mls/hr 01/02/18 14:15 01/03/18 02:21 Vancomycin 1gm IVPB 167 mls/hr Q12H SHERRIE Administration Protocol Meropenem 50 mls @ 100 mls/hr 01/03/18 06:00 01/03/18 05:18 Merrem Iv 1 Gm Premix IVPB 01/12/18 06:01 100 mls/hr Q8 SHERRIE Administration Protocol Potassium Chloride 20 meq in 100 mls @ 50 mls/hr 01/03/18 08:00 01/03/18 12: 12 Potassium Chloride 20 Meq/100 Ml IVPB 01/03/18 13:59 50 mls/hr Q2H SHERRIE Administration Valproate Sodium 400 mg/ 104 mls @ 100 mls/hr 01/03/18 11:33 Sodium Chloride IVPB Q12 SHERRIE Lorazepam 1 mg 01/01/18 16:58 01/02/18 19:19 Ativan IVP 1 mg Q4H PRN Administration Seizures Protocol Pantoprazole Sodium 40 mg 12/31/17 10:00 01/03/18 09:21 Protonix Inj IVP 40 mg DAILY SHERRIE Administration - Patient Studies Lab Studies: Microbiology Studies 01/02/18 18:45 Gram Stain - Final Trachasp Sputum Culture - Preliminary No growth. 01/02/18 11:00 Blood Culture - Preliminary Blood NO GROWTH AFTER 24 HOURS 12/30/17 18:20 Gram Stain - Final Sputum Induced Sputum Culture - Final Yeast Species Lab Studies 01/03/18 01/03/18 01/03/18 Range/Units 06:00 06:00 05:15 WBC 4.8 D (4.5-11.0) 10^3/ul RBC 2.21 L (3.5-6.1) 10^6/uL Hgb 7.8 L (14.0-18.0) g/dL Hct 22.8 L (42.0-52.0) % MCV 103.2 (80.0-105.0) fl MCH 35.3 H (25.0-35.0) pg MCHC 34.2 (31.0-37.0) g/dl RDW 16.5 H (11.5-14.5) % Plt Count 252 (120.0-450.0) 10^3/uL MPV 8.5 (7.0-11.0) fl Gran % 52.4 (50.0-68.0) % Lymph % (Auto) 27.0 (22.0-35.0) % Jones % (Auto) 17.9 H (1.0-6.0) % Eos % (Auto) 1.9 (1.5-5.0) % Baso % (Auto) 0.8 (0.0-3.0) % Gran # 2.52 (1.4-6.5) Lymph # (Auto) 1.3 (1.2-3.4) Jones # (Auto) 0.9 H (0.1-0.6) Eos # (Auto) 0.1 (0.0-0.7) Baso # (Auto) 0.04 (0.0-2.0) K/mm3 pCO2 33 L (35-45) mm/Hg pO2 183.0 H (80-100) mm/Hg HCO3 25.7 (21-28) mmol/L ABG pH 7.50 H (7.35-7.45) ABG Total CO2 26.7 (22-28) mmol.L ABG O2 Saturation 100.0 H (95-98) % ABG O2 Content 11.3 L (15-23) ML/dl ABG Base Excess 2.5 (-2.0-3.0) mmol/L ABG Hemoglobin 7.9 L (11.7-17.4) g/dL ABG Carboxyhemoglobin 1.5 (0.5-1.5) % POC ABG HHb (Measured) 0 (0-5) % ABG Methemoglobin 0.9 (0.0-3.0) % ABG O2 Capacity 11.3 L (16-24) mL/dl Hgb O2 Saturation 97.5 (95.0-98.0) % FiO2 40.0 % Sodium 134 (132-148) mmol/L Potassium 2.7 L* (3.6-5.0) mmol/L Chloride 99 (98-107) mmol/L Carbon Dioxide 27 (21-33) mmol/L Anion Gap 11 (10-20) BUN 2 L (7-21) mg/dL Creatinine 0.4 L (0.8-1.5) mg/dl Est GFR ( Amer) > 60 Est GFR (Non-Af Amer) > 60 Random Glucose 96 (70-110) mg/dL Calcium 7.3 L (8.4-10.5) mg/dL Phosphorus 2.9 (2.5-4.5) mg/dL Magnesium 1.4 L (1.7-2.2) mg/dL Total Bilirubin 0.5 (0.2-1.3) mg/dL AST 94 H D (17-59) U/L ALT 38 (7-56) U/L Alkaline Phosphatase 190 H (38-126) U/L Total Protein 4.9 L (5.8-8.3) g/dL Albumin 2.1 L (3.0-4.8) g/dL Globulin 2.8 gm/dL Albumin/Globulin Ratio 0.8 L (1.1-1.8) Procalcitonin (0.19-0.49) NG/ML 01/02/18 01/02/18 Range/Units 13:57 11:00 WBC (4.5-11.0) 10^3/ul RBC (3.5-6.1) 10^6/uL Hgb (14.0-18.0) g/dL Hct (42.0-52.0) % MCV (80.0-105.0) fl MCH (25.0-35.0) pg MCHC (31.0-37.0) g/dl RDW (11.5-14.5) % Plt Count (120.0-450.0) 10^3/uL MPV (7.0-11.0) fl Gran % (50.0-68.0) % Lymph % (Auto) (22.0-35.0) % Jones % (Auto) (1.0-6.0) % Eos % (Auto) (1.5-5.0) % Baso % (Auto) (0.0-3.0) % Gran # (1.4-6.5) Lymph # (Auto) (1.2-3.4) Jones # (Auto) (0.1-0.6) Eos # (Auto) (0.0-0.7) Baso # (Auto) (0.0-2.0) K/mm3 pCO2 (35-45) mm/Hg pO2 (80-100) mm/Hg HCO3 (21-28) mmol/L ABG pH (7.35-7.45) ABG Total CO2 (22-28) mmol.L ABG O2 Saturation (95-98) % ABG O2 Content (15-23) ML/dl ABG Base Excess (-2.0-3.0) mmol/L ABG Hemoglobin (11.7-17.4) g/dL ABG Carboxyhemoglobin (0.5-1.5) % POC ABG HHb (Measured) (0-5) % ABG Methemoglobin (0.0-3.0) % ABG O2 Capacity (16-24) mL/dl Hgb O2 Saturation (95.0-98.0) % FiO2 % Sodium (132-148) mmol/L Potassium (3.6-5.0) mmol/L Chloride (98-107) mmol/L Carbon Dioxide (21-33) mmol/L Anion Gap (10-20) BUN (7-21) mg/dL Creatinine (0.8-1.5) mg/dl Est GFR ( Amer) Est GFR (Non-Af Amer) Random Glucose (70-110) mg/dL Calcium (8.4-10.5) mg/dL Phosphorus 3.4 (2.5-4.5) mg/dL Magnesium 2.0 (1.7-2.2) mg/dL Total Bilirubin (0.2-1.3) mg/dL AST (17-59) U/L ALT (7-56) U/L Alkaline Phosphatase (38-126) U/L Total Protein (5.8-8.3) g/dL Albumin (3.0-4.8) g/dL Globulin gm/dL Albumin/Globulin Ratio (1.1-1.8) Procalcitonin 0.32 (0.19-0.49) NG/ML Laboratory Results - last 24 hr 01/02/18 01/02/18 01/03/18 11:00 13:57 05:15 WBC RBC Hgb Hct MCV MCH MCHC RDW Plt Count MPV Gran % Lymph % (Auto) Jones % (Auto) Eos % (Auto) Baso % (Auto) Gran # Lymph # (Auto) Jones # (Auto) Eos # (Auto) Baso # (Auto) pCO2 33 L pO2 183.0 H HCO3 25.7 ABG pH 7.50 H ABG Total CO2 26.7 ABG O2 Saturation 100.0 H ABG O2 Content 11.3 L ABG Base Excess 2.5 ABG Hemoglobin 7.9 L ABG Carboxyhemoglobin 1.5 POC ABG HHb (Measured) 0 ABG Methemoglobin 0.9 ABG O2 Capacity 11.3 L Hgb O2 Saturation 97.5 FiO2 40.0 Sodium Potassium Chloride Carbon Dioxide Anion Gap BUN Creatinine Est GFR ( Amer) Est GFR (Non-Af Amer) Random Glucose Calcium Phosphorus 3.4 Magnesium 2.0 Total Bilirubin AST ALT Alkaline Phosphatase Total Protein Albumin Globulin Albumin/Globulin Ratio Procalcitonin 0.32 01/03/18 01/03/18 06:00 06:00 WBC 4.8 D RBC 2.21 L Hgb 7.8 L Hct 22.8 L MCV 103.2 MCH 35.3 H MCHC 34.2 RDW 16.5 H Plt Count 252 MPV 8.5 Gran % 52.4 Lymph % (Auto) 27.0 Jones % (Auto) 17.9 H Eos % (Auto) 1.9 Baso % (Auto) 0.8 Gran # 2.52 Lymph # (Auto) 1.3 Jones # (Auto) 0.9 H Eos # (Auto) 0.1 Baso # (Auto) 0.04 pCO2 pO2 HCO3 ABG pH ABG Total CO2 ABG O2 Saturation ABG O2 Content ABG Base Excess ABG Hemoglobin ABG Carboxyhemoglobin POC ABG HHb (Measured) ABG Methemoglobin ABG O2 Capacity Hgb O2 Saturation FiO2 Sodium 134 Potassium 2.7 L* Chloride 99 Carbon Dioxide 27 Anion Gap 11 BUN 2 L Creatinine 0.4 L Est GFR ( Amer) > 60 Est GFR (Non-Af Amer) > 60 Random Glucose 96 Calcium 7.3 L Phosphorus 2.9 Magnesium 1.4 L Total Bilirubin 0.5 AST 94 H D ALT 38 Alkaline Phosphatase 190 H Total Protein 4.9 L Albumin 2.1 L Globulin 2.8 Albumin/Globulin Ratio 0.8 L Procalcitonin Critical Care Progress Note - Nutrition Nutrition: Nutrition Category Date Time Status NPO Diet [DIET] Diets 12/30/17 Dinner Ordered Assessment/Plan - Assessment and Plan (Free Text) Plan: Patient seen and examined, on rounds, with resident, agree with note with following additions/exceptions: Patient is 52yo male with 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 Pt is currently intubated, ON propofol, and Versed. Neurology following. EEG done yesterday, showed seizure activity ID following Unsuccessful spinal tap attempted yesterday, no immediate complications noted. Will obtain flouro guided spinal tap MRI brain done, results noted rule out Meningitis/Encephalitis Seizure disorder DTs CAD EtOH abuse Hx of CVA AMS Recommend: - cont with vent support, low tidal vol ventilation - duonebs PRN - Antibiotics as per ID, Vanco, Merrem, Acyclovir - AEDs as per neurology - Propofol, Versed - monitor HH - monitor renal function - NS 80cc/hr - Ativan PRN - feeds - FS control - Flouro guided spinal tap - GI ppx, - DVT ppx, lovenox - Monitor in MICU Critical care time 30 minutes
[2018-01-03] MEDS: Propofol 10 mg/ml 1,000 MG/100 ML VIAL IV PRN ×2 (12:26→21:02)
--- NOTE | 2018-01-03 12:55 | PN ---
DATE: 01/03/2018 CARDIOLOGY FOLLOWUP SUBJECTIVE: The patient remains on a ventilator. PHYSICAL EXAMINATION VITAL SIGNS: Blood pressure is 111/63, the heart rate is in the 90s. NECK: Negative JVD. LUNGS: Without rales. HEART: Reveals S1 and S2. EXTREMITIES: Without edema. LABORATORY DATA: Hemoglobin is now down to 7.8. Chemistries: Potassium is 2.7. IMPRESSION: 1. Respiratory failure. 2. Dilated cardiomyopathy. 3. Marked anemia. 4. Recurrent seizures. 5. Mitral regurgitation. 6. History of alcoholism. PLAN: Given these findings, the patient's cardiac issues are chronic and the family does not want to address any of that since they have their voice network engineer at home who will be addressing it. aHkeem Bassett MD
--- NOTE | 2018-01-03 13:00 | RAD ---
HISTORY: intubated COMPARISON: 01/02/2018 FINDINGS: LUNGS: No active pulmonary disease. PLEURA: No significant pleural effusion identified, no pneumothorax apparent. CARDIOVASCULAR: Normal. OSSEOUS STRUCTURES: No significant abnormalities. VISUALIZED UPPER ABDOMEN: Normal. OTHER FINDINGS: The endotracheal tube, nasogastric tube and right IJ line are in satisfactory position IMPRESSION: No active disease.
[2018-01-03] MEDS ORDERED: VALPROATE IVPB SCH (14:00)
[2018-01-03] MEDS ORDERED: SODIUM CHLORIDE 0.9% IVPB SCH (14:00)
[2018-01-03] MEDS ORDERED: Lidocaine 1% Inj (20ml) ONE (14:15)
--- NOTE | 2018-01-03 15:10 | RAD ---
PROCEDURE: Fluoroscopically guided lumbar puncture HISTORY: encephalopathy, unable to bedside spinal tap COMPARISON: TECHNIQUE: Lumbar puncture was performed at the L4 level using sterile technique. The patient was in the prone position on the fluoroscopic table. FINDINGS: Lumbar puncture was successful on the 1st attempt. Clear colorless CSF was obtained. 12 cc of spinal fluid was collected. IMPRESSION: Successful lumbar puncture
[2018-01-03 15:13] LABS: FLUID TYPE SPINAL FLUID
[2018-01-03] MEDS: Midazolam 100 mg/100ml in NS 100 MG/100 ML SOL IV PRN (15:20)
[2018-01-03 16:22] LABS: CSF APPEARANCE CLEAR/COLORLESS (CLEAR); CSF VOLUME 5 mL (0-1)
--- NOTE | 2018-01-03 16:22 | CP.PCM.PN ---
Subjective - Date & Time of Evaluation Date of Evaluation: 01/03/18 Time of Evaluation: 16:22 - Subjective Subjective: Nephrology Consultation Note Assessment: Critical Hypokalemia hyponatremia hypomagnesemia Chronic alcohol Abuse with DTs Altered mental status Seizure and? Meningitis/encephalitis Acute respiratory failure Anemia Plan No acute need for renal replacement therapy at this time. BP controlled Monitor Input/Output, daily weights and renal function with basic metabolic panel Supplement Electrolytes K and Mag as you're doing Continue with normal saline for fluid resuscitation Dose meds/antibiotics for normal GFR. Glycemic control Further work up for as per primary team Thanks for allowing me to participate in care of your patient. Will follow patient with you. Please call if any Qs. d/w ICU team Dr Graham Reynoso Office: [phone] Subjective: Noted events overnight. Patients remains intubated Physical Examination: General Appearance: Comfortable, Ill-appearing patient is orally intubated and mechanically ventilated Vitals reviewed and noted as below Head; Atraumatic, normocephalic ENT: intubated Neck; supple no lymphadenopathy, no thyromegaly or bruit Lungs: Normal respiratory rate/effort. Breath sounds bilateral equal and clear Heart: Increased rate. s1s2 normal. No rub or gallop. Extremities: no edema. No varicose veins Neurological: Patient is sedated Skin: Warm and dry. Normal turgor. No rash. Palpitation: Normal elasticity for age Abdomen: Abdomen is soft. Bowel sounds +. There is no abdominal tenderness, no guarding/rigidity no organomegaly Psych: unable MSK: no joint tenderness or swelling. Digits and nails normal, no deformity : kidney or bladder not palpable Labs/imaging reviewed. Past medical history, past surgical history, family history, social history, allergy reviewed and noted as below Family hx: no hx of CKD. Rest non-contributory Workup urine sodium 64 urine osmol 354 Objective - Vital Signs/Intake and Output Vital Signs (last 24 hours): Temp Pulse Resp BP Pulse Ox 98.6 F 96 H 16 122/76 100 01/03/18 13:30 01/03/18 15:30 01/03/18 06:07 01/03/18 15:17 01/03/18 15:30 Intake and Output: 01/03/18 01/03/18 06:59 18:59 Intake Total 2435 91 Output Total 1025 Balance 1410 91 - Medications Medications: Current Medications Acetaminophen (Tylenol 650mg/20.3ml Solution Ud) 650 mg PO Q6H PRN PRN Reason: Fever Last Admin: 01/03/18 00:00 Dose: 650 mg Acyclovir 750 mg/ Sodium (Chloride) 100 mls @ 100 mls/hr IV Q8 SHERRIE PRN Reason: Protocol Stop: 01/09/18 11:01 Last Admin: 01/03/18 15:20 Dose: 100 mls/hr Sodium Chloride (Sodium Chloride 0.9%) 1,000 mls @ 100 mls/hr IV .Q10H SHERRIE Last Admin: 01/03/18 08:23 Dose: 100 mls/hr Midazolam 100 mg/100ml in NS (Midazolam 100 Mg/100ml In Ns) 100 mg in 100 mls @ 1 mls/hr IV .Q24H PRN; Protocol; 1 MG/HR PRN Reason: Sedation/Seizures Last Admin: 01/03/18 15:20 Dose: 7 mg/hr, 7 mls/hr Levetiracetam 1,000 mg/ Sodium (Chloride) 110 mls @ 460 mls/hr IV Q12 SHERRIE Last Admin: 01/03/18 10:35 Dose: 460 mls/hr Propofol (Diprivan) 1,000 mg in 100 mls @ 1.569 mls/hr IV .Q24H PRN; Protocol; 5 MCG/KG/MIN PRN Reason: TITRATE PER MD ORDER Last Admin: 01/03/18 12:26 Dose: 40 mcg/kg/min, 12.553 mls/hr Thiamine HCl 500 mg/ Sodium (Chloride) 105 mls @ 202 mls/hr IV DAILY SHERRIE Last Admin: 01/03/18 10:36 Dose: 202 mls/hr Vancomycin HCl (Vancomycin 1gm) 1 gm in 250 mls @ 167 mls/hr IVPB Q12H SHERRIE PRN Reason: Protocol Last Admin: 01/03/18 15:25 Dose: 167 mls/hr Meropenem (Merrem Iv 1 Gm Premix) 50 mls @ 100 mls/hr IVPB Q8 SHERRIE PRN Reason: Protocol Stop: 01/12/18 06:01 Last Admin: 01/03/18 13:26 Dose: 100 mls/hr Valproate Sodium 400 mg/ (Sodium Chloride) 104 mls @ 100 mls/hr IVPB Q12 SHERRIE Lorazepam (Ativan) 1 mg IVP Q4H PRN; Protocol PRN Reason: Seizures Last Admin: 01/02/18 19:19 Dose: 1 mg Pantoprazole Sodium (Protonix Inj) 40 mg IVP DAILY SHERRIE Last Admin: 01/03/18 09:21 Dose: 40 mg - Labs Labs: 01/03/18 06:00 01/03/18 06:00 PT 14.4 SECONDS (9.4-12.5) H 12/31/17 04:26 INR 1.26 (0.93-1.08) H 12/31/17 04:26 APTT 38.1 Seconds (25.1-36.5) H 12/31/17 04:26
--- NOTE | 2018-01-03 16:31 | CP.PCM.PN ---
Subjective - Date & Time of Evaluation Date of Evaluation: 01/03/18 Time of Evaluation: 09:30 - Subjective Subjective: Continues to be on the ventilator, sedated, no fever since 6AM but still running low grade fevers overnight. Objective - Vital Signs/Intake and Output Vital Signs (last 24 hours): Temp Pulse Resp BP Pulse Ox 98.5 F 96 H 16 122/76 100 01/03/18 16:00 01/03/18 15:30 01/03/18 06:07 01/03/18 15:17 01/03/18 15:30 Intake and Output: 01/03/18 01/03/18 06:59 18:59 Intake Total 2435 91 Output Total 1025 Balance 1410 91 - Medications Medications: Current Medications Acetaminophen (Tylenol 650mg/20.3ml Solution Ud) 650 mg PO Q6H PRN PRN Reason: Fever Last Admin: 01/03/18 00:00 Dose: 650 mg Acyclovir 750 mg/ Sodium (Chloride) 100 mls @ 100 mls/hr IV Q8 SHERRIE PRN Reason: Protocol Stop: 01/09/18 11:01 Last Admin: 01/03/18 15:20 Dose: 100 mls/hr Sodium Chloride (Sodium Chloride 0.9%) 1,000 mls @ 100 mls/hr IV .Q10H SHERRIE Last Admin: 01/03/18 08:23 Dose: 100 mls/hr Midazolam 100 mg/100ml in NS (Midazolam 100 Mg/100ml In Ns) 100 mg in 100 mls @ 1 mls/hr IV .Q24H PRN; Protocol; 1 MG/HR PRN Reason: Sedation/Seizures Last Admin: 01/03/18 15:20 Dose: 7 mg/hr, 7 mls/hr Levetiracetam 1,000 mg/ Sodium (Chloride) 110 mls @ 460 mls/hr IV Q12 SHERRIE Last Admin: 01/03/18 10:35 Dose: 460 mls/hr Propofol (Diprivan) 1,000 mg in 100 mls @ 1.569 mls/hr IV .Q24H PRN; Protocol; 5 MCG/KG/MIN PRN Reason: TITRATE PER MD ORDER Last Admin: 01/03/18 12:26 Dose: 40 mcg/kg/min, 12.553 mls/hr Thiamine HCl 500 mg/ Sodium (Chloride) 105 mls @ 202 mls/hr IV DAILY SHERRIE Last Admin: 01/03/18 10:36 Dose: 202 mls/hr Vancomycin HCl (Vancomycin 1gm) 1 gm in 250 mls @ 167 mls/hr IVPB Q12H SHERRIE PRN Reason: Protocol Last Admin: 01/03/18 15:25 Dose: 167 mls/hr Meropenem (Merrem Iv 1 Gm Premix) 50 mls @ 100 mls/hr IVPB Q8 SHERRIE PRN Reason: Protocol Stop: 01/12/18 06:01 Last Admin: 01/03/18 13:26 Dose: 100 mls/hr Valproate Sodium 400 mg/ (Sodium Chloride) 104 mls @ 100 mls/hr IVPB Q12 SHERRIE Lorazepam (Ativan) 1 mg IVP Q4H PRN; Protocol PRN Reason: Seizures Last Admin: 01/02/18 19:19 Dose: 1 mg Pantoprazole Sodium (Protonix Inj) 40 mg IVP DAILY [facility] Last Admin: 01/03/18 09:21 Dose: 40 mg - Labs Labs: 01/03/18 06:00 01/03/18 06:00 PT 14.4 SECONDS (9.4-12.5) H 12/31/17 04:26 INR 1.26 (0.93-1.08) H 12/31/17 04:26 APTT 38.1 Seconds (25.1-36.5) H 12/31/17 04:26 - Constitutional Appears: Other (intubated, sedated) - Head Exam Head Exam: NORMAL INSPECTION - ENT Exam Additional comments: ET tube in place - Neck Exam Neck Exam: absent: Meningismus - Respiratory Exam Respiratory Exam: Decreased Breath Sounds - Cardiovascular Exam Cardiovascular Exam: +S1, +S2 - GI/Abdominal Exam GI & Abdominal Exam: Soft Assessment and Plan - Assessment and Plan (Free Text) Plan: Assessment Systemic Inflammatory Response Syndrome with ventilator-dependent respiratory failure, consider due to delirium tremens, R/O meningoencephalitis R/O HCAP chronic alcohol abuse dilated cardiomyopathy probably alcohol-related history of C4-T1 fusion surgery with history of possible surgical site skin and skin structure infection in 2017 Plan For LP today, follow up CSF analysis for WBC's RBC's, glucose, TP, VDRL, Crypt Ag, cultures, HSV PCR, anti-NMDA receptor antibodies, CMV and EBV PCR continue Vancomycin and Merrem as well as Acyclovir (day 4) for now discussed with
[2018-01-03] MEDS ORDERED: Magnesium 2 gm/50 ml NS 2 GM/50 ML BAG IVPB SCH (17:30)
--- NOTE | 2018-01-03 18:31 | RAD ---
HISTORY: PICC line placement COMPARISON: January 03, 2018. Portable study 05:10 FINDINGS: LUNGS: No active pulmonary disease. PLEURA: No significant pleural effusion identified, no pneumothorax apparent. CARDIOVASCULAR: PICC line in satisfactory position Venous access catheter in stable, satisfactory position. OSSEOUS STRUCTURES: No significant abnormalities. VISUALIZED UPPER ABDOMEN: Normal. OTHER FINDINGS: Stable position of endotracheal tube and nasogastric tube. IMPRESSION: No adverse findings/ no pneumothorax following PICC line placement. Otherwise no interval change. AllNo active disease.
--- NOTE | 2018-01-03 18:32 | PN ---
DATE: 01/03/2018 NEUROLOGY FOLLOWUP This is a 52-year-old man. CHIEF COMPLAINT: Followup for seizures. SUBJECTIVE: Patient is on strong sedation on propofol and while trying to cut down, patient does have tremulous activity on the extremities. His EEG was positive for diffuse slowing and intermittent paroxysmal activity. Currently he is on midazolam, levetiracetam 1000 mg IV every 12 hours in addition to sodium valproate 500 mg IV every 12 hours as well as thiamine 500 mg IV daily. Patient is status post lumbar puncture under fluoroscopy. CSF is clear, total cell counts are 100, no neutrophils, CSF lymphocytes are 100, it is elevated and normal protein and glucose indicating possible viral encephalitis. ID is on board. Patient is on antibiotics. 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 SOCIAL HISTORY: He drinks about 18 [employer]ite per day in terms of beer. No illicit drug use. Former smoker. MEDICATIONS: Reviewed by nurse per reconciliation sheet. REVIEW OF SYSTEMS: Difficult to obtain due to patient's underlying altered mental status. ALLERGIES: ALLERGIC TO LORAZEPAM, PENICILLIN. FAMILY HISTORY: Noncontributory. PHYSICAL EXAMINATION: VITAL SIGNS: Temperature 98.5, pulse rate 98, blood pressure 124/72 and respiratory rate of . GENERAL: Patient is intubated, on sedation. HEENT: Atraumatic, normocephalic. PERRLA. Extraocular muscles intact. NECK: Supple. No JVD, no adenopathy noted. LUNGS: Diffuse breath sounds bilaterally. HEART: S1, S2, normal rate and rhythm. No murmurs, rubs or gallops. ABDOMEN: Soft, nontender, nondistended. Bowel sounds are present. EXTREMITIES: No clubbing, no cyanosis. Peripheral pulses are 2+ felt bilaterally. NEUROLOGICAL: Patient is lethargic, intubated, on sedation, when off sedation, restlessness of the extremities. Cranial nerves II through XII intact. Moves all extremities spontaneously when off sedation. Sensory: Withdraws to localized and noxious stimulus when off sedation. DTRs are 2+ throughout. Coordination and gait deferred for now. LABORATORY DATA: Sodium is 134, potassium 2.7, chloride 99, carbon dioxide of 11, BUN of 2, creatinine of 0.4. Random glucose of 96. CSF protein is 22, which is normal. CSF glucose is 66 which is normal, CSF lymphocytes are 100, which is elevated, total CSF cell count is 100, which is elevated possibly indicating viral encephalitis. ASSESSMENT AND PLAN: This is a 52-year-old man, chronic alcoholic, drinks about 18 mL of beer per day, had dilated cardiomyopathy with current ejection fraction of 25%, hypertension, syndrome of inappropriate antidiuretic hormone, noncompliant with replacement therapy, history of alcohol withdrawal seizure years ago, history of enlarged chronic left pupil compared to the right, history of alcoholic breakthrough seizures, came in for breakthrough seizures while [place] the [place]. He was intubated and sedated and when trying to wean off sedation he has tremulous activity of the extremities, which indicates patient is also on delirium tremens since chronic ethanol withdrawal. He also had further breakthrough seizures because he was hyponatremic with some metabolic derangement in addition from chronic alcohol use/withdrawal leading to delirium tremens, which is a risk for mortality superimposed underlying syndrome of inappropriate antidiuretic hormone, which is corrective and now with cerebrospinal fluid analysis for possible viral encephalitis, which elevates cerebrospinal fluid lymphocytes with the normal protein count. Currently at this time recommend; 1. Continue Keppra 1000 mg intravenous every 12 hours in addition to 400 mg of intravenous valproic every 12 hours for further seizure prophylaxis in addition to continuing propofol and slowly taper off. 2. Continue on intravenous thiamine 500 mg for increased diffusion weighted images in the right thalamus of the brain which is also consistent with possible encephalitis, which his lumbar puncture is possibly consistent with given that there is elevated lymphocytes in the cerebrospinal fluid. So far CSF HSV and CSF NMDA and CMV are currently pending. Recommend to follow with Infectious Disease recommendations in regards to his viral coverage of medication. At this time given that his viral encephalitis does put him under risk in conjunction with his evidence of delirium tremens had been alcohol withdrawal seizures over some seizures as well as encephalitis. At this time we will continue with current medial regimen and probably repeat the EEG in 48 hours. Once again, thank you for this follow up. Jose Blanchard MD
[2018-01-03] MEDS: VALPROATE IVPB SCH (22:09)
[2018-01-03] MEDS: SODIUM CHLORIDE 0.9% IVPB SCH (22:09)
[2018-01-04] MEDS: Propofol 10 mg/ml 1,000 MG/100 ML VIAL IV PRN ×3 (02:11→18:35)
[2018-01-04] MEDS: Vancomycin 1gm in NS 250ml 1 GM/250 ML BAG IVPB SCH ×2 (03:10→15:04)
[2018-01-04 05:08] LABS: ARTERIAL BLOOD GAS HEMOGLOBIN 8.1 g/dL (11.7-17.4); ARTERIAL BLOOD GAS O2 CAPACITY 11.4 mL/dl (16-24); ARTERIAL BLOOD GAS O2 CONTENT 11.4 ML/dl (15-23); ARTERIAL BLOOD GAS O2 SAT 99.7 % (95-98); ARTERIAL BLOOD GAS PCO2 32 mm/Hg (35-45)
[2018-01-04] MEDS: Meropenem IV 1 gm in NS 50 ML IVPB SCH (05:29)
[2018-01-04] MEDS: Midazolam 100 mg/100ml in NS 100 MG/100 ML SOL IV PRN ×2 (05:42→21:10)
[2018-01-04 06:15] LABS: BASO # 0.03 K/mm3 (0.0-2.0); BASO % 0.5 % (0.0-3.0); EOS # 0.1 (0.0-0.7); EOS % 1.2 % (1.5-5.0); GRAN # 4.41 (1.4-6.5); GRAN % 67.7 % (50.0-68.0); HEMOGLOBIN 8.3 g/dL (14.0-18.0); LYMPH # 1.2 (1.2-3.4); LYMPH % 17.7 % (22.0-35.0); MEAN CELL VOLUME 104.3 fl (80.0-105.0); MEAN CORPUSCULAR HEMOGLOBIN 35.5 pg (25.0-35.0); MONO # 0.8 (0.1-0.6); MONO % 12.9 % (1.0-6.0); RBC 2.34 10^6/uL (3.5-6.1); WHITE BLOOD COUNT 6.5 10^3/ul (4.5-11.0)
--- NOTE | 2018-01-04 06:46 | CP.CCUPN ---
<Hood Mathews - Last Filed: 01/04/18 13:28> CCU Subjective - Physician Review Subjective (Free Text): 01/04/18 13:28 Patient seen and examined at bedside in ICU. Attempted to wean sedation, weaned Versed but then patient developed seizure-like activity shortly thereafter, requiring IV Ativan x1 4mg, and restarting of Versed. Neuro notified and aware. of patient looking to pursue [facility] medical transport to bring him home to [place], pending an accepting physician/ facility. CCU Objective - Vital Signs / Intake & Output Vital Signs (Last 4 hours): Vital Signs Temp Pulse BP Pulse Ox 01/04/18 06:23 97 H 01/04/18 06:00 97 H 131/68 98 01/04/18 05:30 102 H 100 01/04/18 05:06 150/90 01/04/18 05:05 107 H 100 01/04/18 05:02 101 H 01/04/18 05:01 101 H 01/04/18 05:00 100 H 01/04/18 04:30 106 H 99 01/04/18 04:00 98 F 109 H 151/81 H 99 01/04/18 03:30 108 H 97 01/04/18 03:00 107 H 144/78 98 Intake and Output (Last 8hrs): Intake & Output 01/03/18 01/03/18 01/04/18 14:59 22:59 06:59 Intake Total 91 3119 2850 Output Total 1200 1000 Balance 91 1919 1850 Intake: IV 91 2719 2250 Left Upper arm 2050 Right Internal Jugular 2619 Tube Feeding 400 600 Output: Urine 1200 1000 Urethral (Terrell) 1200 1000 Emesis 0 Other: # Bowel Movements 4 1 - Physical Exam Head: Positive for: Atraumatic, Normocephalic Pupils: Positive for: Other (pinpoint bilaterally) Extroacular Muscles: Positive for: Other (not moving, not avoiding direct light challenge, leftward/inferiorly deviated during seizure activity). Negative for : EOMI Conjunctiva: Positive for: Normal. Negative for: Injected, Icteric Ears: Positive for: Normal Mouth: Positive for: Moist Mucous Membranes, Other (ETT in place) Nose (External): Positive for: Atraumatic. Negative for: Abrasion, Laceration, Lesions Nose (Internal): Positive for: Normal Inspection, No Active Bleeding. Negative for: Epistaxis Neck: Positive for: Other (sedated/AMS, no appreciate spontaneous movement of neck appreciated, but passive ROM intact, no rigidity or abnormal barriers to movement appreciated) Respiratory/Chest: Positive for: Clear to Auscultation, Good Air Exchange, Rhonchi (faint ronchi in all holguin, including same faint sounds in neck), Other (mechanically ventilated, overbreathing ventilator). Negative for: Respiratory Distress, Accessory Muscle Use, Wheezes, Rales, Retracting Cardiovascular: Positive for: Normal S1, S2, Peripheal Pulses Present (+1-2 radial and dorsalis pedis bilaterally), Tachycardic. Negative for: Regular Rate and Rhythm, Murmurs, Irregular Rhythm, Bradycardic Abdomen: Positive for: Normal Bowel Sounds, Other (unable to assess tenderness due to sedation/AMS, but no gross reaction or guarding on palpation). Negative for: Distention, Peritoneal Signs, Rebound, Feeding Tubes, Mass/Organomegaly Upper Extremity: Positive for: Normal Inspection, NORMAL PULSES, Other (gross twitches of bilateral UE L>R intermittently, otherwise holding limbs flaccidly ) . Negative for: Cyanosis, Edema, Swelling, Erythema, Deformity Lower Extremity: Positive for: Normal Inspection, NORMAL PULSES, Other (gross twitches of bilateral LE L>R intermittently, otherwise holding limbs flaccidly ) . Negative for: Edema, Cyanosis, Tenderness, Swelling, Erythema, Deformity Neurological: Positive for: Other (resedated due to recurring seizures, minimal spontaneous movements) Skin: Positive for: Warm, Dry, Normal Color. Negative for: Rashes Psychiatric: Positive for: Other (Sedated/AMS, intubated, so unable to assess) - Medications Active Medications: Active Medications Generic Name Dose Route Start Last Admin Trade Name Freq PRN Reason Stop Dose Admin Acetaminophen 650 mg 01/02/18 16:48 01/03/18 00:00 Tylenol 650mg/20.3ml Solution Ud PO 650 mg Q6H PRN Administration Fever Acyclovir 750 mg/ Sodium 100 mls @ 100 mls/hr 12/31/17 11:00 01/04/18 05:28 Chloride IV 01/09/18 11:01 100 mls/hr Q8 SHERRIE Administration Protocol Midazolam 100 mg/100ml in NS 100 mg in 100 mls @ 1 mls/hr 01/02/18 10:24 05:42 Midazolam 100 Mg/100ml In Ns IV 7 mg/hr .Q24H PRN 7 mls/hr Sedation/Seizures Administration Protocol 1 MG/HR Levetiracetam 1,000 mg/ Sodium 110 mls @ 460 mls/hr 01/02/18 10:45 01/03/18 22:10 Chloride IV 460 mls/hr Q12 SHERRIE Administration Propofol 1,000 mg in 100 mls @ 1.569 mls/hr 01/02/18 10:44 01/04/18 02:11 Diprivan IV 40 mcg/kg/min .Q24H PRN 12.553 mls/hr TITRATE PER MD ORDER Administration Protocol 5 MCG/KG/MIN Thiamine HCl 500 mg/ Sodium 105 mls @ 202 mls/hr 01/02/18 14:16 01/03/18 10: 36 Chloride IV 202 mls/hr DAILY SHERRIE Administration Vancomycin HCl 1 gm in 250 mls @ 167 mls/hr 01/02/18 14:15 01/04/18 03:10 Vancomycin 1gm IVPB 167 mls/hr Q12H SHERRIE Administration Protocol Meropenem 50 mls @ 100 mls/hr 01/03/18 06:00 01/04/18 05:29 Merrem Iv 1 Gm Premix IVPB 01/12/18 06:01 100 mls/hr Q8 SHERRIE Administration Protocol Valproate Sodium 400 mg/ 104 mls @ 100 mls/hr 01/03/18 11:33 01/03/18 22:09 Sodium Chloride IVPB 100 mls/hr Q12 SHERRIE Administration Magnesium 2 gm/50 ml NS 2 gm in 50 mls @ 50 mls/hr 01/03/18 17:30 01/03/18 17 :31 Magnesium Sulfate 2 Gm/50 Ml Ns IVPB 50 mls/hr ONCE SHERRIE Administration Magnesium Sulfate 1 gm/ Sodium 1,002 mls @ 100 mls/hr 01/03/18 17:20 04:22 Chloride IV 100 mls/hr .Q10H2M SHERRIE Administration Lorazepam 1 mg 01/01/18 16:58 01/02/18 19:19 Ativan IVP 1 mg Q4H PRN Administration Seizures Protocol Pantoprazole Sodium 40 mg 12/31/17 10:00 01/03/18 09:21 Protonix Inj IVP 40 mg DAILY SHERRIE Administration - Patient Studies Lab Studies: Microbiology Studies 01/03/18 15:10 Gram Stain - Final Cerebral Spinal Fluid 01/02/18 18:45 Gram Stain - Final Trachasp Sputum Culture - Preliminary No growth. 01/02/18 11:00 Blood Culture - Preliminary Blood NO GROWTH AFTER 24 HOURS Lab Studies 01/04/18 01/04/18 01/03/18 Range/Units 05:45 05:05 16:45 WBC 6.5 D (4.5-11.0) 10^3/ul RBC 2.34 L (3.5-6.1) 10^6/uL Hgb 8.3 L (14.0-18.0) g/dL Hct 24.4 L (42.0-52.0) % MCV 104.3 (80.0-105.0) fl MCH 35.5 H (25.0-35.0) pg MCHC 34.0 (31.0-37.0) g/dl RDW 17.0 H (11.5-14.5) % Plt Count 228 (120.0-450.0) 10^3/uL MPV 9.0 (7.0-11.0) fl Gran % 67.7 (50.0-68.0) % Lymph % (Auto) 17.7 L (22.0-35.0) % Owsley % (Auto) 12.9 H (1.0-6.0) % Eos % (Auto) 1.2 L (1.5-5.0) % Baso % (Auto) 0.5 (0.0-3.0) % Gran # 4.41 (1.4-6.5) Lymph # (Auto) 1.2 (1.2-3.4) Owsley # (Auto) 0.8 H (0.1-0.6) Eos # (Auto) 0.1 (0.0-0.7) Baso # (Auto) 0.03 (0.0-2.0) K/mm3 pCO2 32 L (35-45) mm/Hg pO2 152.0 H (80-100) mm/Hg HCO3 25.0 (21-28) mmol/L ABG pH 7.50 H (7.35-7.45) ABG Total CO2 26.0 (22-28) mmol.L ABG O2 Saturation 99.7 H (95-98) % ABG O2 Content 11.4 L (15-23) ML/dl ABG Base Excess 1.9 (-2.0-3.0) mmol/L ABG Hemoglobin 8.1 L (11.7-17.4) g/dL ABG Carboxyhemoglobin 1.7 H (0.5-1.5) % POC ABG HHb (Measured) 0.3 (0-5) % ABG Methemoglobin 1.3 (0.0-3.0) % ABG O2 Capacity 11.4 L (16-24) mL/dl Hgb O2 Saturation 96.7 (95.0-98.0) % FiO2 40.0 % Sodium (132-148) mmol/L Potassium 4.0 (3.6-5.0) mmol/L Chloride (98-107) mmol/L Carbon Dioxide (21-33) mmol/L Anion Gap (10-20) BUN (7-21) mg/dL Creatinine (0.8-1.5) mg/dl Est GFR ( Amer) Est GFR (Non-Af Amer) Random Glucose (70-110) mg/dL Calcium (8.4-10.5) mg/dL Phosphorus (2.5-4.5) mg/dL Magnesium 1.8 (1.7-2.2) mg/dL Total Bilirubin (0.2-1.3) mg/dL AST (17-59) U/L ALT (7-56) U/L Alkaline Phosphatase (38-126) U/L Total Protein (5.8-8.3) g/dL Albumin (3.0-4.8) g/dL Globulin gm/dL Albumin/Globulin Ratio (1.1-1.8) Fluid Type CSF Volume (0-1) mL CSF Appearance (CLEAR) CSF WBC (0.0-5.0) /uL CSF RBC (0.0-0.0) /uL CSF Total Cell Counted (0-0) CSF Neutrophils (0-0) % CSF Lymphocytes (0-0) % CSF Monos/Macrophages CSF Comment CSF Glucose (40-70) mg/dL CSF Total Protein (12-60) mg/dL HSV Source Description 01/03/18 01/03/18 01/03/18 Range/Units 15:10 15:10 15:10 WBC (4.5-11.0) 10^3/ul RBC (3.5-6.1) 10^6/uL Hgb (14.0-18.0) g/dL Hct (42.0-52.0) % MCV (80.0-105.0) fl MCH (25.0-35.0) pg MCHC (31.0-37.0) g/dl RDW (11.5-14.5) % Plt Count (120.0-450.0) 10^3/uL MPV (7.0-11.0) fl Gran % (50.0-68.0) % Lymph % (Auto) (22.0-35.0) % Owsley % (Auto) (1.0-6.0) % Eos % (Auto) (1.5-5.0) % Baso % (Auto) (0.0-3.0) % Gran # (1.4-6.5) Lymph # (Auto) (1.2-3.4) Owsley # (Auto) (0.1-0.6) Eos # (Auto) (0.0-0.7) Baso # (Auto) (0.0-2.0) K/mm3 pCO2 (35-45) mm/Hg pO2 (80-100) mm/Hg HCO3 (21-28) mmol/L ABG pH (7.35-7.45) ABG Total CO2 (22-28) mmol.L ABG O2 Saturation (95-98) % ABG O2 Content (15-23) ML/dl ABG Base Excess (-2.0-3.0) mmol/L ABG Hemoglobin (11.7-17.4) g/dL ABG Carboxyhemoglobin (0.5-1.5) % POC ABG HHb (Measured) (0-5) % ABG Methemoglobin (0.0-3.0) % ABG O2 Capacity (16-24) mL/dl Hgb O2 Saturation (95.0-98.0) % FiO2 % Sodium (132-148) mmol/L Potassium (3.6-5.0) mmol/L Chloride (98-107) mmol/L Carbon Dioxide (21-33) mmol/L Anion Gap (10-20) BUN (7-21) mg/dL Creatinine (0.8-1.5) mg/dl Est GFR ( Amer) Est GFR (Non-Af Amer) Random Glucose (70-110) mg/dL Calcium (8.4-10.5) mg/dL Phosphorus (2.5-4.5) mg/dL Magnesium (1.7-2.2) mg/dL Total Bilirubin (0.2-1.3) mg/dL AST (17-59) U/L ALT (7-56) U/L Alkaline Phosphatase (38-126) U/L Total Protein (5.8-8.3) g/dL Albumin (3.0-4.8) g/dL Globulin gm/dL Albumin/Globulin Ratio (1.1-1.8) Fluid Type Spinal fluid CSF Volume 5 H (0-1) mL CSF Appearance Clear/colorless (CLEAR) CSF WBC 2.0 (0.0-5.0) /uL CSF RBC 0.0 (0.0-0.0) /uL CSF Total Cell Counted 100 H (0-0) CSF Neutrophils 0 (0-0) % CSF Lymphocytes 100.0 H (0-0) % CSF Monos/Macrophages TEST NOT PERFORMED CSF Comment TEST NOT PERFORMED CSF Glucose 66 (40-70) mg/dL CSF Total Protein 23.0 (12-60) mg/dL HSV Source Description Fluid 01/03/18 01/03/18 Range/Units 06:00 06:00 WBC 4.8 D (4.5-11.0) 10^3/ul RBC 2.21 L (3.5-6.1) 10^6/uL Hgb 7.8 L (14.0-18.0) g/dL Hct 22.8 L (42.0-52.0) % MCV 103.2 (80.0-105.0) fl MCH 35.3 H (25.0-35.0) pg MCHC 34.2 (31.0-37.0) g/dl RDW 16.5 H (11.5-14.5) % Plt Count 252 (120.0-450.0) 10^3/uL MPV 8.5 (7.0-11.0) fl Gran % 52.4 (50.0-68.0) % Lymph % (Auto) 27.0 (22.0-35.0) % Owsley % (Auto) 17.9 H (1.0-6.0) % Eos % (Auto) 1.9 (1.5-5.0) % Baso % (Auto) 0.8 (0.0-3.0) % Gran # 2.52 (1.4-6.5) Lymph # (Auto) 1.3 (1.2-3.4) Owsley # (Auto) 0.9 H (0.1-0.6) Eos # (Auto) 0.1 (0.0-0.7) Baso # (Auto) 0.04 (0.0-2.0) K/mm3 pCO2 (35-45) mm/Hg pO2 (80-100) mm/Hg HCO3 (21-28) mmol/L ABG pH (7.35-7.45) ABG Total CO2 (22-28) mmol.L ABG O2 Saturation (95-98) % ABG O2 Content (15-23) ML/dl ABG Base Excess (-2.0-3.0) mmol/L ABG Hemoglobin (11.7-17.4) g/dL ABG Carboxyhemoglobin (0.5-1.5) % POC ABG HHb (Measured) (0-5) % ABG Methemoglobin (0.0-3.0) % ABG O2 Capacity (16-24) mL/dl Hgb O2 Saturation (95.0-98.0) % FiO2 % Sodium 134 (132-148) mmol/L Potassium 2.7 L* (3.6-5.0) mmol/L Chloride 99 (98-107) mmol/L Carbon Dioxide 27 (21-33) mmol/L Anion Gap 11 (10-20) BUN 2 L (7-21) mg/dL Creatinine 0.4 L (0.8-1.5) mg/dl Est GFR ( Amer) > 60 Est GFR (Non-Af Amer) > 60 Random Glucose 96 (70-110) mg/dL Calcium 7.3 L (8.4-10.5) mg/dL Phosphorus 2.9 (2.5-4.5) mg/dL Magnesium 1.4 L (1.7-2.2) mg/dL Total Bilirubin 0.5 (0.2-1.3) mg/dL AST 94 H D (17-59) U/L ALT 38 (7-56) U/L Alkaline Phosphatase 190 H (38-126) U/L Total Protein 4.9 L (5.8-8.3) g/dL Albumin 2.1 L (3.0-4.8) g/dL Globulin 2.8 gm/dL Albumin/Globulin Ratio 0.8 L (1.1-1.8) Fluid Type CSF Volume (0-1) mL CSF Appearance (CLEAR) CSF WBC (0.0-5.0) /uL CSF RBC (0.0-0.0) /uL CSF Total Cell Counted (0-0) CSF Neutrophils (0-0) % CSF Lymphocytes (0-0) % CSF Monos/Macrophages CSF Comment CSF Glucose (40-70) mg/dL CSF Total Protein (12-60) mg/dL HSV Source Description Laboratory Results - last 24 hr 01/03/18 01/03/18 01/03/18 06:00 06:00 15:10 WBC 4.8 D RBC 2.21 L Hgb 7.8 L Hct 22.8 L MCV 103.2 MCH 35.3 H MCHC 34.2 RDW 16.5 H Plt Count 252 MPV 8.5 Gran % 52.4 Lymph % (Auto) 27.0 Owsley % (Auto) 17.9 H Eos % (Auto) 1.9 Baso % (Auto) 0.8 Gran # 2.52 Lymph # (Auto) 1.3 Owsley # (Auto) 0.9 H Eos # (Auto) 0.1 Baso # (Auto) 0.04 pCO2 pO2 HCO3 ABG pH ABG Total CO2 ABG O2 Saturation ABG O2 Content ABG Base Excess ABG Hemoglobin ABG Carboxyhemoglobin POC ABG HHb (Measured) ABG Methemoglobin ABG O2 Capacity Hgb O2 Saturation FiO2 Sodium 134 Potassium 2.7 L* Chloride 99 Carbon Dioxide 27 Anion Gap 11 BUN 2 L Creatinine 0.4 L Est GFR ( Amer) > 60 Est GFR (Non-Af Amer) > 60 Random Glucose 96 Calcium 7.3 L Phosphorus 2.9 Magnesium 1.4 L Total Bilirubin 0.5 AST 94 H D ALT 38 Alkaline Phosphatase 190 H Total Protein 4.9 L Albumin 2.1 L Globulin 2.8 Albumin/Globulin Ratio 0.8 L Fluid Type CSF Volume CSF Appearance CSF WBC CSF RBC CSF Total Cell Counted CSF Neutrophils CSF Lymphocytes CSF Monos/Macrophages CSF Comment CSF Glucose CSF Total Protein HSV Source Description Fluid 01/03/18 01/03/18 01/03/18 15:10 15:10 16:45 WBC RBC Hgb Hct MCV MCH MCHC RDW Plt Count MPV Gran % Lymph % (Auto) Owsley % (Auto) Eos % (Auto) Baso % (Auto) Gran # Lymph # (Auto) Owsley # (Auto) Eos # (Auto) Baso # (Auto) pCO2 pO2 HCO3 ABG pH ABG Total CO2 ABG O2 Saturation ABG O2 Content ABG Base Excess ABG Hemoglobin ABG Carboxyhemoglobin POC ABG HHb (Measured) ABG Methemoglobin ABG O2 Capacity Hgb O2 Saturation FiO2 Sodium Potassium 4.0 Chloride Carbon Dioxide Anion Gap BUN Creatinine Est GFR ( Amer) Est GFR (Non-Af Amer) Random Glucose Calcium Phosphorus Magnesium 1.8 Total Bilirubin AST ALT Alkaline Phosphatase Total Protein Albumin Globulin Albumin/Globulin Ratio Fluid Type Spinal fluid CSF Volume 5 H CSF Appearance Clear/colorless CSF WBC 2.0 CSF RBC 0.0 CSF Total Cell Counted 100 H CSF Neutrophils 0 CSF Lymphocytes 100.0 H CSF Monos/Macrophages TEST NOT PERFORMED CSF Comment TEST NOT PERFORMED CSF Glucose 66 CSF Total Protein 23.0 HSV Source Description 01/04/18 01/04/18 05:05 05:45 WBC 6.5 D RBC 2.34 L Hgb 8.3 L Hct 24.4 L MCV 104.3 MCH 35.5 H MCHC 34.0 RDW 17.0 H Plt Count 228 MPV 9.0 Gran % 67.7 Lymph % (Auto) 17.7 L Owsley % (Auto) 12.9 H Eos % (Auto) 1.2 L Baso % (Auto) 0.5 Gran # 4.41 Lymph # (Auto) 1.2 Owsley # (Auto) 0.8 H Eos # (Auto) 0.1 Baso # (Auto) 0.03 pCO2 32 L pO2 152.0 H HCO3 25.0 ABG pH 7.50 H ABG Total CO2 26.0 ABG O2 Saturation 99.7 H ABG O2 Content 11.4 L ABG Base Excess 1.9 ABG Hemoglobin 8.1 L ABG Carboxyhemoglobin 1.7 H POC ABG HHb (Measured) 0.3 ABG Methemoglobin 1.3 ABG O2 Capacity 11.4 L Hgb O2 Saturation 96.7 FiO2 40.0 Sodium Potassium Chloride Carbon Dioxide Anion Gap BUN Creatinine Est GFR ( Amer) Est GFR (Non-Af Amer) Random Glucose Calcium Phosphorus Magnesium Total Bilirubin AST ALT Alkaline Phosphatase Total Protein Albumin Globulin Albumin/Globulin Ratio Fluid Type CSF Volume CSF Appearance CSF WBC CSF RBC CSF Total Cell Counted CSF Neutrophils CSF Lymphocytes CSF Monos/Macrophages CSF Comment CSF Glucose CSF Total Protein HSV Source Description Review of Systems - Review of Systems Systems not reviewed;Unavailable: Intubated All systems: reviewed and no additional remarkable complaints except Critical Care Progress Note - Nutrition Nutrition: Nutrition Category Date Time Status NPO Diet [DIET] Diets 12/30/17 Dinner Ordered Assessment/Plan - Assessment and Plan (Free Text) Assessment: This is a 52 yo M with 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 Patient was intubated for airway protection and sedated. He continued to have seizure-like activity, requiring re-initiation of Versed, and is pending another EEG. Patient is also pending possible EMTALA transfer/[facility] to [place], as per 's request (pending accepting facility/physician). 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 as per ; pending CSF results and repeat cultures -As per Neuro and ID: will obtain serum and CSF HSV/CMV PCR, Legionella CSF test , and NMDA receptor antibody test -MRI brain obtained, concerning for possible encephalitis vs reversible ischemia at medial aspect right thalmus; as per Neuro also 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; continue Thiamine 500mg daily Cardio: -hx CAD and cardiomyopathy with EF 25% -cardiomyopathy likely 2/2 chronic alcohol abuse -Cardio following, appreciate all recs; echo ordered, repleting Mag/K -digoxin d/c due to risk for dig tox in persistent hypoK/hypoMag Pulm: -intubated and sedated, tolerated pressure support 4 days prior well but failed today due to tachycardia and tachypnea -ABG CXR reviewed this AM -continue PRN suction due to secretions -maintain SaO2 > 90% and paO2 > 60 -VAP bundle, aspiration precautions -Pulm following, appreciate all recs GI: -NPO due to intubation -NGT in place -Protonix for GI ppx Renal: -making good urine output -monitor and replete electrolytes as needed; persistently losing K and Mg, aggressively repleting -Cr stable at 0.4 -Hx SIADH noncompliant with salt tab therapy; Na improved from 120 on admit to 131 this AM (was 132 yesterday) -Nephro consulted, appreciate all recs; started standing Mag and K, signed off Heme: -no signs of acute bleeding -s/p Lumbar puncture, so will start Lovenox for DVT ppx -Hgb 8.3, no signs of bleeding ID: -no leukocytosis, no fevers overnight -empirically on acyclovir/merrem/vanco as per ID, switching merrem to cefepime as per ID -repeat procal 0.32, repeat cultures negative x48 hours -s/p lumbar puncture for CSF analysis, testing as above as per Neuro and ID, results pending Dispo: In ICU, intubated/sedated on Propofol/Versed, pending CSF results, pending possible EMTALA transfer/Life-flight transfer (initiated by ), pending repeat EEG FEN: NPO; Banana Bag 50cc/hr, NS 100cc/hr, Mag/K supplements as needed, Thiamine 500mg daily Access: peripheral IVs, R-IJ TLC; pending PICC line (will remove TLC after PICC placement) Consults: Neuro, Cardio, ID, Nephro, Pulm Ppx: Protonix for GI, Lovenox for DVT Patient seen, reviewed, and discussed with Attending, Dr. Riley <Juaquin Jimenez - Last Filed: 01/05/18 12:25> CCU Objective - Vital Signs / Intake & Output Intake and Output (Last 8hrs): Intake & Output 01/04/18 01/05/18 01/05/18 22:59 06:59 14:59 Intake Total 3210 3090 200 Output Total 1675 1500 Balance 1535 1590 200 Weight 121 lb 14.4 oz Intake: IV 2400 2150 200 Left Hand 500 500 Left Upper arm 400 500 Right Internal Jugular 300 Right Upper arm 1000 1050 Tube Feeding 810 840 Other 100 Output: Urine 1575 1500 Urethral (Terrell) 1575 1500 Stool 100 Emesis 0 Other: # Bowel Movements 1 1 - Medications Active Medications: Active Medications Generic Name Dose Route Start Last Admin Trade Name Freq PRN Reason Stop Dose Admin Acetaminophen 650 mg 01/02/18 16:48 01/03/18 00:00 Tylenol 650mg/20.3ml Solution Ud PO 650 mg Q6H PRN Administration Fever Enoxaparin Sodium 40 mg 01/04/18 10:00 01/05/18 10:06 Lovenox SC 40 mg DAILY SHERRIE Administration Protocol Acyclovir 750 mg/ Sodium 100 mls @ 100 mls/hr 12/31/17 11:00 01/05/18 05:13 Chloride IV 01/09/18 11:01 100 mls/hr Q8 SHERRIE Administration Protocol Midazolam 100 mg/100ml in NS 100 mg in 100 mls @ 1 mls/hr 01/02/18 10:24 21:10 Midazolam 100 Mg/100ml In Ns IV 7 mg/hr .Q24H PRN 7 mls/hr Sedation/Seizures Administration Protocol 1 MG/HR Levetiracetam 1,000 mg/ Sodium 110 mls @ 460 mls/hr 01/02/18 10:45 01/05/18 10:05 Chloride IV 460 mls/hr Q12 SHERRIE Administration Propofol 1,000 mg in 100 mls @ 1.569 mls/hr 01/02/18 10:44 01/05/18 08:31 Diprivan IV 40 mcg/kg/min .Q24H PRN 12.553 mls/hr TITRATE PER MD ORDER Administration Protocol 5 MCG/KG/MIN Thiamine HCl 500 mg/ Sodium 105 mls @ 202 mls/hr 01/02/18 14:16 01/05/18 10: 04 Chloride IV 202 mls/hr DAILY SHERRIE Administration Vancomycin HCl 1 gm in 250 mls @ 167 mls/hr 01/02/18 14:15 01/05/18 01:19 Vancomycin 1gm IVPB 167 mls/hr Q12H SHERRIE Administration Protocol Valproate Sodium 400 mg/ 104 mls @ 100 mls/hr 01/03/18 11:33 01/05/18 10:03 Sodium Chloride IVPB 100 mls/hr Q12 SHERRIE Administration Dexmedetomidine HCl 400 mcg in 100 mls @ 2.615 mls/hr 01/04/18 07:49 12:06 Precedex 400mcg/100ml IV 0.2 mcg/kg/hr .Q24H PRN 2.615 mls/hr Agitation Administration Protocol 0.2 MCG/KG/HR Aztreonam 100 mls @ 100 mls/hr 01/04/18 14:00 01/05/18 05:12 Azactam 2 Gm IVPB 01/11/18 14:01 100 mls/hr Q8 SHERRIE Administration Protocol Magnesium Sulfate 1 gm/ Sodium 1,002 mls @ 100 mls/hr 01/05/18 01:06 02:06 Chloride IV 100 mls/hr .Q10H2M SHERRIE Administration Lorazepam 1 mg 01/01/18 16:58 01/04/18 10:34 Ativan IVP 1 mg Q4H PRN Administration Seizures Protocol Pantoprazole Sodium 40 mg 12/31/17 10:00 01/04/18 10:16 Protonix Inj IVP 40 mg DAILY SHERRIE Administration Potassium Chloride 40 meq 01/04/18 10:00 01/04/18 10:25 Potassium Chloride Oral Soln NG 40 meq DAILY SHERRIE Administration - Patient Studies Lab Studies: Microbiology Studies 01/03/18 15:10 Gram Stain - Final Cerebral Spinal Fluid CSF Culture - Preliminary NO GROWTH AFTER 2 DAYS 01/02/18 11:00 Blood Culture - Preliminary Blood NO GROWTH AFTER 3 DAYS 01/02/18 18:45 Gram Stain - Final Trachasp Sputum Culture - Final No growth. Lab Studies 01/05/18 01/05/18 01/04/18 Range/Units 05:40 05:40 20:30 WBC 5.6 (4.5-11.0) 10^3/ul RBC 2.15 L (3.5-6.1) 10^6/uL Hgb 7.7 L (14.0-18.0) g/dL Hct 22.5 L (42.0-52.0) % MCV 104.7 (80.0-105.0) fl MCH 35.8 H (25.0-35.0) pg MCHC 34.2 (31.0-37.0) g/dl RDW 17.2 H (11.5-14.5) % Plt Count 216 (120.0-450.0) 10^3/uL MPV 9.0 (7.0-11.0) fl Gran % 64.0 (50.0-68.0) % Lymph % (Auto) 23.2 (22.0-35.0) % Owsley % (Auto) 10.3 H (1.0-6.0) % Eos % (Auto) 1.6 (1.5-5.0) % Baso % (Auto) 0.9 (0.0-3.0) % Gran # 3.56 (1.4-6.5) Lymph # (Auto) 1.3 (1.2-3.4) Owsley # (Auto) 0.6 (0.1-0.6) Eos # (Auto) 0.1 (0.0-0.7) Baso # (Auto) 0.05 (0.0-2.0) K/mm3 Sodium 134 136 (132-148) mmol/L Potassium 4.1 4.2 (3.6-5.0) mmol/L Chloride 104 105 (98-107) mmol/L Carbon Dioxide 25 24 (21-33) mmol/L Anion Gap 9 L 11 (10-20) BUN 5 L 3 L (7-21) mg/dL Creatinine 0.3 L 0.3 L (0.8-1.5) mg/dl Est GFR ( Amer) > 60 > 60 Est GFR (Non-Af Amer) > 60 > 60 Random Glucose 108 133 H (70-110) mg/dL Calcium 7.7 L 7.6 L (8.4-10.5) mg/dL Phosphorus 3.4 2.9 (2.5-4.5) mg/dL Magnesium 1.6 L 1.9 (1.7-2.2) mg/dL Total Bilirubin 0.3 0.3 (0.2-1.3) mg/dL AST 63 H 75 H (17-59) U/L ALT 36 40 (7-56) U/L Alkaline Phosphatase 187 H 199 H (38-126) U/L Troponin I < 0.01 D ng/mL Total Protein 4.9 L 5.0 L (5.8-8.3) g/dL Albumin 2.0 L 2.1 L (3.0-4.8) g/dL Globulin 2.8 2.9 gm/dL Albumin/Globulin Ratio 0.7 L 0.7 L (1.1-1.8) CSF VDRL (Nonreactive) CSF Cryptococcus Ag (Not Detected) 01/04/18 01/03/18 Range/Units 20:30 15:10 WBC 6.0 (4.5-11.0) 10^3/ul RBC 2.20 L (3.5-6.1) 10^6/uL Hgb 7.9 L (14.0-18.0) g/dL Hct 22.9 L (42.0-52.0) % MCV 104.1 (80.0-105.0) fl MCH 35.9 H (25.0-35.0) pg MCHC 34.5 (31.0-37.0) g/dl RDW 17.0 H (11.5-14.5) % Plt Count 206 (120.0-450.0) 10^3/uL MPV 8.9 (7.0-11.0) fl Gran % (50.0-68.0) % Lymph % (Auto) (22.0-35.0) % Owsley % (Auto) (1.0-6.0) % Eos % (Auto) (1.5-5.0) % Baso % (Auto) (0.0-3.0) % Gran # (1.4-6.5) Lymph # (Auto) (1.2-3.4) Owsley # (Auto) (0.1-0.6) Eos # (Auto) (0.0-0.7) Baso # (Auto) (0.0-2.0) K/mm3 Sodium (132-148) mmol/L Potassium (3.6-5.0) mmol/L Chloride (98-107) mmol/L Carbon Dioxide (21-33) mmol/L Anion Gap (10-20) BUN (7-21) mg/dL Creatinine (0.8-1.5) mg/dl Est GFR ( Amer) Est GFR (Non-Af Amer) Random Glucose (70-110) mg/dL Calcium (8.4-10.5) mg/dL Phosphorus (2.5-4.5) mg/dL Magnesium (1.7-2.2) mg/dL Total Bilirubin (0.2-1.3) mg/dL AST (17-59) U/L ALT (7-56) U/L Alkaline Phosphatase (38-126) U/L Troponin I ng/mL Total Protein (5.8-8.3) g/dL Albumin (3.0-4.8) g/dL Globulin gm/dL Albumin/Globulin Ratio (1.1-1.8) CSF VDRL Nonreactive (Nonreactive) CSF Cryptococcus Ag Not detected (Not Detected) Laboratory Results - last 24 hr 01/03/18 01/04/18 01/04/18 15:10 20:30 20:30 WBC 6.0 RBC 2.20 L Hgb 7.9 L Hct 22.9 L MCV 104.1 MCH 35.9 H MCHC 34.5 RDW 17.0 H Plt Count 206 MPV 8.9 Gran % Lymph % (Auto) [place] % (Auto) Eos % (Auto) Baso % (Auto) Gran # Lymph # (Auto) [place] # (Auto) Eos # (Auto) Baso # (Auto) Sodium 136 Potassium 4.2 Chloride 105 Carbon Dioxide 24 Anion Gap 11 BUN 3 L Creatinine 0.3 L Est GFR ( Amer) > 60 Est GFR (Non-Af Amer) > 60 Random Glucose 133 H Calcium 7.6 L Phosphorus 2.9 Magnesium 1.9 Total Bilirubin 0.3 AST 75 H ALT 40 Alkaline Phosphatase 199 H Troponin I < 0.01 D Total Protein 5.0 L Albumin 2.1 L Globulin 2.9 Albumin/Globulin Ratio 0.7 L CSF VDRL Nonreactive CSF Cryptococcus Ag Not detected 01/05/18 01/05/18 05:40 05:40 WBC 5.6 RBC 2.15 L Hgb 7.7 L Hct 22.5 L MCV 104.7 MCH 35.8 H MCHC 34.2 RDW 17.2 H Plt Count 216 MPV 9.0 Gran % 64.0 Lymph % (Auto) 23.2 [place] % (Auto) 10.3 H Eos % (Auto) 1.6 Baso % (Auto) 0.9 Gran # 3.56 Lymph # (Auto) 1.3 [place] # (Auto) 0.6 Eos # (Auto) 0.1 Baso # (Auto) 0.05 Sodium 134 Potassium 4.1 Chloride 104 Carbon Dioxide 25 Anion Gap 9 L BUN 5 L Creatinine 0.3 L Est GFR ( Amer) > 60 Est GFR (Non-Af Amer) > 60 Random Glucose 108 Calcium 7.7 L Phosphorus 3.4 Magnesium 1.6 L Total Bilirubin 0.3 AST 63 H ALT 36 Alkaline Phosphatase 187 H Troponin I Total Protein 4.9 L Albumin 2.0 L Globulin 2.8 Albumin/Globulin Ratio 0.7 L CSF VDRL CSF Cryptococcus Ag Critical Care Progress Note - Nutrition Nutrition: Nutrition Category Date Time Status NPO Diet [DIET] Diets 12/30/17 Dinner Ordered Attending/Attestation - Attestation I have personally seen and examined this patient.: Yes I have fully participated in the care of the patient.: Yes I have reviewed all pertinent clinical information: Yes Notes (Text): 01/05/18 12:[address] Jimenez note
[2018-01-04 07:20] LABS: ALB/GLOB RATIO 0.7 (1.1-1.8); ALBUMIN 2.2 g/dL (3.0-4.8); ALT/SGPT 35 U/L (7-56); AST/SGOT 69 U/L (17-59); BLOOD UREA NITROGEN 2 mg/dL (7-21); CALCIUM 7.7 mg/dL (8.4-10.5); GFR AFRICAN-AMERICAN > 60; GFR NON-AFRICAN AMERICAN > 60
[2018-01-04] MEDS: Dexmedetomidine 400mcg/100mL 400 MCG/100 ML BOTTLE IV PRN (08:10)
--- NOTE | 2018-01-04 08:44 | RAD ---
HISTORY: intubated, f/u COMPARISON: 01/03/2018 FINDINGS: LUNGS: No active pulmonary disease. PLEURA: No significant pleural effusion identified, no pneumothorax apparent. CARDIOVASCULAR: Normal. OSSEOUS STRUCTURES: No significant abnormalities. VISUALIZED UPPER ABDOMEN: Normal. OTHER FINDINGS: The endotracheal nasogastric tubes and right-sided central lines remain in satisfactory position. IMPRESSION: No active disease.
[2018-01-04] MEDS ORDERED: Magnesium 2 gm/50 ml NS 2 GM/50 ML BAG IVPB ONE (09:49)
[2018-01-04] MEDS ORDERED: Potassium Chloride 40 mEq/30 ml LIQ UD NG SCH (10:00)
[2018-01-04] MEDS: VALPROATE IVPB SCH ×2 (10:16→21:14)
[2018-01-04] MEDS: SODIUM CHLORIDE 0.9% IVPB SCH ×2 (10:16→21:14)
[2018-01-04] MEDS: Enoxaparin 40 mg Syringe SC SCH (10:17)
[2018-01-04] MEDS: levETIRAcetam 1,000 MG in Sodium Chloride 0.9% 100 ML IV SCH ×2 (10:17→21:15)
[2018-01-04] MEDS: Thiamine 500 MG in Sodium Chloride 0.9% 100 ML IV SCH (10:20)
--- NOTE | 2018-01-04 10:24 | PN ---
DATE: 01/04/2018 SUBJECTIVE: The patient is seen and examined at bedside. He is sedated with Versed 7 mg/hour, propofol 40 mcg/kg/minute. He is on acyclovir and he is on enteral nutrition at 50 mL/hour. PHYSICAL EXMINATION: VITAL SIGNS: He is on pressure support 5/5 with FIO2 of 35%. On that setting, his vital signs as follows. Blood pressure 127/73, heart rate of 108, oxygen saturation 100%, end-tidal CO2 on the monitor 32, respiratory rate 13. Rapid shallow breathing index is 54. ENT: Head and neck atraumatic. LUNGS: Clear to auscultation bilaterally. HEART: Regular rate and rhythm. S1 and S2 normal. ABDOMEN: Soft, nontender and nondistended. MUSCULOSKELETAL: No C/C/E. NEURO: The patient is sedated, not responding to touch or painful stimuli. SKIN: Moist. PSYCH: The patient is sedated. LABORATORY DATA: WBC 6.5, hemoglobin 8.3, platelet count 228. Sodium 135, potassium 3.6, chloride 104, carbon dioxide 26, BUN 2, creatinine 0.4, glucose 102. AST 69, down from 94; total bilirubin 0.3, down from 0.5; ALT 35, down from 38. Procalcitonin as of 2 days ago 0.32. ABG today showed 7.5/32/152 (that was on PRVC and since then, the patient was switched to pressure support ventilation). MEDICATIONS: Tylenol p.r.n., acyclovir, Keppra 1000 mg IV every 12, Ativan p.r.n., meropenem, Protonix, normal saline with magnesium 100 mL/hour, thiamine, Depakote, vancomycin, Versed. ASSESSMENT AND PLAN: This is a 52-year-old gentleman, who presented with what appears to be delirium tremens with status epilepticus, with or without viral encephalitis as a contributing factor (DRAMATIC CRITIC fluid revealed 100 lymphocytes with NL protein and glucose level). He was intubated for airway protection and started on acyclovir, benzodiazepines as well as Keppra and Depakote. At present time, we will proceed with tapering down his benzodiazepine regimen, under cover of depakote and keppra, while getting EEG done. If no seizure activity found on EEG once off of benzodiazepines, we will proceed with extubation attempt if pressure support trial tolerated well. Meanwhile, we will continue with head of bed elevated >35 degrees. Oral hygiene. Protective lung ventilation. Spinal tap was done 2 days ago. Absence of RBCs make herpes simplex virus encephalitis much less likely. Whether or not it can rule out herpes simplex virus completely though will be deferred to Infectious Disease Service; however, I doubt it. Herpes simplex virus PCR from the cerebrospinal fluid was also sent. No temporal involvement was found on MRI of the brain, even though there was some thalamic involvement with official report from radiologist suggest viral encephalitis as a part of differential diagnosis. Whether to continue acyclovir will be deferred to Infectious Disease Service. The patient is also on broad-spectrum antibiotics. Meanwhile, cerebrospinal fluid did not have any growth. Blood culture so far was negative. Sputum showed light growth of yeast and positive GS for GPC in clusters in the sputum. Chest x-ray, however, did not show any active pulmonary disease. We will continue to target euvolemia, euglycemia, normothermia and oxygen saturation more than 90%. We will continue to maintain mean arterial pressure more than 65. Avoid nephrotoxins and hyperchloremia. We will continue with deep venous thrombosis, gastrointestinal prophylaxis. Addendum: attempt at tapering down benzodiazepines were unsuccessful and patient had clinical seizures, benzos continues at previous doses as well as keppra and depakote, EEG showed burst suppression while on benzos. Discussed with neuro-->need transfer to facility with continious EEG monitoring. Patient' s refused transfer to any nearby facility with such a capability and decided to proceed with transfer to the hospital with cont EEG monitoring in her home state ([place], [facility]? [phone]). I had lengthy conversation about benefits of transfer patient to nearby facility in [place] and risks associated with lengthy flight to [place]. She verbalzied understanding, but insisted. Dr Gtz accepted the patient and preparation for the flight is underway. ccm time 40 min Juaquin Jimenez MD [facility]
--- NOTE | 2018-01-04 10:56 | CP.PCM.PN ---
Subjective - Date & Time of Evaluation Date of Evaluation: 01/04/18 Time of Evaluation: 10:55 - Subjective Subjective: Nephrology Consultation Note Assessment: Critical Hypokalemia hyponatremia hypomagnesemia Chronic alcohol Abuse with DTs Altered mental status Seizure and ? Meningitis/encephalitis Acute respiratory failure Anemia Plan No acute need for renal replacement therapy at this time. BP controlled Monitor Input/Output, daily weights and electrolytes Supplement Electrolytes as needed added KCL 40 meq/day Dose meds/antibiotics for normal GFR. Glycemic control Further work up as per primary team Thanks for allowing me to participate in care of your patient. Will sign off and follow further PRN. Please call if any Qs. d/w ICU team and Graham Reynoso Office: [phone] Subjective: Noted events overnight. Patients remains intubated Physical Examination: General Appearance: Comfortable, Ill-appearing patient is orally intubated and mechanically ventilated Vitals reviewed and noted as below Head; Atraumatic, normocephalic ENT: intubated Neck; supple no lymphadenopathy, no thyromegaly or bruit Lungs: Normal respiratory rate/effort. Breath sounds bilateral equal and clear Heart: Increased rate. s1s2 normal. No rub or gallop. Extremities: no edema. No varicose veins Neurological: Patient is sedated Skin: Warm and dry. Normal turgor. No rash. Palpitation: Normal elasticity for age Abdomen: Abdomen is soft. Bowel sounds +. There is no abdominal tenderness, no guarding/rigidity no organomegaly Psych: unable MSK: no joint tenderness or swelling. Digits and nails normal, no deformity : kidney or bladder not palpable Labs/imaging reviewed. Past medical history, past surgical history, family history, social history, allergy reviewed and noted as below Family hx: no hx of CKD. Rest non-contributory Workup urine sodium 64 urine osmol 354 Objective - Vital Signs/Intake and Output Vital Signs (last 24 hours): Temp Pulse Resp BP Pulse Ox 98 F 97 H 21 131/68 98 01/04/18 04:00 01/04/18 06:23 01/03/18 23:17 01/04/18 06:00 01/04/18 06:00 Intake and Output: 01/04/18 01/04/18 06:59 18:59 Intake Total 2950 Output Total 1000 Balance 1950 - Medications Medications: Current Medications Acetaminophen (Tylenol 650mg/20.3ml Solution Ud) 650 mg PO Q6H PRN PRN Reason: Fever Last Admin: 01/03/18 00:00 Dose: 650 mg Enoxaparin Sodium (Lovenox) 40 mg SC DAILY [facility] PRN Reason: Protocol Last Admin: 01/04/18 10:17 Dose: 40 mg Acyclovir 750 mg/ Sodium (Chloride) 100 mls @ 100 mls/hr IV Q8 [facility] PRN Reason: Protocol Stop: 01/09/18 11:01 Last Admin: 01/04/18 05:28 Dose: 100 mls/hr Midazolam 100 mg/100ml in NS (Midazolam 100 Mg/100ml In Ns) 100 mg in 100 mls @ 1 mls/hr IV .Q24H PRN; Protocol; 1 MG/HR PRN Reason: Sedation/Seizures Last Admin: 01/04/18 05:42 Dose: 7 mg/hr, 7 mls/hr Levetiracetam 1,000 mg/ Sodium (Chloride) 110 mls @ 460 mls/hr IV Q12 [facility] Last Admin: 01/04/18 10:17 Dose: 460 mls/hr Propofol (Diprivan) 1,000 mg in 100 mls @ 1.569 mls/hr IV .Q24H PRN; Protocol; 5 MCG/KG/MIN PRN Reason: TITRATE PER MD ORDER Last Admin: 01/04/18 02:11 Dose: 40 mcg/kg/min, 12.553 mls/hr Thiamine HCl 500 mg/ Sodium (Chloride) 105 mls @ 202 mls/hr IV DAILY [facility] Last Admin: 01/04/18 10:20 Dose: 202 mls/hr Vancomycin HCl (Vancomycin 1gm) 1 gm in 250 mls @ 167 mls/hr IVPB Q12H [facility] PRN Reason: Protocol Last Admin: 01/04/18 03:10 Dose: 167 mls/hr Meropenem (Merrem Iv 1 Gm Premix) 50 mls @ 100 mls/hr IVPB Q8 [facility] PRN Reason: Protocol Stop: 01/12/18 06:01 Last Admin: 01/04/18 05:29 Dose: 100 mls/hr Valproate Sodium 400 mg/ (Sodium Chloride) 104 mls @ 100 mls/hr IVPB Q12 [facility] Last Admin: 01/04/18 10:16 Dose: 100 mls/hr Magnesium 2 gm/50 ml NS (Magnesium Sulfate 2 Gm/50 Ml Ns) 2 gm in 50 mls @ 50 mls/hr IVPB ONCE [facility] Last Admin: 01/03/18 17:31 Dose: 50 mls/hr Magnesium Sulfate 1 gm/ Sodium (Chloride) 1,002 mls @ 100 mls/hr IV .Q10H2M [facility] Last Admin: 01/04/18 04:22 Dose: 100 mls/hr Dexmedetomidine HCl (Precedex 400mcg/100ml) 400 mcg in 100 mls @ 2.615 mls/hr IV .Q24H PRN; Protocol; 0.2 MCG/KG/HR PRN Reason: Agitation Last Admin: 01/04/18 08:10 Dose: 0.2 mcg/kg/hr, 2.615 mls/hr Potassium Chloride (Potassium Chloride 20 Meq/100 Ml) 20 meq in 100 mls @ 50 mls/hr IVPB Q2H [facility] Stop: 01/04/18 13:59 Last Admin: 01/04/18 10:25 Dose: 50 mls/hr Lorazepam (Ativan) 1 mg IVP Q4H PRN; Protocol PRN Reason: Seizures Last Admin: 01/04/18 10:34 Dose: 1 mg Pantoprazole Sodium (Protonix Inj) 40 mg IVP DAILY [facility] Last Admin: 01/04/18 10:16 Dose: 40 mg Potassium Chloride (Potassium Chloride Oral Soln) 40 meq NG DAILY [facility] Last Admin: 01/04/18 10:25 Dose: 40 meq - Labs Labs: 01/04/18 05:45 01/04/18 05:45 PT 14.4 SECONDS (9.4-12.5) H 12/31/17 04:26 INR 1.26 (0.93-1.08) H 12/31/17 04:26 APTT 38.1 Seconds (25.1-36.5) H 12/31/17 04:26
--- NOTE | 2018-01-04 11:12 | CP.PCM.PN ---
Subjective - Date & Time of Evaluation Date of Evaluation: 01/04/18 Time of Evaluation: 09:30 - Subjective Subjective: Patient continues to be intubated, still having episodes of seizures, no fevers overnight, no diarrhea. Had LP done yesterday. Objective - Vital Signs/Intake and Output Vital Signs (last 24 hours): Temp Pulse Resp BP Pulse Ox 98 F 97 H 21 131/68 98 01/04/18 04:00 01/04/18 06:23 01/03/18 23:17 01/04/18 06:00 01/04/18 06:00 Intake and Output: 01/03/18 01/04/18 18:59 06:59 Intake Total 3110 2950 Output Total 1200 1000 Balance 1910 1950 - Medications Medications: Current Medications Acetaminophen (Tylenol 650mg/20.3ml Solution Ud) 650 mg PO Q6H PRN PRN Reason: Fever Last Admin: 01/03/18 00:00 Dose: 650 mg Acyclovir 750 mg/ Sodium (Chloride) 100 mls @ 100 mls/hr IV Q8 [facility] PRN Reason: Protocol Stop: 01/09/18 11:01 Last Admin: 01/04/18 05:28 Dose: 100 mls/hr Midazolam 100 mg/100ml in NS (Midazolam 100 Mg/100ml In Ns) 100 mg in 100 mls @ 1 mls/hr IV .Q24H PRN; Protocol; 1 MG/HR PRN Reason: Sedation/Seizures Last Admin: 01/04/18 05:42 Dose: 7 mg/hr, 7 mls/hr Levetiracetam 1,000 mg/ Sodium (Chloride) 110 mls @ 460 mls/hr IV Q12 [facility] Last Admin: 01/03/18 22:10 Dose: 460 mls/hr Propofol (Diprivan) 1,000 mg in 100 mls @ 1.569 mls/hr IV .Q24H PRN; Protocol; 5 MCG/KG/MIN PRN Reason: TITRATE PER MD ORDER Last Admin: 01/04/18 02:11 Dose: 40 mcg/kg/min, 12.553 mls/hr Thiamine HCl 500 mg/ Sodium (Chloride) 105 mls @ 202 mls/hr IV DAILY [facility] Last Admin: 01/03/18 10:36 Dose: 202 mls/hr Vancomycin HCl (Vancomycin 1gm) 1 gm in 250 mls @ 167 mls/hr IVPB Q12H [facility] PRN Reason: Protocol Last Admin: 01/04/18 03:10 Dose: 167 mls/hr Meropenem (Merrem Iv 1 Gm Premix) 50 mls @ 100 mls/hr IVPB Q8 [facility] PRN Reason: Protocol Stop: 01/12/18 06:01 Last Admin: 01/04/18 05:29 Dose: 100 mls/hr Valproate Sodium 400 mg/ (Sodium Chloride) 104 mls @ 100 mls/hr IVPB Q12 [facility] Last Admin: 01/03/18 22:09 Dose: 100 mls/hr Magnesium 2 gm/50 ml NS (Magnesium Sulfate 2 Gm/50 Ml Ns) 2 gm in 50 mls @ 50 mls/hr IVPB ONCE [facility] Last Admin: 01/03/18 17:31 Dose: 50 mls/hr Magnesium Sulfate 1 gm/ Sodium (Chloride) 1,002 mls @ 100 mls/hr IV .Q10H2M [facility] Last Admin: 01/04/18 04:22 Dose: 100 mls/hr Lorazepam (Ativan) 1 mg IVP Q4H PRN; Protocol PRN Reason: Seizures Last Admin: 01/02/18 19:19 Dose: 1 mg Pantoprazole Sodium (Protonix Inj) 40 mg IVP DAILY [facility] Last Admin: 01/03/18 09:21 Dose: 40 mg - Labs Labs: 01/04/18 05:45 01/03/18 16:45 PT 14.4 SECONDS (9.4-12.5) H 12/31/17 04:26 INR 1.26 (0.93-1.08) H 12/31/17 04:26 APTT 38.1 Seconds (25.1-36.5) H 12/31/17 04:26 - Constitutional Appears: In Acute Distress, Other (intubated) - ENT Exam Additional comments: ET tube in place - Respiratory Exam Respiratory Exam: Decreased Breath Sounds - Cardiovascular Exam Cardiovascular Exam: +S1, +S2 - GI/Abdominal Exam GI & Abdominal Exam: Soft. absent: Tenderness Assessment and Plan - Assessment and Plan (Free Text) Plan: Assessment Systemic Inflammatory Response Syndrome with ventilator-dependent respiratory failure, consider due to delirium tremens, R/O meningoencephalitis R/O HCAP chronic alcohol abuse dilated cardiomyopathy probably alcohol-related history of C4-T1 fusion surgery with history of possible surgical site skin and skin structure infection in 2017 Plan LP done yesterday and CSF analysis shows only 2 WBC's with glucose, TP normal making meningoencephalitis unlikely especially with normal brain MRI; follow up CSF VDRL, Crypt Ag, cultures, HSV PCR, anti-NMDA receptor antibodies, CMV and EBV PCR continue Vancomycin and will switch Merrem to Azactam because of seizure activity (although Merrem has not been implicated to decrease seizure threshold , Imipenem which is also a carbapenem does), as well as Acyclovir (day 5) for now discussed with
--- NOTE | 2018-01-04 12:40 | PN ---
DATE: 01/04/2018 PULMONARY PROGRESS NOTE: SUBJECTIVE: The patient was seen and examined in the Intensive Care Unit on a ventilator. He is on propofol drip. His oxygen saturation and vital signs are stable. PHYSICAL EXAMINATION: VITAL SIGNS: His vital signs are stable. His pulse is 97, blood pressure is 130/68. The pulse oximetry between 98 and 100. HEENT: Examination of head is normocephalic and atraumatic. NECK: Supple with no jugular vein distentions. CARDIOVASCULAR: S1, S2. No S3. Regular. PULMONARY: Slightly diminished breath sounds at both bases with coarse rhonchi, but no wheezing. GI: Soft, nontender. No organomegaly. EXTREMITIES: No pedal edema. NEUROLOGIC: No focal deficits. LABORATORY DATA: Additional data reviewed. Chest x-ray done this morning shows acute infiltrate and no congestive changes. His other data that is available at this time is his arterial blood gas shows pH of 7.50, pCO2 of 32, and pO2 of 152. ASSESSMENT: 1. Acute respiratory failure. 2. Continue seizure activity. 3. Pulmonary congestion versus aspiration resolving now with clear chest x-ray. PLAN: I have discussed plan with Dr. Juaquin Jimenez. The propofol had to be increased due to continuing seizure activity. His morning's chest x-ray is clear. He is receiving acyclovir, midazolam, propofol, vancomycin, meropenem and lorazepam. We will keep on current ventilator setting and attempt to control seizure activity. Reji Mcconnell MD
--- NOTE | 2018-01-04 14:00 | CARD ---
APPROVED REPORT EXAM: Two-dimensional and M-mode echocardiogram with Doppler and color Doppler. INDICATION Congestive Heart Failure 2D DIMENSIONS Left Atrium (2D)4.0 (1.6-4.0cm)IVSd1.2 (0.7-1.1cm) LVDd4.6 (3.9-5.9cm)PWd1.2 (0.7-1.1cm) M-Mode DIMENSIONS Aortic Root2.90 (2.2-3.7cm)Aortic Cusp Exc.1.70 (1.5-2.0cm) Aortic Valve AoV Peak [id number]/Martha Peak GR.11mmHg Mitral Valve E/A ratio0.0 TDI E/Lateral E'0.0E/Medial E'0.0 Tricuspid Valve TR Peak [id number] Peak Gr.12mmHg LEFT VENTRICLE The systolic function is moderately impaired. RIGHT VENTRICLE The right ventricle is normal size. ATRIA The left atrium is mildly dilated. The right atrium size is normal. AORTIC VALVE The aortic valve is thickened but opens well. There is mild aortic regurgitation. MITRAL VALVE The mitral valve is thickened but opens well. Mitral regurgitation is moderate. TRICUSPID VALVE The tricuspid valve leaflets are thickened , but open well. There is mild tricuspid regurgitation. PULMONIC VALVE The pulmonic valve is not well visualized. <Conclusion> Moderately decreased LV systolic function Dilated LA Mild AI and TR Moderate MR Limited study due to pt on ventilator
[2018-01-04] MEDS: Aztreonam 2 Gm in NS 100mL 100 ML IVPB SCH ×2 (14:08→21:14)
--- NOTE | 2018-01-04 16:08 | PN ---
DATE: 01/04/2018 CARDIOLOGY FOLLOWUP SUBJECTIVE: The patient remains on a ventilator due to recurrent refractory seizures. PHYSICAL EXAMINATION: VITAL SIGNS: Blood pressure is 131/68, the heart rates in the 90s. NECK: Negative JVD. LUNGS: Without rales. HEART: Reveals S1, S2. EXTREMITIES: Without edema. LABORATORY DATA: Hemoglobin is 8.3. Chemistries, creatinine is 0.4. IMPRESSION: 1. Recurrent seizures. 2. Respiratory failure. 3. Alcoholism. 4. Dilated cardiomyopathy. 5. Mitral regurgitation. 6. Hypokalemia. PLAN: Given these findings, the patient continues to experience breakthrough seizures. I have discussed with the family the patient's condition including his cardiac status in which they are well aware. They are making plans to transfer the patient by emergency plane back to [place]. Hakeem Bassett MD
--- NOTE | 2018-01-04 16:15 | PN ---
DATE: 01/04/2018 SUBJECTIVE: I saw him in the Intensive Care Unit. He is still on the ventilator. We are trying to get him off the ventilator. I was watching him this morning, his is present, and he had a seizure right in front of us. He is having a very less time. He is on acyclovir, Ativan, Diprivan, levetiracetam, Lovenox, magnesium replacement, Merrem IV, midazolam, Precedex, Protonix, thiamine, Tylenol, valproic, sodium and vancomycin. PHYSICAL EXAMINATION VITAL SIGNS: He has a 98 temperature, 100 pulse, 151/81 blood pressure, 99% O2 sat on mechanical ventilator. HEENT: His head is atraumatic and normocephalic. HEART: Regular rate, tachy in the 100s. LUNGS: Decreased breath sounds, but clear. ABDOMEN: Soft. EXTREMITIES: No edema and I witnessed the seizure right in front of me as they were trying to wean him off the ventilator. LABORATORY DATA: He has a 6.5 white count, 8.3 hemoglobin, 24.4 hematocrit, 228 platelets. Sodium 135, potassium is up to 3.6 after replacement, BUN 2, creatinine 0.4, GFR is greater than 60, sugar is 102, calcium is 7.7, phosphorus 3.1, magnesium 1.8, total bilirubin is 0.3, AST is 69, ALT is 35, alkaline phosphatase 193, total protein is 5.3. ASSESSMENT AND PLAN: He is in critical condition with fair amount of stress. We will try to wean him. Discussed at length with the and the sales estimator. [place] is [place]. He is from [place]. He has seizures, low sodium, alcohol withdrawal, he is alcoholic. He has got diabetes and anemia. Julian West DO
[2018-01-04 18:26] VITALS: O2SAT 100
[2018-01-04] MEDS ORDERED: Sodium Chloride 0.9% 1,000 ML IV STA (19:08)
[2018-01-04 20:42] LABS: HEMOGLOBIN 7.9 g/dL (14.0-18.0); MEAN CELL VOLUME 104.1 fl (80.0-105.0); MEAN CORPUSCULAR HEMOGLOBIN 35.9 pg (25.0-35.0); MEAN CORPUSCULAR HGB CONC 34.5 g/dl (31.0-37.0); MEAN PLATELET VOLUME 8.9 fl (7.0-11.0); RBC 2.2 10^6/uL (3.5-6.1)
[2018-01-04 20:57] LABS: ALB/GLOB RATIO 0.7 (1.1-1.8); ALBUMIN 2.1 g/dL (3.0-4.8); ALT/SGPT 40 U/L (7-56); AST/SGOT 75 U/L (17-59); BLOOD UREA NITROGEN 3 mg/dL (7-21); CALCIUM 7.6 mg/dL (8.4-10.5); GFR AFRICAN-AMERICAN > 60; GFR NON-AFRICAN AMERICAN > 60
[2018-01-04 21:04] LABS: TROPONIN I < 0.01 ng/mL
[2018-01-05] MEDS: Vancomycin 1gm in NS 250ml 1 GM/250 ML BAG IVPB SCH (01:19)
[2018-01-05] MEDS: Propofol 10 mg/ml 1,000 MG/100 ML VIAL IV PRN ×3 (01:21→12:53)
[2018-01-05] MEDS: Aztreonam 2 Gm in NS 100mL 100 ML IVPB SCH (05:12)
[2018-01-05 06:11] LABS: BASO # 0.05 K/mm3 (0.0-2.0); BASO % 0.9 % (0.0-3.0); EOS # 0.1 (0.0-0.7); EOS % 1.6 % (1.5-5.0); GRAN # 3.56 (1.4-6.5); HEMOGLOBIN 7.7 g/dL (14.0-18.0); LYMPH # 1.3 (1.2-3.4); LYMPH % 23.2 % (22.0-35.0); MEAN CELL VOLUME 104.7 fl (80.0-105.0); MEAN CORPUSCULAR HEMOGLOBIN 35.8 pg (25.0-35.0); MEAN CORPUSCULAR HGB CONC 34.2 g/dl (31.0-37.0); MONO # 0.6 (0.1-0.6); MONO % 10.3 % (1.0-6.0); RBC 2.15 10^6/uL (3.5-6.1); RED CELL DISTRIBUTION WIDTH 17.2 % (11.5-14.5); WHITE BLOOD COUNT 5.6 10^3/ul (4.5-11.0)
[2018-01-05 06:14] VITALS: TEMP 97.7
[2018-01-05 06:43] LABS: ALB/GLOB RATIO 0.7 (1.1-1.8); ALT/SGPT 36 U/L (7-56); AST/SGOT 63 U/L (17-59); BLOOD UREA NITROGEN 5 mg/dL (7-21); CALCIUM 7.7 mg/dL (8.4-10.5); GFR AFRICAN-AMERICAN > 60; GFR NON-AFRICAN AMERICAN > 60
[2018-01-05] MEDS: Magnesium 2 gm/50 ml NS 2 GM/50 ML BAG IVPB SCH ×2 (08:29→10:10)
--- NOTE | 2018-01-05 08:46 | RAD ---
HISTORY: Intubated/follow-up. COMPARISON: Multiple serial examinations preceding the most recent study: January 04, 2018. FINDINGS: LUNGS: No active pulmonary disease. PLEURA: No significant pleural effusion identified, no pneumothorax apparent. CARDIOVASCULAR: No radiographic findings to suggest acute or significant cardiovascular disease. OSSEOUS STRUCTURES: No significant abnormalities. VISUALIZED UPPER ABDOMEN: Normal. OTHER FINDINGS: Stable, satisfactory position ventilatory, vascular and nasogastric apparatus. IMPRESSION: No active disease. No significant interval change compared to the prior examination(s).
--- NOTE | 2018-01-05 09:31 | RAD ---
HISTORY: ETT switch, confirm placement COMPARISON: 01/05/2018 FINDINGS: LUNGS: No active pulmonary disease. PLEURA: No significant pleural effusion identified, no pneumothorax apparent. CARDIOVASCULAR: Normal. OSSEOUS STRUCTURES: No significant abnormalities. VISUALIZED UPPER ABDOMEN: Normal. OTHER FINDINGS: Central lines and tubes are unchanged IMPRESSION: No active disease.
[2018-01-05] MEDS: VALPROATE IVPB SCH (10:03)
[2018-01-05] MEDS: SODIUM CHLORIDE 0.9% IVPB SCH (10:03)
[2018-01-05] MEDS: Thiamine 500 MG in Sodium Chloride 0.9% 100 ML IV SCH (10:04)
[2018-01-05] MEDS: levETIRAcetam 1,000 MG in Sodium Chloride 0.9% 100 ML IV SCH (10:05)
[2018-01-05] MEDS: Enoxaparin 40 mg Syringe SC SCH (10:06)
--- NOTE | 2018-01-05 10:36 | CP.PCM.PN ---
Subjective - Date & Time of Evaluation Date of Evaluation: 01/05/18 Time of Evaluation: 10:00 - Subjective Subjective: Continues to be intubated and sedated, had a low grade temperature but no outright fevers overnight. No diarrhea. Objective - Vital Signs/Intake and Output Vital Signs (last 24 hours): Temp Pulse Resp BP Pulse Ox 97.7 F 76 22 107/65 100 01/05/18 04:00 01/05/18 07:59 01/04/18 17:05 01/05/18 08:00 01/05/18 07:59 Intake and Output: 01/05/18 01/05/18 06:59 18:59 Intake Total 6200 100 Output Total 3175 Balance 3025 100 - Medications Medications: Current Medications Acetaminophen (Tylenol 650mg/20.3ml Solution Ud) 650 mg PO Q6H PRN PRN Reason: Fever Last Admin: 01/03/18 00:00 Dose: 650 mg Enoxaparin Sodium (Lovenox) 40 mg SC DAILY [facility] PRN Reason: Protocol Last Admin: 01/04/18 10:17 Dose: 40 mg Acyclovir 750 mg/ Sodium (Chloride) 100 mls @ 100 mls/hr IV Q8 [facility] PRN Reason: Protocol Stop: 01/09/18 11:01 Last Admin: 01/05/18 05:13 Dose: 100 mls/hr Midazolam 100 mg/100ml in NS (Midazolam 100 Mg/100ml In Ns) 100 mg in 100 mls @ 1 mls/hr IV .Q24H PRN; Protocol; 1 MG/HR PRN Reason: Sedation/Seizures Last Admin: 01/04/18 21:10 Dose: 7 mg/hr, 7 mls/hr Levetiracetam 1,000 mg/ Sodium (Chloride) 110 mls @ 460 mls/hr IV Q12 [facility] Last Admin: 01/04/18 21:15 Dose: 460 mls/hr Propofol (Diprivan) 1,000 mg in 100 mls @ 1.569 mls/hr IV .Q24H PRN; Protocol; 5 MCG/KG/MIN PRN Reason: TITRATE PER MD ORDER Last Admin: 01/05/18 08:31 Dose: 40 mcg/kg/min, 12.553 mls/hr Thiamine HCl 500 mg/ Sodium (Chloride) 105 mls @ 202 mls/hr IV DAILY [facility] Last Admin: 01/04/18 10:20 Dose: 202 mls/hr Vancomycin HCl (Vancomycin 1gm) 1 gm in 250 mls @ 167 mls/hr IVPB Q12H [facility] PRN Reason: Protocol Last Admin: 01/05/18 01:19 Dose: 167 mls/hr Valproate Sodium 400 mg/ (Sodium Chloride) 104 mls @ 100 mls/hr IVPB Q12 [facility] Last Admin: 01/04/18 21:14 Dose: 100 mls/hr Dexmedetomidine HCl (Precedex 400mcg/100ml) 400 mcg in 100 mls @ 2.615 mls/hr IV .Q24H PRN; Protocol; 0.2 MCG/KG/HR PRN Reason: Agitation Last Admin: 01/04/18 08:10 Dose: 0.2 mcg/kg/hr, 2.615 mls/hr Aztreonam (Azactam 2 Gm) 100 mls @ 100 mls/hr IVPB Q8 [facility] PRN Reason: Protocol Stop: 01/11/18 14:01 Last Admin: 01/05/18 05:12 Dose: 100 mls/hr Magnesium Sulfate 1 gm/ Sodium (Chloride) 1,002 mls @ 100 mls/hr IV .Q10H2M [facility] Last Admin: 01/05/18 02:06 Dose: 100 mls/hr Magnesium 2 gm/50 ml NS (Magnesium Sulfate 2 Gm/50 Ml Ns) 2 gm in 50 mls @ 50 mls/hr IVPB Q2H [facility] Stop: 01/05/18 10:59 Last Admin: 01/05/18 08:29 Dose: 50 mls/hr Lorazepam (Ativan) 1 mg IVP Q4H PRN; Protocol PRN Reason: Seizures Last Admin: 01/04/18 10:34 Dose: 1 mg Pantoprazole Sodium (Protonix Inj) 40 mg IVP DAILY [facility] Last Admin: 01/04/18 10:16 Dose: 40 mg Potassium Chloride (Potassium Chloride Oral Soln) 40 meq NG DAILY [facility] Last Admin: 01/04/18 10:25 Dose: 40 meq - Labs Labs: 01/05/18 05:40 01/05/18 05:40 PT 14.4 SECONDS (9.4-12.5) H 12/31/17 04:26 INR 1.26 (0.93-1.08) H 12/31/17 04:26 APTT 38.1 Seconds (25.1-36.5) H 12/31/17 04:26 - Constitutional Appears: Other (intubated and sedated) - Head Exam Head Exam: NORMAL INSPECTION - ENT Exam Additional comments: ET tube in place - Respiratory Exam Respiratory Exam: Rhonchi (scattered). absent: Rales - Cardiovascular Exam Cardiovascular Exam: +S1, +S2 - GI/Abdominal Exam GI & Abdominal Exam: Soft. absent: Tenderness - Extremities Exam Additional comments: right arm PICC line in place Assessment and Plan - Assessment and Plan (Free Text) Plan: Assessment Systemic Inflammatory Response Syndrome with ventilator-dependent respiratory failure, consider due to delirium tremens, R/O HCAP / aspiration pneumonia, unlikely meningoencephalitis based on CSF analysis chronic alcohol abuse dilated cardiomyopathy probably alcohol-related history of C4-T1 fusion surgery with history of possible surgical site skin and skin structure infection in 2017 Plan LP done 2 days ago and CSF analysis shows only 2 WBC's with glucose, TP normal making meningoencephalitis unlikely especially with normal brain MRI; follow up CSF VDRL, Crypt Ag, cultures, HSV PCR, anti-NMDA receptor antibodies, CMV and EBV PCR continue Vancomycin and Azactam because of seizure activity (although Merrem has not been implicated to decrease seizure threshold, Imipenem which is also a carbapenem does), as well as Acyclovir (day 6) for now discussed with previously patient apparently to be transferred to [place] today
[2018-01-05] MEDS ORDERED: levETIRAcetam 1,500 MG in Sodium Chloride 0.9% 100 ML IV ONE (10:57)
[2018-01-05] MEDS ORDERED: Valproate 1,500 MG in Sodium Chloride 0.9% 100 ML IVPB ONE (10:58)
[2018-01-05] MEDS: Dexmedetomidine 400mcg/100mL 400 MCG/100 ML BOTTLE IV PRN (12:06)
[2018-01-05] MEDS ORDERED: Propofol 10 mg/ml 1,000 MG/100 ML VIAL ONE (12:42)
[2018-01-05] MEDS: Midazolam 100 mg/100ml in NS 100 MG/100 ML SOL IV PRN (12:51)
--- NOTE | 2018-01-05 13:03 | PN ---
DATE: 01/05/2018 CARDIOLOGY FOLLOWUP SUBJECTIVE: The patient remains on a ventilator. PHYSICAL EXAMINATION: VITAL SIGNS: Blood pressure is 107/65, the heart rates in the 70s. NECK: Negative JVD. LUNGS: No rales noted. HEART: Reveals S1, S2. EXTREMITIES: Without edema. LABORATORY DATA: Hemoglobin is 7.7. BUN and creatinine unremarkable. IMPRESSION: 1. Refractory seizures. 2. Respiratory failure. 3. Dilated cardiomyopathy. 4. Mitral regurgitation. 5. Alcoholism. PLAN: Given these findings, the patient is being transferred back [facility] [place] [facility]. I have discussed with the patient's about making sure that she follows up with a senior qa automation engineer concerning his LV dysfunction. Hakeem Bassett MD
[2018-01-05 13:29] VITALS: BP 118/64; PULSE 75; RESP 18
[2018-01-05 14:18] LABS: SOURCE: PLASMA
--- NOTE | 2018-01-05 14:38 | CP.CCUPN ---
<Hood Mathews - Last Filed: 01/05/18 14:34> CCU Subjective - Physician Review Subjective (Free Text): 01/05/18 08:47 Patient seen and examined at bedside in ICU. Remains intubated and sedated on Propofol/Versed/Precedex. No additional seizure activity reported overnight. Pending Life-Flight Transfer to [facility] in [facility] today, as requested/arranged by pt's . As per Neuro's recs, patient given additional dose of Keppra (1.5g) and Valproic Acid (1.5g) IV x1 each prior to transport, and Propofol sedation increased to 50 as per their recs. Risks of transport again reviewed with , who expressed understanding but still wished to transport patient. Patient accepted to [facility] yesterday, EMTALA paperwork filled out and placed in chart to go with patient. CCU Objective - Vital Signs / Intake & Output Vital Signs (Last 4 hours): Vital Signs Pulse Resp BP Pulse Ox 01/05/18 12:54 75 18 01/05/18 12:53 76 14 01/05/18 12:52 118/64 01/05/18 12:51 74 14 100 01/05/18 12:50 78 14 100 01/05/18 12:49 77 15 100 01/05/18 12:48 75 14 01/05/18 12:47 79 16 01/05/18 12:46 81 15 01/05/18 12:45 84 14 01/05/18 12:44 82 17 83 L 01/05/18 12:43 86 16 89 L 01/05/18 12:42 81 17 100 01/05/18 12:41 82 17 95 01/05/18 12:40 81 17 100 01/05/18 12:39 81 15 100 01/05/18 12:38 81 18 100 01/05/18 12:37 81 16 98 01/05/18 12:36 79 16 100 01/05/18 12:35 80 16 97 01/05/18 12:34 79 17 97 01/05/18 12:33 80 17 100 01/05/18 12:32 82 18 100 01/05/18 12:31 81 16 100 01/05/18 12:30 80 16 100 01/05/18 12:29 81 17 99 01/05/18 12:28 81 16 99 01/05/18 12:27 81 18 100 01/05/18 12:26 83 17 100 01/05/18 12:25 84 17 100 01/05/18 12:24 85 17 100 01/05/18 12:23 89 17 100 01/05/18 12:22 91 H 14 100 01/05/18 12:21 82 14 100 01/05/18 12:20 75 14 100 01/05/18 12:19 76 14 100 01/05/18 12:18 75 16 100 01/05/18 12:17 74 14 100 01/05/18 12:16 75 19 100 01/05/18 12:15 75 15 100 01/05/18 12:14 74 14 100 01/05/18 12:13 75 15 100 01/05/18 12:12 74 15 100 01/05/18 12:00 78 113/54 L 100 01/05/18 11:30 79 99 01/05/18 11:19 78 01/05/18 11:18 79 01/05/18 11:17 81 01/05/18 11:16 79 01/05/18 11:15 81 01/05/18 11:14 80 01/05/18 11:13 80 01/05/18 11:12 80 01/05/18 11:11 79 01/05/18 11:10 80 01/05/18 11:09 81 01/05/18 11:08 78 01/05/18 11:07 79 01/05/18 11:06 79 01/05/18 11:05 79 01/05/18 11:04 79 01/05/18 11:03 78 01/05/18 11:02 79 01/05/18 11:01 83 01/05/18 11:00 124/63 01/05/18 10:59 81 01/05/18 10:58 80 01/05/18 10:57 79 01/05/18 10:56 81 01/05/18 10:55 79 Intake and Output (Last 8hrs): Intake & Output 01/04/18 01/05/18 01/05/18 22:59 06:59 14:59 Intake Total 3210 3090 400 Output Total 1675 1500 Balance 1535 1590 400 Weight 55.293 kg Intake: IV 2400 2150 400 Left Hand 500 500 Left Upper arm 400 500 Right Internal Jugular 300 Right Upper arm 1000 1050 Tube Feeding 810 840 Other 100 Output: Urine 1575 1500 Urethral (Terrell) 1575 1500 Stool 100 Emesis 0 Other: # Bowel Movements 1 1 - Physical Exam Head: Positive for: Atraumatic, Normocephalic Pupils: Positive for: PERRL (responsive when manually opening eyes and with direct light challenge, equal bilaterally), Sluggish Extroacular Muscles: Positive for: Other (not moving, not avoiding direct light challenge, eyes held midline without any twiching/nystagmus-like movements appreciated). Negative for: EOMI Conjunctiva: Positive for: Normal. Negative for: Injected, Icteric Mouth: Positive for: Moist Mucous Membranes, Other (ETT in place) Nose (External): Positive for: Atraumatic. Negative for: Abrasion, Laceration, Lesions Nose (Internal): Positive for: Normal Inspection, No Active Bleeding. Negative for: Epistaxis Neck: Positive for: Other (sedated/AMS, no appreciate spontaneous movement of neck appreciated, but passive ROM intact, no rigidity or abnormal barriers to movement appreciated) Respiratory/Chest: Positive for: Clear to Auscultation, Good Air Exchange, Rhonchi (faint ronchi in all holguin, including same faint sounds in neck), Other (mechanically ventilated, overbreathing ventilator). Negative for: Respiratory Distress, Accessory Muscle Use, Wheezes, Rales, Retracting Cardiovascular: Positive for: Normal S1, S2, Peripheal Pulses Present (+1-2 radial and dorsalis pedis bilaterally), Tachycardic. Negative for: Regular Rate and Rhythm, Murmurs, Irregular Rhythm, Bradycardic Abdomen: Positive for: Normal Bowel Sounds, Other (unable to assess tenderness due to sedation/AMS, but no gross reaction or guarding on palpation). Negative for: Distention, Peritoneal Signs, Rebound, Feeding Tubes, Mass/Organomegaly Back: Positive for: Normal Inspection Upper Extremity: Positive for: Normal Inspection, NORMAL PULSES. Negative for: Cyanosis, Edema, Normal ROM (no spontaneous or directed movements of limbs, held flaccidly), Swelling, Erythema, Deformity Lower Extremity: Positive for: Normal Inspection, NORMAL PULSES. Negative for: Edema, Cyanosis, Normal ROM (no spontaneous or directed movements of limbs, held flaccidly), Swelling, Erythema, Deformity Neurological: Positive for: Other (heavily sedated, no spontaneous or directed motions observed, all extremities held flaccidly). Negative for: GCS=15 ( sedated and intubated, GCS = 3 (E1 V1t M1)) Skin: Positive for: Warm, Dry, Normal Color. Negative for: Rashes Psychiatric: Positive for: Other (Sedated/AMS, intubated, so unable to assess) - Medications Active Medications: Active Medications Generic Name Dose Route Start Last Admin Trade Name Freq PRN Reason Stop Dose Admin Acetaminophen 650 mg 01/02/18 16:48 01/03/18 00:00 Tylenol 650mg/20.3ml Solution Ud PO 650 mg Q6H PRN Administration Fever Enoxaparin Sodium 40 mg 01/04/18 10:00 01/05/18 10:06 Lovenox SC 40 mg DAILY SHERRIE Administration Protocol Acyclovir 750 mg/ Sodium 100 mls @ 100 mls/hr 12/31/17 11:00 01/05/18 05:13 Chloride IV 01/09/18 11:01 100 mls/hr Q8 SHERRIE Administration Protocol Midazolam 100 mg/100ml in NS 100 mg in 100 mls @ 1 mls/hr 01/02/18 10:24 08/24 12:51 Midazolam 100 Mg/100ml In Ns IV 7 mg/hr .Q24H PRN 7 mls/hr Sedation/Seizures Administration Protocol 1 MG/HR Levetiracetam 1,000 mg/ Sodium 110 mls @ 460 mls/hr 01/02/18 10:45 01/05/18 10:05 Chloride IV 460 mls/hr Q12 SHERRIE Administration Propofol 1,000 mg in 100 mls @ 1.569 mls/hr 01/02/18 10:44 01/05/18 12:53 Diprivan IV 40 mcg/kg/min .Q24H PRN 12.553 mls/hr TITRATE PER MD ORDER Administration Protocol 5 MCG/KG/MIN Thiamine HCl 500 mg/ Sodium 105 mls @ 202 mls/hr 01/02/18 14:16 01/05/18 10: 04 Chloride IV 202 mls/hr DAILY SHERRIE Administration Vancomycin HCl 1 gm in 250 mls @ 167 mls/hr 01/02/18 14:15 01/05/18 01:19 Vancomycin 1gm IVPB 167 mls/hr Q12H SHERRIE Administration Protocol Valproate Sodium 400 mg/ 104 mls @ 100 mls/hr 01/03/18 11:33 01/05/18 10:03 Sodium Chloride IVPB 100 mls/hr Q12 SHERRIE Administration Dexmedetomidine HCl 400 mcg in 100 mls @ 2.615 mls/hr 01/04/18 07:49 12:06 Precedex 400mcg/100ml IV 0.2 mcg/kg/hr .Q24H PRN 2.615 mls/hr Agitation Administration Protocol 0.2 MCG/KG/HR Aztreonam 100 mls @ 100 mls/hr 01/04/18 14:00 01/05/18 05:12 Azactam 2 Gm IVPB 01/11/18 14:01 100 mls/hr Q8 SHERRIE Administration Protocol Magnesium Sulfate 1 gm/ Sodium 1,002 mls @ 100 mls/hr 01/05/18 01:06 02:06 Chloride IV 100 mls/hr .Q10H2M SHERRIE Administration Lorazepam 1 mg 01/01/18 16:58 01/04/18 10:34 Ativan IVP 1 mg Q4H PRN Administration Seizures Protocol Pantoprazole Sodium 40 mg 12/31/17 10:00 01/04/18 10:16 Protonix Inj IVP 40 mg DAILY SHERRIE Administration Potassium Chloride 40 meq 01/04/18 10:00 01/04/18 10:25 Potassium Chloride Oral Soln NG 40 meq DAILY SHERRIE Administration - Patient Studies Lab Studies: Microbiology Studies 01/03/18 15:10 Gram Stain - Final Cerebral Spinal Fluid CSF Culture - Preliminary NO GROWTH AFTER 2 DAYS 01/02/18 11:00 Blood Culture - Preliminary Blood NO GROWTH AFTER 3 DAYS 01/02/18 18:45 Gram Stain - Final Trachasp Sputum Culture - Final No growth. Lab Studies 01/05/18 01/05/18 01/05/18 Range/Units 12:42 05:40 05:40 WBC 5.6 (4.5-11.0) 10^3/ul RBC 2.15 L (3.5-6.1) 10^6/uL Hgb 7.7 L (14.0-18.0) g/dL Hct 22.5 L (42.0-52.0) % MCV 104.7 (80.0-105.0) fl MCH 35.8 H (25.0-35.0) pg MCHC 34.2 (31.0-37.0) g/dl RDW 17.2 H (11.5-14.5) % Plt Count 216 (120.0-450.0) 10^3/uL MPV 9.0 (7.0-11.0) fl Gran % 64.0 (50.0-68.0) % Lymph % (Auto) 23.2 (22.0-35.0) % Gem % (Auto) 10.3 H (1.0-6.0) % Eos % (Auto) 1.6 (1.5-5.0) % Baso % (Auto) 0.9 (0.0-3.0) % Gran # 3.56 (1.4-6.5) Lymph # (Auto) 1.3 (1.2-3.4) Gem # (Auto) 0.6 (0.1-0.6) Eos # (Auto) 0.1 (0.0-0.7) Baso # (Auto) 0.05 (0.0-2.0) K/mm3 Sodium 134 (132-148) mmol/L Potassium 4.1 (3.6-5.0) mmol/L Chloride 104 (98-107) mmol/L Carbon Dioxide 25 (21-33) mmol/L Anion Gap 9 L (10-20) BUN 5 L (7-21) mg/dL Creatinine 0.3 L (0.8-1.5) mg/dl Est GFR ( Amer) > 60 Est GFR (Non-Af Amer) > 60 POC Glucose (mg/dL) 100 (65-110) mg/dL Random Glucose 108 (70-110) mg/dL Calcium 7.7 L (8.4-10.5) mg/dL Phosphorus 3.4 (2.5-4.5) mg/dL Magnesium 1.6 L (1.7-2.2) mg/dL Total Bilirubin 0.3 (0.2-1.3) mg/dL AST 63 H (17-59) U/L ALT 36 (7-56) U/L Alkaline Phosphatase 187 H (38-126) U/L Troponin I ng/mL Total Protein 4.9 L (5.8-8.3) g/dL Albumin 2.0 L (3.0-4.8) g/dL Globulin 2.8 gm/dL Albumin/Globulin Ratio 0.7 L (1.1-1.8) CSF Cryptococcus Ag (Not Detected) CMV Specimen Source CMV DNA Quant PCR IU/mL CMV Qnt PCR log IU/mL Log IU/mL 01/04/18 01/04/18 01/03/18 Range/Units 20:30 20:30 15:10 WBC 6.0 (4.5-11.0) 10^3/ul RBC 2.20 L (3.5-6.1) 10^6/uL Hgb 7.9 L (14.0-18.0) g/dL Hct 22.9 L (42.0-52.0) % MCV 104.1 (80.0-105.0) fl MCH 35.9 H (25.0-35.0) pg MCHC 34.5 (31.0-37.0) g/dl RDW 17.0 H (11.5-14.5) % Plt Count 206 (120.0-450.0) 10^3/uL MPV 8.9 (7.0-11.0) fl Gran % (50.0-68.0) % Lymph % (Auto) (22.0-35.0) % Gem % (Auto) (1.0-6.0) % Eos % (Auto) (1.5-5.0) % Baso % (Auto) (0.0-3.0) % Gran # (1.4-6.5) Lymph # (Auto) (1.2-3.4) Gem # (Auto) (0.1-0.6) Eos # (Auto) (0.0-0.7) Baso # (Auto) (0.0-2.0) K/mm3 Sodium 136 (132-148) mmol/L Potassium 4.2 (3.6-5.0) mmol/L Chloride 105 (98-107) mmol/L Carbon Dioxide 24 (21-33) mmol/L Anion Gap 11 (10-20) BUN 3 L (7-21) mg/dL Creatinine 0.3 L (0.8-1.5) mg/dl Est GFR ( Amer) > 60 Est GFR (Non-Af Amer) > 60 POC Glucose (mg/dL) (65-110) mg/dL Random Glucose 133 H (70-110) mg/dL Calcium 7.6 L (8.4-10.5) mg/dL Phosphorus 2.9 (2.5-4.5) mg/dL Magnesium 1.9 (1.7-2.2) mg/dL Total Bilirubin 0.3 (0.2-1.3) mg/dL AST 75 H (17-59) U/L ALT 40 (7-56) U/L Alkaline Phosphatase 199 H (38-126) U/L Troponin I < 0.01 D ng/mL Total Protein 5.0 L (5.8-8.3) g/dL Albumin 2.1 L (3.0-4.8) g/dL Globulin 2.9 gm/dL Albumin/Globulin Ratio 0.7 L (1.1-1.8) CSF Cryptococcus Ag Not detected (Not Detected) CMV Specimen Source CMV DNA Quant PCR IU/mL CMV Qnt PCR log IU/mL Log IU/mL 01/02/18 Range/Units 14:00 WBC (4.5-11.0) 10^3/ul RBC (3.5-6.1) 10^6/uL Hgb (14.0-18.0) g/dL Hct (42.0-52.0) % MCV (80.0-105.0) fl MCH (25.0-35.0) pg MCHC (31.0-37.0) g/dl RDW (11.5-14.5) % Plt Count (120.0-450.0) 10^3/uL MPV (7.0-11.0) fl Gran % (50.0-68.0) % Lymph % (Auto) (22.0-35.0) % Gem % (Auto) (1.0-6.0) % Eos % (Auto) (1.5-5.0) % Baso % (Auto) (0.0-3.0) % Gran # (1.4-6.5) Lymph # (Auto) (1.2-3.4) Gem # (Auto) (0.1-0.6) Eos # (Auto) (0.0-0.7) Baso # (Auto) (0.0-2.0) K/mm3 Sodium (132-148) mmol/L Potassium (3.6-5.0) mmol/L Chloride (98-107) mmol/L Carbon Dioxide (21-33) mmol/L Anion Gap (10-20) BUN (7-21) mg/dL Creatinine (0.8-1.5) mg/dl Est GFR ( Amer) Est GFR (Non-Af Amer) POC Glucose (mg/dL) (65-110) mg/dL Random Glucose (70-110) mg/dL Calcium (8.4-10.5) mg/dL Phosphorus (2.5-4.5) mg/dL Magnesium (1.7-2.2) mg/dL Total Bilirubin (0.2-1.3) mg/dL AST (17-59) U/L ALT (7-56) U/L Alkaline Phosphatase (38-126) U/L Troponin I ng/mL Total Protein (5.8-8.3) g/dL Albumin (3.0-4.8) g/dL Globulin gm/dL Albumin/Globulin Ratio (1.1-1.8) CSF Cryptococcus Ag (Not Detected) CMV Specimen Source Plasma CMV DNA Quant PCR <200 IU/mL CMV Qnt PCR log IU/mL <2.30 Log IU/mL Laboratory Results - last 24 hr 01/02/18 01/03/18 01/04/18 14:00 15:10 20:30 WBC 6.0 RBC 2.20 L Hgb 7.9 L Hct 22.9 L MCV 104.1 MCH 35.9 H MCHC 34.5 RDW 17.0 H Plt Count 206 MPV 8.9 Gran % Lymph % (Auto) Gem % (Auto) Eos % (Auto) Baso % (Auto) Gran # Lymph # (Auto) Gem # (Auto) Eos # (Auto) Baso # (Auto) Sodium Potassium Chloride Carbon Dioxide Anion Gap BUN Creatinine Est GFR ( Amer) Est GFR (Non-Af Amer) POC Glucose (mg/dL) Random Glucose Calcium Phosphorus Magnesium Total Bilirubin AST ALT Alkaline Phosphatase Troponin I Total Protein Albumin Globulin Albumin/Globulin Ratio CSF Cryptococcus Ag Not detected CMV Specimen Source Plasma CMV DNA Quant PCR <200 CMV Qnt PCR log IU/mL <2.30 01/04/18 01/05/18 01/05/18 20:30 05:40 05:40 WBC 5.6 RBC 2.15 L Hgb 7.7 L Hct 22.5 L MCV 104.7 MCH 35.8 H MCHC 34.2 RDW 17.2 H Plt Count 216 MPV 9.0 Gran % 64.0 Lymph % (Auto) 23.2 Gem % (Auto) 10.3 H Eos % (Auto) 1.6 Baso % (Auto) 0.9 Gran # 3.56 Lymph # (Auto) 1.3 Gem # (Auto) 0.6 Eos # (Auto) 0.1 Baso # (Auto) 0.05 Sodium 136 134 Potassium 4.2 4.1 Chloride 105 104 Carbon Dioxide 24 25 Anion Gap 11 9 L BUN 3 L 5 L Creatinine 0.3 L 0.3 L Est GFR ( Amer) > 60 > 60 Est GFR (Non-Af Amer) > 60 > 60 POC Glucose (mg/dL) Random Glucose 133 H 108 Calcium 7.6 L 7.7 L Phosphorus 2.9 3.4 Magnesium 1.9 1.6 L Total Bilirubin 0.3 0.3 AST 75 H 63 H ALT 40 36 Alkaline Phosphatase 199 H 187 H Troponin I < 0.01 D Total Protein 5.0 L 4.9 L Albumin 2.1 L 2.0 L Globulin 2.9 2.8 Albumin/Globulin Ratio 0.7 L 0.7 L CSF Cryptococcus Ag CMV Specimen Source CMV DNA Quant PCR CMV Qnt PCR log IU/mL 01/05/18 12:42 WBC RBC Hgb Hct MCV MCH MCHC RDW Plt Count MPV Gran % Lymph % (Auto) Gem % (Auto) Eos % (Auto) Baso % (Auto) Gran # Lymph # (Auto) Gem # (Auto) Eos # (Auto) Baso # (Auto) Sodium Potassium Chloride Carbon Dioxide Anion Gap BUN Creatinine Est GFR ( Amer) Est GFR (Non-Af Amer) POC Glucose (mg/dL) 100 Random Glucose Calcium Phosphorus Magnesium Total Bilirubin AST ALT Alkaline Phosphatase Troponin I Total Protein Albumin Globulin Albumin/Globulin Ratio CSF Cryptococcus Ag CMV Specimen Source CMV DNA Quant PCR CMV Qnt PCR log IU/mL Review of Systems - Review of Systems Systems not reviewed;Unavailable: Intubated Critical Care Progress Note - Nutrition Nutrition: Nutrition Category Date Time Status NPO Diet [DIET] Diets 12/30/17 Dinner Ordered Assessment/Plan - Assessment and Plan (Free Text) Assessment: This is a 52 yo M with 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 Patient was intubated for airway protection and sedated. He has continued to have seizure-like activity, requiring multiple anti-epileptic medications and sedation with propofol/versed/precedex, concerning for possible status epilepticus. Patient is pending EMTALA transfer/ Life-Flight to [facility], accepted by Dr. Gtz, today. Plan: Neuro: -continue sedation with Versed/Propofol/Precedex as experiences seizure-like activity with any weaning, concerning for possible status epilepticus; increase propofol to 50 for transit as per Neuro -MRI brain obtained, concerning for possible encephalitis vs reversible ischemia at medial aspect right thalmus; as per Neuro also 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 -As per Neuro, given Keppra 1.5g IV and Valproic Acid 1.5g IV x1 each in addition to scheduled doses, for transit; continue Thiamine 500mg IV daily for Wernicke's coverage given EtOH hx -As per Neuro, initial EEG positive for paroxysmal activity follow by periods of slow waves consistent with some epileptogenic activity of moderate bilateral cerebral dysfunction -maintain normothermia with PO tylenol liquid (can switch to cooling blanket if LFTs worsen); no fevers overnight -continue Acyclovir, Cefepime, and Vanco as per ID, 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 as per ; pending CSF results and repeat cultures -As per Neuro and ID: will obtain serum and CSF HSV/CMV PCR, Legionella CSF test , and NMDA receptor antibody test Cardio: -hx CAD and cardiomyopathy with EF 25% -cardiomyopathy likely 2/2 chronic alcohol abuse -Cardio following, appreciate all recs -Echo notable for moderately decreased LV systolic fxn, dilated LA, mild AR/TR, moderate MR (limited study due to pt on ventilator) Pulm: -intubated and sedated, tolerated initial pressure support trial well but failed last trial due to tachycardia and tachypnea -ABG CXR reviewed this AM -continue PRN suction due to secretions -maintain SaO2 > 90% and paO2 > 60 -VAP bundle, aspiration precautions -Pulm following, appreciate all recs GI: -NPO due to intubation -NGT in place -Protonix for GI ppx Renal: -making good urine output -monitor and replete electrolytes as needed; persistently losing K and Mg, aggressively repleting -Cr stable at 0.4 -Hx SIADH noncompliant with salt tab therapy; Na improved from 120 on admit to 131 this AM (was 132 yesterday) -Nephro consulted, appreciate all recs; started standing Mag and K, signed off Heme: -no signs of acute bleeding -Lovenox for DVT ppx -Hgb 7.7, no signs of bleeding ID: -no leukocytosis, no fevers overnight -empirically on acyclovir/cefepime/vanco as per ID -repeat procal 0.32, repeat cultures negative x72 hours -s/p lumbar puncture for CSF analysis, testing as above as per Neuro and ID, results pending Dispo: In ICU, intubated/sedated on Propofol/Versed/Precedex, pending CSF results, pending EMTALA transfer/Life-flight transfer (initiated by ) to [facility] in [facility] today FEN: NPO; Banana Bag 50cc/hr, NS 100cc/hr, Mag/K supplements as needed, Thiamine 500mg daily Access: peripheral IVs, PICC line Consults: Neuro, Cardio, ID, Nephro, Pulm Ppx: Protonix for GI, Lovenox for DVT Patient seen, reviewed, and discussed with attending, Dr. Jimenez <Juaquin Jimenez - Last Filed: 01/05/18 16:33> CCU Objective - Vital Signs / Intake & Output Vital Signs (Last 4 hours): Vital Signs Pulse Resp BP Pulse Ox 01/05/18 12:54 75 18 01/05/18 12:53 76 14 01/05/18 12:52 118/64 01/05/18 12:51 74 14 100 01/05/18 12:50 78 14 100 01/05/18 12:49 77 15 100 01/05/18 12:48 75 14 01/05/18 12:47 79 16 01/05/18 12:46 81 15 01/05/18 12:45 84 14 01/05/18 12:44 82 17 83 L 01/05/18 12:43 86 16 89 L 01/05/18 12:42 81 17 100 01/05/18 12:41 82 17 95 01/05/18 12:40 81 17 100 01/05/18 12:39 81 15 100 01/05/18 12:38 81 18 100 01/05/18 12:37 81 16 98 01/05/18 12:36 79 16 100 01/05/18 12:35 80 16 97 01/05/18 12:34 79 17 97 01/05/18 12:33 80 17 100 01/05/18 12:32 82 18 100 01/05/18 12:31 81 16 100 Intake and Output (Last 8hrs): Intake & Output 01/05/18 01/05/18 01/05/18 06:59 14:59 22:59 Intake Total 3090 400 Output Total 1500 Balance 1590 400 Weight 121 lb 14.4 oz Intake: IV 2150 400 Left Hand 500 Left Upper arm 500 Right Upper arm 1050 Tube Feeding 840 Other 100 Output: Urine 1500 Urethral (Terrell) 1500 Emesis 0 Other: # Bowel Movements 1 - Patient Studies Lab Studies: Microbiology Studies 01/03/18 15:10 Gram Stain - Final Cerebral Spinal Fluid CSF Culture - Preliminary NO GROWTH AFTER 2 DAYS 01/02/18 11:00 Blood Culture - Preliminary Blood NO GROWTH AFTER 3 DAYS Lab Studies 01/05/18 01/05/18 01/05/18 Range/Units 12:42 05:40 05:40 WBC 5.6 (4.5-11.0) 10^3/ul RBC 2.15 L (3.5-6.1) 10^6/uL Hgb 7.7 L (14.0-18.0) g/dL Hct 22.5 L (42.0-52.0) % MCV 104.7 (80.0-105.0) fl MCH 35.8 H (25.0-35.0) pg MCHC 34.2 (31.0-37.0) g/dl RDW 17.2 H (11.5-14.5) % Plt Count 216 (120.0-450.0) 10^3/uL MPV 9.0 (7.0-11.0) fl Gran % 64.0 (50.0-68.0) % Lymph % (Auto) 23.2 (22.0-35.0) % Gem % (Auto) 10.3 H (1.0-6.0) % Eos % (Auto) 1.6 (1.5-5.0) % Baso % (Auto) 0.9 (0.0-3.0) % Gran # 3.56 (1.4-6.5) Lymph # (Auto) 1.3 (1.2-3.4) Gem # (Auto) 0.6 (0.1-0.6) Eos # (Auto) 0.1 (0.0-0.7) Baso # (Auto) 0.05 (0.0-2.0) K/mm3 Sodium 134 (132-148) mmol/L Potassium 4.1 (3.6-5.0) mmol/L Chloride 104 (98-107) mmol/L Carbon Dioxide 25 (21-33) mmol/L Anion Gap 9 L (10-20) BUN 5 L (7-21) mg/dL Creatinine 0.3 L (0.8-1.5) mg/dl Est GFR ( Amer) > 60 Est GFR (Non-Af Amer) > 60 POC Glucose (mg/dL) 100 (65-110) mg/dL Random Glucose 108 (70-110) mg/dL Calcium 7.7 L (8.4-10.5) mg/dL Phosphorus 3.4 (2.5-4.5) mg/dL Magnesium 1.6 L (1.7-2.2) mg/dL Total Bilirubin 0.3 (0.2-1.3) mg/dL AST 63 H (17-59) U/L ALT 36 (7-56) U/L Alkaline Phosphatase 187 H (38-126) U/L Troponin I ng/mL Total Protein 4.9 L (5.8-8.3) g/dL Albumin 2.0 L (3.0-4.8) g/dL Globulin 2.8 gm/dL Albumin/Globulin Ratio 0.7 L (1.1-1.8) CSF Cryptococcus Ag (Not Detected) CMV Specimen Source CMV DNA Quant PCR IU/mL CMV Qnt PCR log IU/mL Log IU/mL 01/04/18 01/04/18 01/03/18 Range/Units 20:30 20:30 15:10 WBC 6.0 (4.5-11.0) 10^3/ul RBC 2.20 L (3.5-6.1) 10^6/uL Hgb 7.9 L (14.0-18.0) g/dL Hct 22.9 L (42.0-52.0) % MCV 104.1 (80.0-105.0) fl MCH 35.9 H (25.0-35.0) pg MCHC 34.5 (31.0-37.0) g/dl RDW 17.0 H (11.5-14.5) % Plt Count 206 (120.0-450.0) 10^3/uL MPV 8.9 (7.0-11.0) fl Gran % (50.0-68.0) % Lymph % (Auto) (22.0-35.0) % Gem % (Auto) (1.0-6.0) % Eos % (Auto) (1.5-5.0) % Baso % (Auto) (0.0-3.0) % Gran # (1.4-6.5) Lymph # (Auto) (1.2-3.4) Gem # (Auto) (0.1-0.6) Eos # (Auto) (0.0-0.7) Baso # (Auto) (0.0-2.0) K/mm3 Sodium 136 (132-148) mmol/L Potassium 4.2 (3.6-5.0) mmol/L Chloride 105 (98-107) mmol/L Carbon Dioxide 24 (21-33) mmol/L Anion Gap 11 (10-20) BUN 3 L (7-21) mg/dL Creatinine 0.3 L (0.8-1.5) mg/dl Est GFR ( Amer) > 60 Est GFR (Non-Af Amer) > 60 POC Glucose (mg/dL) (65-110) mg/dL Random Glucose 133 H (70-110) mg/dL Calcium 7.6 L (8.4-10.5) mg/dL Phosphorus 2.9 (2.5-4.5) mg/dL Magnesium 1.9 (1.7-2.2) mg/dL Total Bilirubin 0.3 (0.2-1.3) mg/dL AST 75 H (17-59) U/L ALT 40 (7-56) U/L Alkaline Phosphatase 199 H (38-126) U/L Troponin I < 0.01 D ng/mL Total Protein 5.0 L (5.8-8.3) g/dL Albumin 2.1 L (3.0-4.8) g/dL Globulin 2.9 gm/dL Albumin/Globulin Ratio 0.7 L (1.1-1.8) CSF Cryptococcus Ag Not detected (Not Detected) CMV Specimen Source CMV DNA Quant PCR IU/mL CMV Qnt PCR log IU/mL Log IU/mL 01/02/18 Range/Units 14:00 WBC (4.5-11.0) 10^3/ul RBC (3.5-6.1) 10^6/uL Hgb (14.0-18.0) g/dL Hct (42.0-52.0) % MCV (80.0-105.0) fl MCH (25.0-35.0) pg MCHC (31.0-37.0) g/dl RDW (11.5-14.5) % Plt Count (120.0-450.0) 10^3/uL MPV (7.0-11.0) fl Gran % (50.0-68.0) % Lymph % (Auto) (22.0-35.0) % Gem % (Auto) (1.0-6.0) % Eos % (Auto) (1.5-5.0) % Baso % (Auto) (0.0-3.0) % Gran # (1.4-6.5) Lymph # (Auto) (1.2-3.4) Gem # (Auto) (0.1-0.6) Eos # (Auto) (0.0-0.7) Baso # (Auto) (0.0-2.0) K/mm3 Sodium (132-148) mmol/L Potassium (3.6-5.0) mmol/L Chloride (98-107) mmol/L Carbon Dioxide (21-33) mmol/L Anion Gap (10-20) BUN (7-21) mg/dL Creatinine (0.8-1.5) mg/dl Est GFR ( Amer) Est GFR (Non-Af Amer) POC Glucose (mg/dL) (65-110) mg/dL Random Glucose (70-110) mg/dL Calcium (8.4-10.5) mg/dL Phosphorus (2.5-4.5) mg/dL Magnesium (1.7-2.2) mg/dL Total Bilirubin (0.2-1.3) mg/dL AST (17-59) U/L ALT (7-56) U/L Alkaline Phosphatase (38-126) U/L Troponin I ng/mL Total Protein (5.8-8.3) g/dL Albumin (3.0-4.8) g/dL Globulin gm/dL Albumin/Globulin Ratio (1.1-1.8) CSF Cryptococcus Ag (Not Detected) CMV Specimen Source Plasma CMV DNA Quant PCR <200 IU/mL CMV Qnt PCR log IU/mL <2.30 Log IU/mL Laboratory Results - last 24 hr 01/02/18 01/03/18 01/04/18 14:00 15:10 20:30 WBC 6.0 RBC 2.20 L Hgb 7.9 L Hct 22.9 L MCV 104.1 MCH 35.9 H MCHC 34.5 RDW 17.0 H Plt Count 206 MPV 8.9 Gran % Lymph % (Auto) Gem % (Auto) Eos % (Auto) Baso % (Auto) Gran # Lymph # (Auto) Gem # (Auto) Eos # (Auto) Baso # (Auto) Sodium Potassium Chloride Carbon Dioxide Anion Gap BUN Creatinine Est GFR ( Amer) Est GFR (Non-Af Amer) POC Glucose (mg/dL) Random Glucose Calcium Phosphorus Magnesium Total Bilirubin AST ALT Alkaline Phosphatase Troponin I Total Protein Albumin Globulin Albumin/Globulin Ratio CSF Cryptococcus Ag Not detected CMV Specimen Source Plasma CMV DNA Quant PCR <200 CMV Qnt PCR log IU/mL <2.30 01/04/18 01/05/18 01/05/18 20:30 05:40 05:40 WBC 5.6 RBC 2.15 L Hgb 7.7 L Hct 22.5 L MCV 104.7 MCH 35.8 H MCHC 34.2 RDW 17.2 H Plt Count 216 MPV 9.0 Gran % 64.0 Lymph % (Auto) 23.2 Gem % (Auto) 10.3 H Eos % (Auto) 1.6 Baso % (Auto) 0.9 Gran # 3.56 Lymph # (Auto) 1.3 Gem # (Auto) 0.6 Eos # (Auto) 0.1 Baso # (Auto) 0.05 Sodium 136 134 Potassium 4.2 4.1 Chloride 105 104 Carbon Dioxide 24 25 Anion Gap 11 9 L BUN 3 L 5 L Creatinine 0.3 L 0.3 L Est GFR ( Amer) > 60 > 60 Est GFR (Non-Af Amer) > 60 > 60 POC Glucose (mg/dL) Random Glucose 133 H 108 Calcium 7.6 L 7.7 L Phosphorus 2.9 3.4 Magnesium 1.9 1.6 L Total Bilirubin 0.3 0.3 AST 75 H 63 H ALT 40 36 Alkaline Phosphatase 199 H 187 H Troponin I < 0.01 D Total Protein 5.0 L 4.9 L Albumin 2.1 L 2.0 L Globulin 2.9 2.8 Albumin/Globulin Ratio 0.7 L 0.7 L CSF Cryptococcus Ag CMV Specimen Source CMV DNA Quant PCR CMV Qnt PCR log IU/mL 01/05/18 12:42 WBC RBC Hgb Hct MCV MCH MCHC RDW Plt Count MPV Gran % Lymph % (Auto) Gem % (Auto) Eos % (Auto) Baso % (Auto) Gran # Lymph # (Auto) Gem # (Auto) Eos # (Auto) Baso # (Auto) Sodium Potassium Chloride Carbon Dioxide Anion Gap BUN Creatinine Est GFR ( Amer) Est GFR (Non-Af Amer) POC Glucose (mg/dL) 100 Random Glucose Calcium Phosphorus Magnesium Total Bilirubin AST ALT Alkaline Phosphatase Troponin I Total Protein Albumin Globulin Albumin/Globulin Ratio CSF Cryptococcus Ag CMV Specimen Source CMV DNA Quant PCR CMV Qnt PCR log IU/mL Critical Care Progress Note - Nutrition Nutrition: Nutrition Category Date Time Status NPO Diet [DIET] Diets 12/30/17 Dinner Ordered Attending/Attestation - Attestation I have personally seen and examined this patient.: Yes I have fully participated in the care of the patient.: Yes I have reviewed all pertinent clinical information: Yes Notes (Text): 01/05/18 16:30 52 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 Intubated, on propofol and versed drip , no siezures on last EEG (while on drips). at bedside and is aware about inherent risk of air travel in above condition. She verbalized understanding. She doesnt want monitoring in nearby hospital. Protective lung vent strategy, HOB>35, oral hygiene, cont EEG monitoring, wean off drips as tolerated, MAP>65. DVT/GI prophyalxis ccm time 40 min
--- NOTE | 2018-01-05 17:21 | PN ---
DATE: 01/05/2018 PULMONARY PROGRESS NOTE SUBJECTIVE: The patient was seen and examined at Intensive Care Unit. I examined the patient together with Dr. Juaquin Jimenez, associate media planner. We reviewed his pulmonary status and ventilator management. PHYSICAL EXAMINATION: VITAL SIGNS: Temperature 97.9, pulse 80, respirations 18, pulse oximetry is 100% on mechanical ventilation. LUNGS: Clear to auscultation. HEART: Regular. ABDOMEN: Soft, nontender. EXTREMITIES: No pedal edema. LABORATORY DATA: His electrolytes were reviewed. Cardiac troponin was normal. WBC is 5.6, hemoglobin of 7.7. No arterial blood gas is available for review. ASSESSMENT: 1. Acute respiratory failure. 2. Seizure disorder. I reviewed today's chest x-ray, which has just done, not read yet, it reveals clear lungs. There are no infiltrates or no congestion. I was made aware by Dr. Jimenez that the plan is to transfer to a Neurology ICU in where the patient lives is in [place]. Arrangements are being made for air transportation. We will follow on a p.r.n. basis. Reji Mcconnell MD
--- NOTE | 2018-01-06 07:40 | DS ---
HISTORY OF PRESENT ILLNESS: He is being discharged from the intensive care unit. He is going to be life-flighted to a hospital in [place] at 12:30 today. He will be put in the neuro intensive care unit at the hospital of the family's choice. They were hoping for an extubation and improvement, but he is still having recurrent seizures, alcohol withdrawal, acute respiratory failure, diabetes, cardiomyopathy dilated, and low potassium and we are replacing. MEDICATIONS: He is on multiple medications, acyclovir, Ativan, Azactam 2 g, Diprivan, levetiracetam, Lovenox, magnesium, midazolam, potassium, Precedex, Protonix, thiamine, Tylenol, valproic and vancomycin. LABORATORY DATA: He has 134 sodium, potassium 4.1, BUN is 5, creatinine 0.3, GFR is greater than 60, sugar is 108, calcium is 7.7, phosphorus is 3.4, magnesium 1.6, total bili is 0.3, AST is 63, ALT is 36, alk phos 187. Last troponin I was less than 0.01. Albumin is 4.9. He has 5.6 white count, 7.7 hemoglobin. If it continues to decrease, he might need to be transfused when he gets to [place] or wherever he is going in [place]. Hematocrit is 22.5, platelets are 216. IMPRESSION: He will be life-flighted to a hospital in [place] at 12:30 today as per family's request, hopefully he will do well. Julian West DO
[2018-01-06 10:31] LABS: SOURCE: CEREBROSPINAL FLUID
[2018-01-06 21:22] LABS: SPECIMEN SOURCE CSF
--- NOTE | 2018-01-09 08:42 | EEG ---
DATE: 01/04/2018 TECHNICAL INFORMATION: Please note this EEG was acquired using 16 electrodes placed using a 10-20 [employer] electrode system. All electrodes were referenced to A1/A2, P1/P2 respectively. Continuous seizure monitoring was done using spike detection services. BACKGROUND: There was extremely abnormal background, very low amplitude with no normal awake rhythms or sleep noted. There is a burst suppression pattern. The bursts were approximately 2 to 3 seconds long. At times, they were by one second, at times there were continuous for 3 seconds. This is a pattern that was continuous throughout the record. There were no other clinical seizures. IMPRESSION: This is an abnormal electroencephalogram that shows burst suppression pattern, which could be secondary to severe anoxic encephalopathy. Beth Walters MD
== END 2018-01-05 13:00 | disposition short-term general hospital (02) | DRG 100 ==
LOC: ED 08:04 → ERH 12:31 → CCU 13:26
PROVIDERS: ADMIT Family Medicine; ATTEND Family Medicine
PROC: 5A1955Z Respiratory Ventilation, Greater than 96 Consecutive Hours (ICD-10-PCS; principal; 2017-12-30)
PROC: 0BH17EZ Insertion of Endotracheal Airway into Trachea, Via Natural or Artificial Opening (ICD-10-PCS; 2017-12-30)
PROC: 05HM33Z Insertion of Infusion Device into Right Internal Jugular Vein, Percutaneous Approach (ICD-10-PCS; 2017-12-31)
PROC: B543ZZA Ultrasonography of Right Jugular Veins, Guidance (ICD-10-PCS; 2017-12-31)
PROC: 009U3ZX Drainage of Spinal Canal, Percutaneous Approach, Diagnostic (ICD-10-PCS; 2018-01-02)
PROC: 02HV33Z Insertion of Infusion Device into Superior Vena Cava, Percutaneous Approach (ICD-10-PCS; 2018-01-03)
PROC: B54MZZA Ultrasonography of Right Upper Extremity Veins, Guidance (ICD-10-PCS; 2018-01-03)
DX: G40.419 Other generalized epilepsy and epileptic syndromes, intractable, without status epilepticus (principal); J96.00 Acute respiratory failure, unspecified whether with hypoxia or hypercapnia; J69.0 Pneumonitis due to inhalation of food and vomit; I42.0 Dilated cardiomyopathy; F10.231 Alcohol dependence with withdrawal delirium; E87.1 Hypo-osmolality and hyponatremia; J98.11 Atelectasis; E87.3 Alkalosis; Z99.11 Dependence on respirator [ventilator] status; E11.65 Type 2 diabetes mellitus with hyperglycemia; I11.0 Hypertensive heart disease with heart failure; I50.9 Heart failure, unspecified; J44.9 Chronic obstructive pulmonary disease, unspecified; I25.10 Atherosclerotic heart disease of native coronary artery without angina pectoris; E86.0 Dehydration; E87.6 Hypokalemia; I49.3 Ventricular premature depolarization; E83.42 Hypomagnesemia; D64.9 Anemia, unspecified; I34.0 Nonrheumatic mitral (valve) insufficiency; Z98.1 Arthrodesis status; Z88.0 Allergy status to penicillin; I25.2 Old myocardial infarction; Z87.442 Personal history of urinary calculi; Z91.19 Patient's noncompliance with other medical treatment and regimen; Z86.73 Personal history of transient ischemic attack (TIA), and cerebral infarction without residual deficits